=== PATIENT | male | born 1940 | race Caucasian/White ===

== ENCOUNTER 2017-09-07 21:29 | Emergency (ER) | payer MEDICARE ==
--- NOTE | 2017-09-07 22:02 | ED Physician Documentation ---
PD HPI Fall - Stated complaint Stated Complaint: GLF/LFA & FINGER INJURY - Chief complaint Chief Complaint: Laceration - History obtained from History obtained from: Patient - History of Present Illness Timing - onset: How many hours ago (2) Injury(ies) location: Left Uppper Extremity Associated symptoms: No: LOC, AMS, Neck pain, Weakness, Paresthesias Recently seen: Not recently seen - Additional information Additional information: while mowing lawn, fell from mower onto a retaining wall, sustained injury to left FA and left fifth finger. he is right-hand dominant. last tetanus shot unknown. Review of Systems Skin: reports: Abrasion (s), Laceration (s) Musculoskeletal: reports: Extremity pain (mild left fifth finger and left FA pain) Neurologic: denies: Focal weakness, Numbness, Headache, Head injury, LOC PD PAST MEDICAL HISTORY - Past Medical History Past Medical History: Yes Cardiovascular: Hypertension, High cholesterol Endocrine/Autoimmune: Type 2 diabetes, HyPOthyroidism : Nocturia, Frequency Psych: Anxiety Musculoskeletal: Osteoarthritis, Chronic back pain, Other - Past Surgical History Past Surgical History: No - Present Medications Home Medications: Ambulatory Orders Medication Instructions Recorded Confirmed Aspirin 325 mg PO DAILY 09/09/16 12/20/16 Fluticasone Propionate 16 gm NS BID 09/09/16 12/20/16 Furosemide [Lasix] 80 mg PO DAILY 09/09/16 12/20/16 Insulin NPH Hum/Reg Insulin Hm 28 - 50 unit SQ BIDWM 09/09/16 12/20/16 [Humulin 70/30 Kwikpen] Levothyroxine Sodium 100 mcg PO QDBREAKFAST 09/09/16 12/20/16 Lovastatin 20 mg PO QPM 09/09/16 12/20/16 Metformin HCl 1,000 mg PO BIDWM 09/09/16 12/20/16 [place]-3/Dha/Epa/Fish Oil [[place] 3 1 each PO DAILY 09/09/16 12/20/16 500 Softgel] Potassium Chloride 20 meq PO DAILY 09/09/16 12/20/16 Pregabalin [Lyrica] 675 mg PO DAILY 09/09/16 12/20/16 Tamsulosin [Flomax] 0.4 mg PO DAILY 09/09/16 12/20/16 Valsartan [Diovan] 320 mg PO DAILY 09/09/16 12/20/16 - Allergies Allergies/Adverse Reactions: Allergies Allergy/AdvReac Type Severity Reaction Status Date / Time No Known Drug Allergies Allergy Verified 09/07/17 21:37 - Social History Does the pt smoke?: No Smoking Status: Never smoker Does the pt drink ETOH?: No Does the pt have substance abuse?: No - Immunizations Immunizations are current?: No Immunizations: TDAP >10years/unknown PD ED PE NORMAL - Vitals Vital signs reviewed: Yes - General General: Alert and oriented X 3, No acute distress - Extremities Extremities: No tenderness to palpate, Normal ROM s pain - Neuro Neuro: Alert and oriented X 3, No motor deficit, No sensory deficit PD ED PE EXPANDED - Extremities Extremities: Other (ROM intact in left FA (able to supinate and pronate without difficulty or pain)) JOYCE UE/Hands Visual: 1 - bruising, abrasion 2 - laceration (1) 3 - laceration (crescentic skin tear) Results - Vitals Vitals: Vital Signs - 24 hr 09/07/17 09/07/17 21:34 23:34 Temperature 36.5 C 36.7 C Heart Rate 68 66 Respiratory 18 18 Rate Blood Pressure 150/109 H 187/97 H O2 Saturation 97 94 Oxygen O2 Source Room air Procedures - Laceration (location) Finger left Palmar Length in cm: 1 Wound type: Linear Neurovascular status: Sensory intact, Motor intact, Vascular intact Tendon involvement: Tendon intact Anesthesia: Lidocaine 1% Wound Preparation: Chlorhexadine, Irrigated copiously NS, Wound explored. No: FB identified Skin layer closure: Nylon, Running, Size #-0 - enter number (5-0) Other: Patient tolerated well, No complications, Neurovascular intact, Dressing applied, Tetanus booster given Complexity: Simple PD MEDICAL DECISION MAKING - ED course Complexity details: considered differential, d/w patient Departure - Departure Disposition: 01 Home, Self Care Clinical Impression: Injury of hand Qualifiers: Encounter type: initial encounter Laterality: left Qualified Code(s): S69.92XA - Unspecified injury of left wrist, hand and finger(s), initial encounter Laceration of finger of left hand Qualifiers: Encounter type: initial encounter Finger: little finger Damage to nail status: without damage Foreign body presence: without foreign body Qualified Code(s): S61.217A - Laceration without foreign body of left little finger without damage to nail, initial encounter Condition: Good Instructions: ED Laceration Hand Follow-Up: Adrián Ulloa DO [Primary Care Provider] - Comments: You will need the stitches removed in one week Discharge Date/Time: 09/07/17 23:34
[2017-09-07] MEDS ORDERED: TETANUS/DIPHTHERIA/PERTUSSIS 0.5 ML SYRINGE IM ONE (22:22)
[2017-09-07] MEDS ORDERED: LIDOCAINE 1% 2 ML VIAL SUBQ STA (22:22)
[2017-09-07] MEDS ORDERED: LIDOCAINE 1% 2 ML VIAL ONE (22:31)
[2017-09-07 23:39] VITALS: BP 187/97
== END 2017-09-07 23:34 | disposition home or self-care (01) ==
LOC: ED 22:21
DX: S69.92XA Unspecified injury of left wrist, hand and finger(s), initial encounter (principal); S61.217A Laceration without foreign body of left little finger without damage to nail, initial encounter; W22.09XA Striking against other stationary object, initial encounter; W17.89XA Other fall from one level to another, initial encounter; Y93.H2 Activity, gardening and landscaping; E11.9 Type 2 diabetes mellitus without complications; Z23 Encounter for immunization; I10 Essential (primary) hypertension; E03.9 Hypothyroidism, unspecified; E78.00 Pure hypercholesterolemia, unspecified; Z79.4 Long term (current) use of insulin
CPT/HCPCS: 12001; 90471; 99282; 99284

== ENCOUNTER 2018-02-10 10:24 | Outpatient (CLI) | payer MEDICARE | END 2018-02-10 10:25 | disposition EMS.NT | LOC: EMS 10:24 | PROVIDERS: ATTEND Surgery | DX: R73.09 Other abnormal glucose (principal) ==

== ENCOUNTER 2018-10-02 08:00 | Outpatient (CLI) | payer MEDICARE ==
[2018-10-02 14:36] LABS: BASOPHILS # (AUTO) 0.1 10^3/uL (0.0-0.1); BASOPHILS % (AUTO) 0.6 %; EOSINOPHILS # (AUTO) 0.4 10^3/uL (0.0-0.7); EOSINOPHILS % (AUTO) 4.6 %; HGB - HEMOGLOBIN 16.8 g/dL (14.0-18.0); LYMPHOCYTES # (AUTO) 1.7 10^3/uL (1.5-3.5); LYMPHOCYTES % (AUTO) 20.5 %; MEAN CORPUSCULAR HEMOGLOBIN 32.3 pg (27.0-31.0); MEAN CORPUSCULAR HGB CONC 33.6 g/dL (32.0-36.0); MEAN CORPUSCULAR VOLUME 96.1 fL (80.0-94.0); MEAN PLATELET VOLUME 10.6 fL (7.4-11.4); MONOCYTES # (AUTO) 0.7 10^3/uL (0.0-1.0); MONOCYTES % (AUTO) 8.6 %; NEUTROPHILS # (AUTO) 5.5 10^3/uL (1.5-6.6); NEUTROPHILS % (AUTO) 65.7 %; PLT - PLATELET COUNT 133 10^3/uL (130-450); RED BLOOD COUNT 5.21 10^6/uL (4.70-6.10); WHITE BLOOD COUNT 8.4 x10^3/uL (4.8-10.8)
[2018-10-02 14:52] LABS: ALBUMIN 3.6 g/dL (3.2-5.5); ALBUMIN/GLOBULIN RATIO 0.9 (1.0-2.2); ALKALINE PHOSPHATASE 67 IU/L (42-121); ALT ALANINE AMINOTRANSFERASE 20 IU/L (10-60); AST ASPARTATE AMINOTRANSFERASE 24 IU/L (10-42); BILIRUBIN,TOTAL 0.9 mg/dL (0.2-1.0); BUN - BLOOD UREA NITROGEN 25 mg/dL (6-20); CALCIUM 9.2 mg/dL (8.5-10.3); CARBON DIOXIDE - CO2 27 mmol/L (21-32); CHLORIDE 103 mmol/L (101-111); CHOL/HDL RATIO 4.7 (<5.0); CHOLESTEROL 150 mg/dL; CREATININE 1.3 mg/dL (0.6-1.2); GFR - MDRD 53 (>89); GLUCOSE 200 mg/dL (70-100); HDL CHOLESTEROL 32 mg/dL; LDL CHOLESTEROL,CALCULATED 83 mg/dL; LDL/HDL RATIO 2.6 (<3.6); SODIUM 141 mmol/L (135-145); TOTAL PROTEIN 7.6 g/dL (6.7-8.2); VLDL CHOLESTEROL 35 mg/dL
[2018-10-02 15:29] LABS: HB2 TOTAL 18.5 g/dL; HEMOGLOBIN A1C 1.22 g/dL; HEMOGLOBIN A1C % 8.2 % (4.6-6.2)
== END 2018-10-02 23:59 | disposition home or self-care (01) ==
LOC: LAB.WCP 08:00
PROVIDERS: ATTEND Family Medicine
DX: E11.9 Type 2 diabetes mellitus without complications (principal); E03.9 Hypothyroidism, unspecified
CPT/HCPCS: 36415; 80053; 80061; 83036; 83721; 84443; 85025

== ENCOUNTER 2018-12-02 23:35 | Outpatient (CLI) | payer MEDICARE | END 2018-12-02 23:36 | disposition critical access hospital (66) | LOC: EMS 23:35 | PROVIDERS: ATTEND Surgery | DX: R53.1 Weakness (principal); R29.6 Repeated falls | CPT/HCPCS: A0425; A0429 ==

== ENCOUNTER 2018-12-02 23:50 | Emergency (ER) | payer MEDICARE ==
--- NOTE | 2018-12-03 00:03 | ED Physician Documentation ---
History of Present Illness - Stated complaint Stated Complaint: INCREASING WEAKNESS, FALLS - Chief complaint Chief Complaint: Neuro - History obtained from History obtained from: Patient, Family - History of Present Illness Timing: Today - Additonal information Additional information: This is a 78-year-old man who presents with his family complaints that he is just "weak in the knees today". He cannot function. He is fallen 3 times today and after the final fall he was unable to get up so they had to call the ambulance to help get him up. He denies injury in the fall but while he was on the ground trying to get himself up he did scrape up the tops of his toes on both feet. He has been feeling short of breath over the past few days with cough. He did not know if he had asthma or COPD but does use inhalers. He says he has been bringing up phlegm. Patient's been lightheaded but he has not passed out of. He is been nauseous but no vomiting or diarrhea. Denies chest pain or palpitations. The patient is an insulin-dependent diabetic his blood sugar was in the 300s this morning was 188 later in the day. He does not use sliding scale. Patient reports a history of [place] but no stent placement. Denies any dysuria. No fevers. Review of Systems Constitutional: denies: Fever Eyes: denies: Loss of vision Ears: denies: Ear pain Nose: denies: Congestion Throat: denies: Sore throat Cardiac: denies: Chest pain / pressure, Palpitations Respiratory: reports: Dyspnea, Cough GI: reports: Nausea. denies: Abdominal Pain, Vomiting, Diarrhea : denies: Dysuria, Frequency, Incontinent Skin: reports: Abrasion (s). denies: Rash Neurologic: reports: Generalized weakness, Numbness (Diabetic neuropathy) Endocrine: reports: Other (Elevated blood glucose) PD PAST MEDICAL HISTORY - Past Medical History Cardiovascular: Hypertension, High cholesterol Endocrine/Autoimmune: Type 2 diabetes, HyPOthyroidism : Nocturia, Frequency Psych: Anxiety Musculoskeletal: Osteoarthritis, Chronic back pain, Other - Past Surgical History Past Surgical History: No - Present Medications Home Medications: Ambulatory Orders Medication Instructions Recorded Confirmed Furosemide [Lasix] 40 mg PO DAILY 09/09/16 12/03/18 Insulin NPH Hum/Reg Insulin Hm 28 - 50 unit SQ BIDWM 09/09/16 12/03/18 [Humulin 70/30 Kwikpen] [place]-3/Dha/Epa/Fish Oil [[place] 3 1 each PO DAILY 09/09/16 12/03/18 500 Softgel] Pregabalin [Lyrica] 675 mg PO DAILY 09/09/16 12/03/18 RX: Aspirin 325 mg PO DAILY 09/09/16 12/03/18 RX: Levothyroxine Sodium 100 mcg PO QDBREAKFAST 09/09/16 12/03/18 RX: Lovastatin 20 mg PO QPM 09/09/16 12/03/18 RX: Potassium Chloride 20 meq PO DAILY 09/09/16 12/03/18 Valsartan [Diovan] 320 mg PO DAILY 09/09/16 12/03/18 RX: Carvedilol 2 tab PO BID 12/03/18 12/03/18 RX: Gabapentin 2 cap PO QPM 12/03/18 12/03/18 - Allergies Allergies/Adverse Reactions: Allergies Allergy/AdvReac Type Severity Reaction Status Date / Time No Known Drug Allergies Allergy Verified 12/03/18 00:30 - Social History Does the pt smoke?: No Smoking Status: Never smoker Does the pt drink ETOH?: No Does the pt have substance abuse?: No - Immunizations Immunizations are current?: No Immunizations: TDAP >10years/unknown PD ED PE NORMAL - Vitals Vital signs reviewed: Yes - General General: Alert and oriented X 3, No acute distress, Well developed/nourished - HEENT HEENT: Atraumatic, PERRL, EOMI, Moist mucous membranes - Neck Neck: No adenopathy, Thyroid normal, No bruit - Cardiac Cardiac: RRR, No murmur, Strong equal pulses - Respiratory Respiratory: No respiratory distress, Clear bilaterally - Abdomen Abdomen: Normal bowel sounds, Soft, Non tender, Non distended - Derm Derm: Normal color, Warm and dry, No rash, Other (Abrasions over the tops of the great and second toes both feet worse on the left than the right.) - Extremities Extremities: No deformity, Other (There is 1+ pitting edema of the lower extremity on the right and some pedal edema on the left.) - Neuro Neuro: Alert and oriented X 3, child welfare caseworker 2-12 intact, No motor deficit, Normal speech, Other (Diminished sensation from about the just above the ankles to the feet bilaterally.) - Psych Psych: Normal mood, Normal affect Results - Vitals Vitals: Vital Signs - 24 hr 12/02/18 12/03/18 12/03/18 23:52 00:26 00:44 Temperature 37.2 C Heart Rate 69 94 66 Respiratory 18 16 14 Rate Blood Pressure 146/88 H 164/71 H 154/90 H O2 Saturation 95 66 L 93 12/03/18 12/03/18 02:23 03:07 Temperature 36.7 C Heart Rate 70 63 Respiratory 14 20 Rate Blood Pressure 132/40 H 117/84 H O2 Saturation 94 96 Oxygen O2 Source Room air - EKG (time done) 2352 Rate: Rate (enter#) Rhythm: NSR Intervals: LBBB Ischemia: Non specific changes Compare to prior EKG: Old EKG unavailable Computer interpretation: Agree with computer - Labs Labs: Laboratory Tests 12/03/18 12/03/18 12/03/18 00:15 00:29 00:29 WBC 13.7 H RBC 5.08 Hgb 16.6 Hct 50.3 MCV 99.0 H MCH 32.7 H MCHC 33.0 RDW 13.5 Plt Count 144 MPV 11.4 Neut # (Auto) 10.8 H Lymph # (Auto) 1.4 L [place] # (Auto) 1.1 H Eos # (Auto) 0.3 Baso # (Auto) 0.1 Absolute Nucleated RBC 0.00 Nucleated RBC % 0.0 Sodium 144 Potassium 4.0 Chloride 106 Carbon Dioxide 27 Anion Gap 11.0 BUN 34 H Creatinine 1.5 H Estimated GFR (MDRD) 45 L Glucose 77 Calcium 9.0 Total Bilirubin 1.3 H AST 44 H ALT 24 Alkaline Phosphatase 64 Troponin I High Sens Total Protein 7.2 Albumin 3.6 Globulin 3.6 Albumin/Globulin Ratio 1.0 Lipase 34 Urine Color YELLOW Urine Clarity CLEAR Urine pH 5.0 Ur Specific [place] 1.025 Urine Protein 30 H Urine Glucose (UA) 250 H Urine Ketones NEGATIVE Urine Occult Blood NEGATIVE Urine Nitrite NEGATIVE Urine Bilirubin NEGATIVE Urine Urobilinogen 0.2 (NORMAL) Ur Leukocyte Esterase NEGATIVE Urine RBC None Seen Urine WBC 0-3 Ur Squamous Epith Cells MOD Squamous H Urine Bacteria Rare Urine Casts 6-10 Hyaline Casts Ur Microscopic Review INDICATED Urine Culture Comments NOT INDICATED 12/03/18 00:29 WBC RBC Hgb Hct MCV MCH MCHC RDW Plt Count MPV Neut # (Auto) Lymph # (Auto) [place] # (Auto) Eos # (Auto) Baso # (Auto) Absolute Nucleated RBC Nucleated RBC % Sodium Potassium Chloride Carbon Dioxide Anion Gap BUN Creatinine Estimated GFR (MDRD) Glucose Calcium Total Bilirubin AST ALT Alkaline Phosphatase Troponin I High Sens 9.9 Total Protein Albumin Globulin Albumin/Globulin Ratio Lipase Urine Color Urine Clarity Urine pH Ur Specific [place] Urine Protein Urine Glucose (UA) Urine Ketones Urine Occult Blood Urine Nitrite Urine Bilirubin Urine Urobilinogen Ur Leukocyte Esterase Urine RBC Urine WBC Ur Squamous Epith Cells Urine Bacteria Urine Casts Ur Microscopic Review Urine Culture Comments PD MEDICAL DECISION MAKING - ED course Complexity details: reviewed results, d/w patient, d/w family ED course: EKG does not show acute ischemic changes. His high-sensitivity troponin is normal. Minimal elevation of his white blood cell count but normal electrolytes and negative urinalysis. Patient does have a walker at home but does not use it consistently and eats when he is not using a walker that he falls. He is referred back to his primary care provider for further management and return to the emergency department if problems arise. Departure - Departure Disposition: 01 Home, Self Care Clinical Impression: Weakness, Falls frequently Condition: Good Instructions: ED Weakness [facility]O Follow-Up: Adrián Ulloa DO [Primary Care Provider] - Comments: Use your walker at all times when you are up and ambulating. Make a follow-up appointment your primary care provider to evaluate the frequent falls to see if there is a reason that can be found for them. Discharge Date/Time: 12/03/18 03:35
[2018-12-03 00:28] LABS: BILIRUBIN,URINE NEGATIVE (NEGATIVE); GLUCOSE, URINE (UA) 250 mg/dL (NEGATIVE); KETONES,URINE (UA) NEGATIVE (NEGATIVE); LEUKOCYTE ESTERASE, URINE NEGATIVE (NEGATIVE); NITRITE,URINE NEGATIVE (NEGATIVE); OCCULT BLOOD,URINE NEGATIVE (NEGATIVE); PROTEIN,URINE 30 mg/dL (NEGATIVE); UROBILINOGEN,URINE 0.2 (NORMAL) E.U./dL (NORMAL)
[2018-12-03 00:31] LABS: CLARITY,URINE CLEAR (CLEAR)
[2018-12-03 00:42] LABS: BACTERIA,URINE Rare /HPF (None Seen); CASTS, URINE 6-10 Hyaline Casts /LPF; RBC,URINE None Seen /HPF (0-5); SQUAMOUS EPITHELIAL CELL,UR MOD Squamous (<= Few)
[2018-12-03 00:43] LABS: BASOPHILS # (AUTO) 0.1 10^3/uL (0.0-0.1); BASOPHILS % (AUTO) 0.4 %; EOSINOPHILS # (AUTO) 0.3 10^3/uL (0.0-0.7); HGB - HEMOGLOBIN 16.6 g/dL (14.0-18.0); LYMPHOCYTES # (AUTO) 1.4 10^3/uL (1.5-3.5); LYMPHOCYTES % (AUTO) 10.1 %; MEAN CORPUSCULAR HEMOGLOBIN 32.7 pg (27.0-31.0); MEAN PLATELET VOLUME 11.4 fL (7.4-11.4); MONOCYTES # (AUTO) 1.1 10^3/uL (0.0-1.0); NEUTROPHILS # (AUTO) 10.8 10^3/uL (1.5-6.6); NEUTROPHILS % (AUTO) 78.8 %; PLT - PLATELET COUNT 144 10^3/uL (130-450); RED BLOOD COUNT 5.08 10^6/uL (4.70-6.10); RED CELL DISTRIBUTION WIDTH 13.5 % (12.0-15.0); WHITE BLOOD COUNT 13.7 x10^3/uL (4.8-10.8)
[2018-12-03 00:52] LABS: ALBUMIN 3.6 g/dL (3.2-5.5); BILIRUBIN,TOTAL 1.3 mg/dL (0.2-1.0); CREATININE 1.5 mg/dL (0.6-1.2); TOTAL PROTEIN 7.2 g/dL (6.7-8.2)
[2018-12-03 03:08] VITALS: BP 117/84
== END 2018-12-03 03:35 | disposition home or self-care (01) ==
LOC: EDUNIT# → ED 23:50
DX: R53.1 Weakness (principal); S90.412A Abrasion, left great toe, initial encounter; S90.411A Abrasion, right great toe, initial encounter; S90.415A Abrasion, left lesser toe(s), initial encounter; S90.414A Abrasion, right lesser toe(s), initial encounter; W19.XXXA Unspecified fall, initial encounter; I10 Essential (primary) hypertension; E11.9 Type 2 diabetes mellitus without complications; Z91.81 History of falling; Z79.4 Long term (current) use of insulin
CPT/HCPCS: 36415; 80053; 81001; 81003; 83690; 84484; 85025; 87086; 93005; 99284

== ENCOUNTER 2018-12-05 08:00 | Outpatient (CLI) | payer MEDICARE ==
[2018-12-05 18:59] LABS: BASOPHILS # (AUTO) 0.1 10^3/uL (0.0-0.1); BASOPHILS % (AUTO) 0.5 %; EOSINOPHILS # (AUTO) 0.4 10^3/uL (0.0-0.7); EOSINOPHILS % (AUTO) 4.2 %; HGB - HEMOGLOBIN 15.9 g/dL (14.0-18.0); LYMPHOCYTES # (AUTO) 1.8 10^3/uL (1.5-3.5); LYMPHOCYTES % (AUTO) 19.8 %; MEAN CORPUSCULAR HEMOGLOBIN 32.3 pg (27.0-31.0); MEAN PLATELET VOLUME 12.3 fL (7.4-11.4); MONOCYTES # (AUTO) 0.9 10^3/uL (0.0-1.0); MONOCYTES % (AUTO) 10.3 %; NEUTROPHILS # (AUTO) 5.9 10^3/uL (1.5-6.6); NEUTROPHILS % (AUTO) 64.5 %; PLT - PLATELET COUNT 161 10^3/uL (130-450); RED BLOOD COUNT 4.92 10^6/uL (4.70-6.10); RED CELL DISTRIBUTION WIDTH 13.5 % (12.0-15.0); WHITE BLOOD COUNT 9.1 x10^3/uL (4.8-10.8)
[2018-12-05 19:22] LABS: CRP - C-REACTIVE PROTEIN 1.9 mg/dL (0-1.0)
== END 2018-12-05 23:59 | disposition home or self-care (01) ==
LOC: LAB.WCP 08:00
PROVIDERS: ATTEND Family Medicine
DX: R53.1 Weakness (principal); M54.5 Low back pain; D72.829 Elevated white blood cell count, unspecified
CPT/HCPCS: 36415; 82550; 85025; 85651; 86140

== ENCOUNTER 2019-01-03 02:33 | Outpatient (CLI) | payer MEDICARE | END 2019-01-03 02:34 | disposition short-term general hospital (02) | LOC: EMS 02:33 | PROVIDERS: ATTEND Surgery | DX: R41.82 Altered mental status, unspecified (principal); R73.09 Other abnormal glucose | CPT/HCPCS: A0425; A0427; A0888 ==

== ENCOUNTER 2019-01-07 14:44 | Outpatient (CLI) | payer MEDICARE ==
[2019-01-08 15:48] VITALS: BP 140/90
--- NOTE | 2019-01-08 15:48 | SLEEP CARE CONSULTATION ---
Information from patient questionnaire entered by Imelda Preciado. I have reviewed and concur with the information entered by Imelda Preciado. This document represents the service I personally performed and the decisions made by me, Harriet Lee MD, [facility]. History of Present Illness Reason for Visit: New patient Chief Complaint: reports: Insomnia, Unrefreshed sleep, Snoring, Excessive daytime sleepiness, Observed pauses in breathing, Fatigue, Frequent awakenings at night Duration of Symptoms: 2 MONTHS Snores at night: Yes Observed to quit breathing while asleep: No Sleeps alone due to snoring: Yes Number of times waking at night: 1 Toss, Turn, or Twitch while sleeping: No Recalls having dreams: No Usually gets out of bed at: 0700 Morning headache: No Sleepy or fatigued during the day: No Ever fallen asleep while driving: No Takes day naps: Yes Dreams during day naps: No Additional HPI information: I had the pleasure of seeing Mr. Cormier today regarding the possibility of him having a sleep disorder. As you know, he is a 78 year old gentleman who complains of insomnia, loud snore, frequent awakenings, unrefreshed sleep persistent fatigue, and excessive daytime sleepiness for the past few months. The patient tells me that he normally goes to bed around 8 - 9 pm, and it takes him approximately just a few minutes to fall asleep. He has not been told that he snores loudly and irregularly at night. He has never been observed to stop breathing in his sleep. His can still sleep in the same bed. He can recall waking up on the average of one time during the night. Most of the time he wakes up because of having to use the bathroom. He has never awakened because of his own snoring, choking, or having to gasp for air. There is not a lot of tossing and turning in his sleep. No somniloquy (sleep talking) or somnambulism (sleep walking). Generally he cannot recall having dreams. In the morning he usually gets up out of the bed around 7 a.m. feeling refreshed and rested. He usually does not have a morning headache. During the day he complains of feeling sleepy and fatigued. His score on [place] Sleepiness Scale is 23 out of 24. He has never fallen asleep while driving nor has had any accident due to sleepiness. He usually takes 2 naps during the day. Upon falling asleep during the day he denies having vivid dreams. He has never had sleep paralysis, experienced cataplexy or symptoms of restless leg syndrome. He denies having impaired concentration during the day. Subjective Initial [place] Sleepiness Scale score: 23 Social History The patient's occupation is RETIRED. Patient is and lives in [place]. Have you smoked in the past 12 months: Yes Alcohol use: No Caffeine use: No Allergies and Home Medications Drug allergies reviewed: Yes Home medication list reviewed: Yes Review of Systems Cardiovascular: reports: leg or foot swelling Respiratory: denies: shortness of breath, wheeze, sputum production, chronic cough, other Gastrointestinal: denies: heartburn, difficulty swallowing, nausea, vomitting, diarrhea, abdominal pain, other Urinary: denies: incontinence, frequency, urgency, impotence, other Neurological: denies: headaches, seizure, head trauma, disorientation, speech dysfunction, gait or balance problems, fainting or unconsciousness, other Psychiatric: denies: Attention Deficit Hyperactivity, anxiety, depression, mood disorder, claustrophobia, other Ear/Nose/Throat: denies: nasal congestion, sinus problems, nose bleeds, dry mouth/throat, hoarseness, injury to nose, tonsillectomy, wisdom teeth removed, other Endocrine: denies: thyroid disease, history of goiter, sluggishness, too hot or cold, excessive thirst, increased appetite, increased urination, unexplained weakness, other Musculoskeletal: reports: back pain Immunologic: denies: sneezing, rash, itching, allergies to food or environment, other Physical Exam Vital signs obtained and entered by: Dr. Lee Blood Pressure: 140/90 Cuff size: long Heart Rate: 73 O2 Saturation: 93 Height: 5 ft 9 in Weight (kg): 246 lb Body Mass Index: 36.3 BMI Classification: Class 2 Neck circumference: 16.5 Mood/affect: normal HEENT: No craniofacial malformation Nostrils: patent to airflow Turbinates: normal Septum: midline Mouth and throat: narrow oropharynx Soft palate: long Hard palate: normal Uvula: normal Uvula visualization: 25% Mallampati Class III Tongue: normal in size Tonsils: absent bilaterally Chin and jaw: normal size and position Neck: normal w/o lymphadenopathy or thyromegaly Heart: regular rate and rhythm Lungs: clear bilaterally Abdomen: soft Extremities: 1+ edema Neurologic: intact Impression and Plan IMPRESSION: 1. Obstructive Sleep Apnea-Hypopnea Syndrome, as suggested by history of loud and irregular snoring and daytime hypersomnolence. Narrow oropharynx and obesity are common predisposing factors for obstructive sleep apnea-hypopnea syndrome. Untreated obstructive sleep apnea can also cause hypertension. Pathophysiology of sleep-disordered breathing was discussed. I recommend proceeding to polysomnography to confirm the diagnosis and to assess severity. I informed the patient of what the sleep studies involve and after some discussion, he agreed to proceed. Plan: 1. Schedule polysomnography and return in 1 to 2 weeks after the study to discuss result and initiate therapy. 2. Avoid long distance driving or when feeling sleepy. 3. Avoid alcohol, sedative and muscle relaxant around bedtime. 4. Attempt to lose weight. I spent 100% of this 15 minute visit face to face with the patient with greater than 50% of this was spent time counseling the patient and coordination of care.
== END 2019-01-07 14:45 | disposition home or self-care (01) ==
LOC: SC 14:44
PROVIDERS: ATTEND Internal Medicine Pulmonary Disease
DX: G47.10 Hypersomnia, unspecified (principal); R06.83 Snoring
CPT/HCPCS: 99203; G0463; 99212

== ENCOUNTER 2019-02-13 08:00 | Outpatient (CLI) | payer MEDICARE ==
[2019-02-13 12:42] LABS: ALBUMIN 3.6 g/dL (3.2-5.5); BILIRUBIN,TOTAL 1.1 mg/dL (0.2-1.0); CALCIUM 9.1 mg/dL (8.5-10.3); CREATININE 1.3 mg/dL (0.6-1.2); TOTAL PROTEIN 7.3 g/dL (6.7-8.2)
[2019-02-13 13:32] LABS: HB2 TOTAL 17.9 g/dL; HEMOGLOBIN A1C 1.01 g/dL; HEMOGLOBIN A1C % 7.3 % (4.6-6.2)
== END 2019-02-13 23:59 | disposition home or self-care (01) ==
LOC: LAB.WCP 08:00
PROVIDERS: ATTEND Family Medicine
DX: E11.9 Type 2 diabetes mellitus without complications (principal); Z12.5 Encounter for screening for malignant neoplasm of prostate
CPT/HCPCS: 36415; 80053; 83036; G0103; 84153

== ENCOUNTER 2019-07-05 08:00 | Outpatient (CLI) | payer MEDICARE ==
[2019-07-05 12:23] LABS: BASOPHILS # (AUTO) 0.1 10^3/uL (0.0-0.1); BASOPHILS % (AUTO) 0.7 %; EOSINOPHILS # (AUTO) 0.5 10^3/uL (0.0-0.7); EOSINOPHILS % (AUTO) 5.9 %; HGB - HEMOGLOBIN 17.5 g/dL (14.0-18.0); LYMPHOCYTES # (AUTO) 1.6 10^3/uL (1.5-3.5); LYMPHOCYTES % (AUTO) 19.9 %; MEAN CORPUSCULAR HEMOGLOBIN 32.8 pg (27.0-31.0); MEAN CORPUSCULAR HGB CONC 33.3 g/dL (32.0-36.0); MEAN CORPUSCULAR VOLUME 98.5 fL (80.0-94.0); MONOCYTES # (AUTO) 0.9 10^3/uL (0.0-1.0); MONOCYTES % (AUTO) 10.6 %; NEUTROPHILS # (AUTO) 5.1 10^3/uL (1.5-6.6); PLT - PLATELET COUNT 161 10^3/uL (130-450); RED BLOOD COUNT 5.33 10^6/uL (4.70-6.10); RED CELL DISTRIBUTION WIDTH 13.4 % (12.0-15.0); WHITE BLOOD COUNT 8.2 x10^3/uL (4.8-10.8)
[2019-07-05 12:38] LABS: INR 1.2 (0.8-1.2); PT - PROTHROMBIN TIME 13.9 secs (9.9-12.6)
[2019-07-05 12:45] LABS: PARTIAL THROMBOPLASTIN TIME 37.8 secs (24.9-33.3)
[2019-07-05 12:54] LABS: ALBUMIN 3.8 g/dL (3.2-5.5); BILIRUBIN,TOTAL 1.1 mg/dL (0.2-1.0); CREATININE 1.2 mg/dL (0.6-1.2); TOTAL PROTEIN 7.5 g/dL (6.7-8.2)
[2019-07-05 13:18] LABS: HB2 TOTAL 17.9 g/dL; HEMOGLOBIN A1C 1.16 g/dL; HEMOGLOBIN A1C % 8.1 % (4.6-6.2)
== END 2019-07-05 23:59 | disposition home or self-care (01) ==
LOC: LAB.WCP 08:00
PROVIDERS: ATTEND Family Medicine
DX: G91.2 (Idiopathic) normal pressure hydrocephalus (principal); E11.9 Type 2 diabetes mellitus without complications
CPT/HCPCS: 36415; 80053; 83036; 85025; 85610; 85730; 87640

== ENCOUNTER 2019-08-07 13:23 | Outpatient (CLI) | payer MEDICARE | END 2019-08-07 13:24 | disposition short-term general hospital (02) | LOC: EMS 13:23 | PROVIDERS: ATTEND Surgery | DX: S09.90XA Unspecified injury of head, initial encounter (principal); R42 Dizziness and giddiness; W11.XXXA Fall on and from ladder, initial encounter; Y92.099 Unspecified place in other non-institutional residence as the place of occurrence of the external cause; R41.82 Altered mental status, unspecified | CPT/HCPCS: A0425; A0429 ==

== ENCOUNTER 2019-09-26 08:12 | Outpatient (CLI) | payer MEDICARE ==
[2019-09-26 12:04] LABS: BASOPHILS # (AUTO) 0.1 10^3/uL (0.0-0.1); BASOPHILS % (AUTO) 0.7 %; EOSINOPHILS # (AUTO) 0.4 10^3/uL (0.0-0.7); EOSINOPHILS % (AUTO) 4.4 %; HGB - HEMOGLOBIN 17.2 g/dL (14.0-18.0); LYMPHOCYTES # (AUTO) 1.9 10^3/uL (1.5-3.5); LYMPHOCYTES % (AUTO) 21.5 %; MEAN CORPUSCULAR HEMOGLOBIN 32.8 pg (27.0-31.0); MEAN CORPUSCULAR VOLUME 99.4 fL (80.0-94.0); MEAN PLATELET VOLUME 12.5 fL (7.4-11.4); MONOCYTES # (AUTO) 0.8 10^3/uL (0.0-1.0); MONOCYTES % (AUTO) 9.3 %; NEUTROPHILS # (AUTO) 5.5 10^3/uL (1.5-6.6); NEUTROPHILS % (AUTO) 63.2 %; PLT - PLATELET COUNT 137 10^3/uL (130-450); RED BLOOD COUNT 5.24 10^6/uL (4.70-6.10); RED CELL DISTRIBUTION WIDTH 13.4 % (12.0-15.0); WHITE BLOOD COUNT 8.7 x10^3/uL (4.8-10.8)
[2019-09-26 12:13] LABS: INR 1.2 (0.8-1.2); PT - PROTHROMBIN TIME 13.4 secs (9.9-12.6)
[2019-09-26 12:21] LABS: PARTIAL THROMBOPLASTIN TIME 37.6 secs (24.9-33.3)
[2019-09-26 12:34] LABS: ALBUMIN 3.5 g/dL (3.2-5.5); ALBUMIN/GLOBULIN RATIO 0.9 (1.0-2.2); BILIRUBIN,TOTAL 0.9 mg/dL (0.2-1.0); CALCIUM 8.7 mg/dL (8.5-10.3); CREATININE 1.3 mg/dL (0.6-1.2); TOTAL PROTEIN 7.2 g/dL (6.7-8.2)
[2019-09-26 12:50] LABS: HB2 TOTAL 18.1 g/dL; HEMOGLOBIN A1C 1.13 g/dL; HEMOGLOBIN A1C % 7.9 % (4.6-6.2)
== END 2019-09-26 23:59 | disposition home or self-care (01) ==
LOC: LAB.WCP 08:12
PROVIDERS: ATTEND Family Medicine
DX: G91.2 (Idiopathic) normal pressure hydrocephalus (principal)
CPT/HCPCS: 36415; 80053; 83036; 85025; 85610; 85730; 87640

== ENCOUNTER 2020-06-03 08:00 | Outpatient (CLI) | payer MEDICARE ==
[2020-06-03 13:35] LABS: BASOPHILS # (AUTO) 0.1 10^3/uL (0.0-0.1); BASOPHILS % (AUTO) 0.9 %; EOSINOPHILS # (AUTO) 0.8 10^3/uL (0.0-0.7); EOSINOPHILS % (AUTO) 8.9 %; HGB - HEMOGLOBIN 16.8 g/dL (14.0-18.0); LYMPHOCYTES # (AUTO) 2.2 10^3/uL (1.5-3.5); LYMPHOCYTES % (AUTO) 23.9 %; MEAN CORPUSCULAR HEMOGLOBIN 33.3 pg (27.0-31.0); MEAN CORPUSCULAR HGB CONC 32.9 g/dL (32.0-36.0); MEAN CORPUSCULAR VOLUME 101.4 fL (80.0-94.0); MEAN PLATELET VOLUME 12.6 fL (7.4-11.4); MONOCYTES # (AUTO) 0.8 10^3/uL (0.0-1.0); MONOCYTES % (AUTO) 9.1 %; NEUTROPHILS # (AUTO) 5.2 10^3/uL (1.5-6.6); NEUTROPHILS % (AUTO) 56.4 %; PLT - PLATELET COUNT 152 10^3/uL (130-450); RED BLOOD COUNT 5.04 10^6/uL (4.70-6.10); RED CELL DISTRIBUTION WIDTH 13.2 % (12.0-15.0); WHITE BLOOD COUNT 9.1 x10^3/uL (4.8-10.8)
[2020-06-03 14:10] LABS: ALBUMIN 3.6 g/dL (3.2-5.5); ALKALINE PHOSPHATASE 77 IU/L (42-121); ALT ALANINE AMINOTRANSFERASE 15 IU/L (10-60); AST ASPARTATE AMINOTRANSFERASE 14 IU/L (10-42); BILIRUBIN,TOTAL 0.9 mg/dL (0.2-1.0); BUN - BLOOD UREA NITROGEN 27 mg/dL (6-20); CALCIUM 9.1 mg/dL (8.5-10.3); CARBON DIOXIDE - CO2 30 mmol/L (21-32); CHLORIDE 99 mmol/L (101-111); CHOL/HDL RATIO 4.7 (<5.0); CHOLESTEROL 147 mg/dL; CREATININE 1.2 mg/dL (0.6-1.2); GLUCOSE 163 mg/dL (70-100); HDL CHOLESTEROL 31 mg/dL; LDL CHOLESTEROL,CALCULATED 83 mg/dL; LDL/HDL RATIO 2.7 (<3.6); TOTAL PROTEIN 7.3 g/dL (6.7-8.2); VLDL CHOLESTEROL 33 mg/dL
[2020-06-03 14:59] LABS: HEMOGLOBIN A1c% 8.3 % (4.27-6.07)
[2020-06-03 17:57] LABS: FREE T4 (FREE THYROXINE) 0.92 ng/dL (0.58-1.64)
[2020-06-03 18:25] LABS: CREATININE,URINE 155.2 mg/dL; MICROALBUM/CREATININE RATIO,UR 42.5 ug/mg (<30.0); MICROALBUMIN,URINE 6.6 mg/dL (0-300.0)
== END 2020-06-03 23:59 | disposition home or self-care (01) ==
LOC: LAB.WCP 08:00
PROVIDERS: ATTEND Family Medicine
DX: E11.9 Type 2 diabetes mellitus without complications (principal)
CPT/HCPCS: 36415; 80053; 80061; 82043; 82570; 83036; 83721; 84439; 84443; 85025

== ENCOUNTER 2020-12-21 12:15 | Outpatient (CLI) | payer MEDICARE ==
--- NOTE | 2020-12-21 17:58 | XRAY Report ---
PROCEDURE: Lumbar Spine 2 View INDICATIONS: ACUTE LOW BACK PX TECHNIQUE: 3 views of the lumbar spine were acquired. COMPARISON: None. FINDINGS: Bones: 5 [id number] vertebrae are present. Severe disc height loss at L2-3 and moderate disc he ight loss L4-5 and L5-S1. Degenerative vertebral body height loss and endplate spur formation at ever y level. Moderate osteophytosis throughout the lumbar spine.. Bone alignment is normal. No vertebral body compression fractures. No suspicious bony lesions. Soft tissues: Overlying bowel gas pattern is normal. No suspicious soft tissue calcifications. Justin triculoperitoneal shunt tubing courses over the right abdomen and terminates in the pelvis. There is moderate atherosclerotic calcification. IMPRESSION: 1. There is severe degenerative disc height loss at L2-3 and moderate disc height loss elsewhere. 2. No acute vertebral body fractures. If there is continued concern for occult fracture, consider MR imaging. Reviewed by: Ludmila Roque MD on 12/21/2020 5:56 PM PDT Approved by: Ludmila Roque MD on 12/21/2020 5:56 PM PDT Station ID: [id number]
== END 2020-12-21 12:16 | disposition home or self-care (01) ==
LOC: DI.N 12:15
PROVIDERS: ATTEND Family Medicine
DX: M51.36 Other intervertebral disc degeneration, lumbar region (principal); M51.37 Other intervertebral disc degeneration, lumbosacral region; E11.9 Type 2 diabetes mellitus without complications
CPT/HCPCS: 36415; 80053; 83036

== ENCOUNTER 2020-12-21 12:21 | Outpatient (CLI) | payer MEDICARE ==
[2020-12-21 18:17] LABS: ALBUMIN 3.7 g/dL (3.2-5.5); ALBUMIN/GLOBULIN RATIO 0.9 (1.0-2.2); BILIRUBIN,TOTAL 1.3 mg/dL (0.2-1.0); CALCIUM 9.3 mg/dL (8.5-10.3); CREATININE 1.3 mg/dL (0.6-1.2); POTASSIUM 4.2 mmol/L (3.5-5.0); TOTAL PROTEIN 7.9 g/dL (6.7-8.2)
[2020-12-21 20:05] LABS: ESTIMATED AVERAGE GLUCOSE 209 mg/dL (70-100); HEMOGLOBIN A1c% 8.9 % (4.27-6.07)
== END 2020-12-21 12:22 | disposition home or self-care (01) ==
LOC: LAB.N 12:21
PROVIDERS: ATTEND Family Medicine
DX: E11.9 Type 2 diabetes mellitus without complications (principal)
CPT/HCPCS: 36415; 80053; 83036

== ENCOUNTER 2020-12-23 08:00 | Outpatient (CLI) | payer MEDICARE | END 2020-12-23 23:59 | disposition home or self-care (01) | LOC: LAB.WCP 08:00 | PROVIDERS: ATTEND Family Medicine | DX: R05 Cough (principal); Z20.822 Contact with and (suspected) exposure to COVID-19 ==

== ENCOUNTER 2020-12-23 08:34 | Outpatient (CLI) | payer MEDICARE ==
--- NOTE | 2020-12-23 09:31 | XRAY Report ---
PROCEDURE: Chest 2 View X-Ray INDICATIONS: COUGH TECHNIQUE: 2 view(s) of the chest. COMPARISON: None. FINDINGS: Surgical changes and devices: None. Lungs and pleura: No pleural effusions or pneumothorax. Lungs are abnormal, with a chronic intersti tial prominence. Considering differences in technique this likely has not worsened. No focal pneumoni a found. Mediastinum: Mediastinal contours are normal. Heart size is at the upper limits of normal. Bones and chest wall: No suspicious bony abnormalities. Soft tissues appear unremarkable. IMPRESSION: Chronic interstitial prominence, heart size at the upper limits of normal but focal pneu monia or definite acute congestive heart failure is not found. Note is made of a catheter like device crossing over the right neck and medial right chest and tobin sing inferiorly towards the abdomen, potentially evidence of a ventriculostomy catheter. Reviewed by: Marcin Cha MD on 12/23/2020 9:29 AM PDT Approved by: Marcin Cha MD on 12/23/2020 9:29 AM PDT Station ID: [id number]
== END 2020-12-23 08:35 | disposition home or self-care (01) ==
LOC: DI.N 08:34
PROVIDERS: ATTEND Family Medicine
DX: R05 Cough (principal); J84.9 Interstitial pulmonary disease, unspecified; Z20.822 Contact with and (suspected) exposure to COVID-19
CPT/HCPCS: 71046; U0004

== ENCOUNTER 2020-12-31 21:06 | Observation (INO) | payer MEDICARE ==
[2020-12-31] MEDS ORDERED: IOPAMIDOL-300 100 ML VIAL ONE (21:38)
--- NOTE | 2020-12-31 21:38 | ED Physician Documentation ---
History of Present Illness - Stated complaint Stated Complaint: WEAKNESS - Chief complaint Chief Complaint: Neuro - Additonal information Additional information: 80-year-old male who carries a history of diabetes and hypertension presents to the emergency department for evaluation of right-sided weakness as well as multiple falls. now reporting right hand weakness and right hip pain. This gentleman reports that at baseline he usually walks with a walker but over the last month he has fallen approximately 5 times. He states that he simply loses his balance and falls backward. He states that now his right hand is mildly weak. He is unsure if this is occurred since the fall last night or if it has been getting progressively worse over the last week. He states he is having difficulty holding a pen or doing fine motor movements. Patient denies that he is having a syncopal episodes. He has not had any lapses in consciousness. He denies chest pain or shortness of air. He has baseline bilateral lower extremity edema which is unchanged. He has no cough or fevers. He is fully vaccinated for COVID-19. Review of Systems Constitutional: denies: Fever, Chills Eyes: reports: Reviewed and negative Ears: reports: Reviewed and negative Nose: reports: Reviewed and negative Throat: reports: Reviewed and negative Cardiac: reports: Pedal edema (at baseline). denies: Chest pain / pressure, Palpitations Respiratory: reports: Reviewed and negative GI: reports: Reviewed and negative : reports: Reviewed and negative Skin: denies: Rash, Lesions Musculoskeletal: reports: Joint pain (right hip) Neurologic: reports: Focal weakness (right hand). denies: Syncope, Seizure, Confused, Altered mental status, Headache, Head injury, LOC PD PAST MEDICAL HISTORY - Past Medical History Cardiovascular: Hypertension, High cholesterol Endocrine/Autoimmune: Type 2 diabetes, HyPOthyroidism : Nocturia, Frequency Psych: Anxiety Musculoskeletal: Osteoarthritis, Chronic back pain, Other - Past Surgical History Past Surgical History: No - Present Medications Home Medications: Ambulatory Orders Medication Instructions Recorded Confirmed Aspirin 325 mg PO DAILY 09/09/16 12/31/20 Furosemide [Lasix] 40 mg PO DAILY 09/09/16 12/31/20 Insulin NPH Hum/Reg Insulin Hm 28 - 50 unit SQ BIDWM 09/09/16 12/31/20 [Humulin 70/30 Kwikpen] Levothyroxine Sodium 100 mcg PO QDBREAKFAST 09/09/16 12/31/20 Lovastatin 20 mg PO QPM 09/09/16 12/31/20 [place]-3/Dha/Epa/Fish Oil [[place] 3 1 each PO DAILY 09/09/16 12/31/20 500 Softgel] Potassium Chloride 20 meq PO DAILY 09/09/16 12/31/20 Pregabalin [Lyrica] 675 mg PO DAILY 09/09/16 12/31/20 Carvedilol 1 tab PO BID 12/03/18 12/31/20 Gabapentin 3 cap PO QPM 12/03/18 12/31/20 Telmisartan 80 mg PO QID 12/31/20 12/31/20 allopurinoL [Zyloprim] 200 mg PO QID 12/31/20 12/31/20 - Allergies Allergies/Adverse Reactions: Allergies Allergy/AdvReac Type Severity Reaction Status Date / Time No Known Drug Allergies Allergy Verified 12/03/18 00:30 - Social History Does the pt smoke?: No Smoking Status: Never smoker Does the pt drink ETOH?: No Does the pt have substance abuse?: No - Immunizations Immunizations are current?: No Immunizations: TDAP >10years/unknown - POLST Patient has POLST: No PD ED PE EXPANDED - General General: Alert, No acute distress, Other (obese) - Cardiac Cardiac: Regular Rate, Radial strong equal, Pedal strong equal. No: Irregularly irregular, Murmur Present - Respiratory Respiratory: Clear to ausultation krupa. No: Distress, Labored - Abdomen Abdomen: Normal Bowel sounds. No: Tender to palpation - Back Back: Normal exam. No: Soft tissue tenderness - Derm Derm: Normal color, Warm and dry. No: Rash - Extremities Extremities: Tenderness, Right hip (Tenderness to palpation the proximal femur. Normal internal and external rotation without click. No malrotation. No leg shortening.), Pedal edema bilateral (Unchanged from baseline), Pedal Pulses Present - Neuro Neuro: Alert and Oriented X 3, CNII-XII intact, Normal speech, Dysarthria (very mild dysarthria of the right arm. No motor weakness noted). No: Nystagmus, Normal finger nose (Mild dysarthria noted with finger-nose on the right hand. He does have some mild entry operator strength weakness of the right hand comparatively to the left.) - GCS Eye Opening: Spontaneous Motor: Obeys Commands Verbal: Oriented Total: 15 Results - Vitals Vitals: Vital Signs - 24 hr 12/31/20 12/31/20 12/31/20 21:18 21:40 23:21 Temperature 36.6 C Heart Rate 79 71 68 Respiratory 16 19 20 Rate Blood Pressure 166/69 H 145/76 H 166/69 H O2 Saturation 97 92 98 01/01/21 01/01/21 01/01/21 02:03 06:17 09:33 Temperature 36.6 C 36.4 C L Heart Rate 68 82 82 Respiratory 18 22 16 Rate Blood Pressure 148/101 H 146/118 H 155/124 H O2 Saturation 99 94 94 Oxygen O2 Source Room air - EKG (time done) 2205 Rate: Rate (enter#) (71) Rhythm: NSR, Other (PAC's) Cherry: Anterior hemiblock Intervals: Prolonged MO, Prolonged QT Ischemia: Q waves Compare to prior EKG: Changed from prior EKG Computer interpretation: Agree with computer - Labs Labs: Laboratory Tests 12/31/20 12/31/20 12/31/20 21:41 21:41 21:41 WBC 8.7 RBC 4.22 L Hgb 14.0 Hct 42.4 MCV 100.5 H MCH 33.2 H MCHC 33.0 RDW 13.4 Plt Count 150 MPV 11.7 H Neut # (Auto) 5.5 Lymph # (Auto) 1.9 [place] # (Auto) 0.9 Eos # (Auto) 0.3 Baso # (Auto) 0.0 Absolute Nucleated RBC 0.00 Nucleated RBC % 0.0 PT 13.8 H INR 1.2 Sodium 138 Potassium 4.1 Chloride 101 Carbon Dioxide 29 Anion Gap 8.0 BUN 37 H Creatinine 1.6 H Estimated GFR (MDRD) 42 L Glucose 292 H Calcium 8.7 Total Bilirubin 0.8 AST 18 ALT 19 Alkaline Phosphatase 76 Total Protein 7.1 Albumin 3.3 Globulin 3.8 Albumin/Globulin Ratio 0.9 L Lipase 30 01/01/21 08:47 WBC RBC Hgb Hct MCV MCH MCHC RDW Plt Count MPV Neut # (Auto) Lymph # (Auto) [place] # (Auto) Eos # (Auto) Baso # (Auto) Absolute Nucleated RBC Nucleated RBC % PT INR Sodium 138 Potassium 4.2 Chloride 103 Carbon Dioxide 26 Anion Gap 9.0 BUN 28 H Creatinine 1.3 H Estimated GFR (MDRD) 53 L Glucose 257 H Calcium 8.6 Total Bilirubin AST ALT Alkaline Phosphatase Total Protein Albumin Globulin Albumin/Globulin Ratio Lipase - Rads (name of study) right hip xr Radiology: Final report received (Suspect nondisplaced subacute right acetabular fracture. Femur intact.) angio neck Radiology: Final report received (No significant stenosis aneurysm or lesions) angio head Radiology: Final report received (MICROBIAL SPECIALIST shunt in place. No significant aneurysms lesions or bleeding noted) CT right hip Radiology: Final report received (Possible posterior superior acetabular fracture. Questionable subacute) PD MEDICAL DECISION MAKING - ED course Complexity details: reviewed old records, reviewed results, re-evaluated patient, d/w patient ED course: 80-year-old male presents the emergency department for evaluation after fall yesterday evening in which he has Subsequently developed some mild dysarthria of the right arm but no motor weakness However the patient thinks this may have been developing over the last week. He has not lost consciousness with his falls. He walks with a walker and just reports that he gets off balance. However he denies if that he is having fainting episodes. There is no chest pain or shortness of air. On initial exam he does have very mild weakness noted of the right hand and a mild dysarthria as well. CT angio of the head and neck is pending though this gentleman is well outside the stroke/TPA window. Screening EKG does not show any acute deficits and there is no new murmur noted. 2044: X-ray of the right hip suggests a right acetabular fracture. I discussed this with Dr. Disla on-call for Ortho. He does recommend follow-up with a CT of the hip. If it is a nondisplaced acetabular fracture unfortunately this gentleman will need to be nonweightbearing for 4 to 6 weeks. 2300: Patient is signed out to my colleague Dr. Henning to follow-up on the CT angio head and neck results as well as the follow-up CT of the lower extremity to evaluate acetabular fracture. However this gentleman will likely need to remain in the emergency department for social work consult pending disposition 01/01/2021 1130M: CT of the hip has been reviewed and interpreted as suspected posterior and superior subacute right hip fracture. PT and OT consult is pending on this gentleman. I have instituted his daily medications that he would typically receive at home. Social work is continuing to evaluate for placement. The CT angios of his head and neck did not she was acute worrisome process. There is in place a MICROBIAL SPECIALIST shunt, for unclear etiology. 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 at this time, my suspicion that the falls are related to TIA is very low. he did present with some mild dysarthria of the right arm, but no motor weakness. Departure - Departure Clinical Impression: Falls frequently, History of diabetes mellitus, MICROBIAL SPECIALIST (ventriculoperitoneal) shunt status Closed right acetabular fracture Qualifiers: Encounter type: initial encounter Sublocation of acetabulum: unspecified portion of acetabulum Fracture alignment: nondisplaced Qualified Code(s): S32.401A - Unspecified fracture of right acetabulum, initial encounter for closed fracture
[2020-12-31 21:54] LABS: BASOPHILS % (AUTO) 0.5 %; EOSINOPHILS # (AUTO) 0.3 10^3/uL (0.0-0.7); EOSINOPHILS % (AUTO) 3.7 %; HCT - HEMATOCRIT 42.4 % (42.0-52.0); LYMPHOCYTES # (AUTO) 1.9 10^3/uL (1.5-3.5); LYMPHOCYTES % (AUTO) 21.2 %; MEAN CORPUSCULAR HEMOGLOBIN 33.2 pg (27.0-31.0); MEAN CORPUSCULAR VOLUME 100.5 fL (80.0-94.0); MEAN PLATELET VOLUME 11.7 fL (7.4-11.4); MONOCYTES # (AUTO) 0.9 10^3/uL (0.0-1.0); MONOCYTES % (AUTO) 10.4 %; NEUTROPHILS # (AUTO) 5.5 10^3/uL (1.5-6.6); NEUTROPHILS % (AUTO) 63.3 %; PLT - PLATELET COUNT 150 10^3/uL (130-450); RED BLOOD COUNT 4.22 10^6/uL (4.70-6.10); RED CELL DISTRIBUTION WIDTH 13.4 % (12.0-15.0); WHITE BLOOD COUNT 8.7 x10^3/uL (4.8-10.8)
[2020-12-31 22:01] LABS: INR 1.2 (0.8-1.2); PT - PROTHROMBIN TIME 13.8 secs (9.9-12.6)
[2020-12-31 22:08] LABS: ALBUMIN 3.3 g/dL (3.2-5.5); ALBUMIN/GLOBULIN RATIO 0.9 (1.0-2.2); BILIRUBIN,TOTAL 0.8 mg/dL (0.2-1.0); CALCIUM 8.7 mg/dL (8.5-10.3); CREATININE 1.6 mg/dL (0.6-1.2); POTASSIUM 4.1 mmol/L (3.5-5.0); TOTAL PROTEIN 7.1 g/dL (6.7-8.2)
[2020-12-31] MEDS ORDERED: IOPAMIDOL-300 100 ML VIAL IVP ONE (22:41)
[2020-12-31] MEDS ORDERED: SODIUM CHLORIDE 0.9% 1,000 ML IV STA (22:54)
--- NOTE | 2021-01-01 08:16 | XRAY Report ---
PROCEDURE: Hip w/Pelvis 2-3V RT INDICATIONS: pain after fall TECHNIQUE: AP pelvis with lateral view(s) of the bilateral hip(s). COMPARISON: None. FINDINGS: Bones: There is mild irregularity and bony offset involving the right superior acetabulum. Pelvic rin g appears intact. No suspicious bony lesions. Mild joint space narrowing and periarticular osteophy te formation bilaterally at the hip joints. Soft tissues: The visualized bowel gas pattern is normal. No suspicious soft tissue calcifications. IMPRESSION: Possible right acetabular fracture. Concordant with preliminary interpretation. Reviewed by: Nayeli Etienne MD on 01/01/2021 8:15 AM PDT Approved by: Nayeli Etienne MD on 01/01/2021 8:15 AM PDT Station ID: [id number]
--- NOTE | 2021-01-01 08:28 | CT Report ---
PROCEDURE: LOWER EXTREMITY WO - RT INDICATIONS: right acetabular fx; include hip and prox femur TECHNIQUE: Noncontrast 3 mm axial sections acquired of the right hip, with coronal and sagittal reformats. COMPARISON: None. FINDINGS: Image quality: Excellent. Bones: Extensive degenerative marginal spurring, subchondral sclerosis and cystic changes present at the right hip joint. Linear lucency involving the posterior acetabulum and posterior acetabular roof is noted, which could reflect fracture line although the CT appearance raises the possibility of chr onic or subacute age. This could be ununited marginal/rim osteophytes. Recommend clinical correlation . Elsewhere, no fracture identified. Cortical irregularity involving the superior acetabular roof, probably chronic/degenerative. The radi ographic appearance from the comparison study may correlate to non-corticated cyst image 104/5 on the current exam. Soft tissues: Extensive right hip soft tissue swelling/contusion. Possible small intramuscular hemat alexus and or trochanteric bursal fluid/blood. IMPRESSION: Possible posterior/superior acetabular fracture, although the CT appearance raises the possibility of chronic or subacute age. Please correlate clinically and as necessary, further evaluation with nonco ntrast MRI could be performed to assess for acute marrow edema. Right hip soft tissue edema/contusion. Additional chronic and incidental findings as detailed above. Findings are concordant with the prelim inary study interpretation provided at the time of the study. Reviewed by: Tommy Leo MD on 01/01/2021 8:26 AM PDT Approved by: Tommy Leo MD on 01/01/2021 8:26 AM PDT Station ID: [id number]
[2021-01-01] MEDS: INSULIN NPH HUMAN 100 UNIT/1 ML 10 ML MDV SUBQ SCH ×2 (08:46→22:10)
[2021-01-01] MEDS: carvediloL 3.125 MG TABLET PO SCH ×3 (08:46→22:23)
[2021-01-01] MEDS: POTASSIUM CHLORIDE 20 MEQ TABLET PO SCH (08:47)
[2021-01-01] MEDS ORDERED: allopurinoL 100 MG TABLET PO SCH ×2 (09:00→21:00)
[2021-01-01] MEDS ORDERED: FUROSEMIDE 20 MG TABLET PO SCH (09:00)
[2021-01-01] MEDS ORDERED: LEVOTHYROXINE 100 MCG TABLET PO SCH (09:00)
[2021-01-01 09:03] LABS: CALCIUM 8.6 mg/dL (8.5-10.3); CREATININE 1.3 mg/dL (0.6-1.2); POTASSIUM 4.2 mmol/L (3.5-5.0)
--- NOTE | 2021-01-01 13:04 | CT Report ---
PROCEDURE: ANGIO HEAD W/WO INDICATIONS: right sided weakness after fall CONTRAST: IV CONTRAST: Isovue 300 ml: 80 PO CONTRAST: *NO PO CONTRAST TECHNIQUE: Precontrast 4.5 mm thick angled axial sections acquired from the foramen magnum to the vertex. Afte r the administration of intravenous contrast, 1 mm thick sections acquired through the [place] of [place] is. Postcontrast 4.5 mm thick sections then re-acquired from the foramen magnum to the vertex. 3-di mensional dqlxvzs-enwqtlghb-bjbyhumjoo (MIP) and/or volume rendering reformats were acquired of the c entral intracranial vasculature. For radiation dose reduction, the following was used: automated ex posure control, adjustment of mA and/or kV according to patient size. COMPARISON: MRA neck 12/31/2020, MRI brain/MRA brain 16 FINDINGS: Image quality: Excellent. Anterior circulation: Intracranial internal carotid arteries are normal in size and flow. The flow within the paired anterior cerebral arteries is normal and symmetric. The flow within the middle cer ebral arteries is normal and symmetric. The anterior communicating artery is seen. No aneurysms are seen. Posterior circulation: Visualized portions of the vertebral arteries demonstrate normal caliber, and join to form a normal appearing basilar artery. Flow within the posterior cerebral arteries is norm al and symmetric. No aneurysms are seen. CSF spaces: Ventricles are normal in size and shape. Basal cisterns are patent. No extra-axial flu id collections. WINDOWS APPLICATION DEVELOPER shunt right side approach is present, across the midline in the foramen. Brain: No midline shift. No intracranial bleeds or masses. [place]-white matter interface appears int act. Skull and face: Calvarium and facial bones appear intact, without suspicious lesions. Sinuses: Visualized sinuses and mastoids are clear. IMPRESSION: 1. No acute intracranial process. 2. Moderate atrophy and chronic microvascular ischemic changes. 3. No areas of hemodynamically significant stenosis, vascular occlusion or aneurysmal dilation within the anterior or posterior circulation. The above findings are concordant with preliminary report. Reviewed by: Brenda Pike MD on 01/01/2021 1:03 PM PDT Approved by: Brenda Pike MD on 01/01/2021 1:03 PM PDT Station ID: [id number]
--- NOTE | 2021-01-01 13:24 | ED Physician Documentation ---
ED Addendum - Addendum Addendum: 01/01/21 13:22 Pt has remained in the ED overnight. Seen by SW. CT confirms right acetabular fracture, which is a NWB fx for 4-6 weeks. Pt was also seen by PT. Formal note pending. However she indicated that pt would benefit from SNF/rehab placement given right sided weakness and NWB status. This was relayed to SW who will start calling for placement. pt remains clinically stable. Alert, oriented. his has been updated to status and plan.
--- NOTE | 2021-01-01 13:50 | CT Report ---
PROCEDURE: ANGIO NECK W INDICATIONS: L sided facial droop, L neck pain CONTRAST: IV CONTRAST: Isovue 300 ml: 80 PO CONTRAST: *NO PO CONTRAST TECHNIQUE: After the administration of intravenous contrast, 1.5 mm axial sections acquired from the aortic arch to the [place] of [place]. Coronal 3-D maximum intensity projection (MIP) and/or volume rendering ref ormats were then performed. For radiation dose reduction, the following was used: automated exposur e control, adjustment of mA and/or kV according to patient size. COMPARISON: CTA head 12/31/2020 FINDINGS: Image quality: Excellent. The origins of the left and right common, right internal and bilateral external carotid arteries demo nstrate no areas of hemodynamically significant stenosis, vascular occlusion or aneurysmal dilation. There is approximate 40% narrowing of the origin of the left internal artery. Origin of the left vert ebral artery and right vertebral artery demonstrate no areas of hemodynamically significant stenosis, vascular occlusion or aneurysmal dilation. Aortic arch demonstrates conventional anatomy. Limited, v isualized portions of the subclavian vasculature are unremarkable. Right-sided shunt is present dista l tip crossing the midline at the foramen. IMPRESSION: 1. Approximately 40% narrowing of the origin of the left internal carotid artery. The estimate of stenosis included in the report of the imaging study was calculated using the NASCET method The above findings are concordant with preliminary report. Reviewed by: Brenda Pike MD on 01/01/2021 1:48 PM PDT Approved by: Brenda Pike MD on 01/01/2021 1:48 PM PDT Station ID: [id number]
[2021-01-01 16:41] LABS: CORONAVIRUS 229E-RESP PCR NOT DETECTED; CORONAVIRUS HKU1-RESP PCR NOT DETECTED; CORONAVIRUS NL63-RESP PCR NOT DETECTED; CORONAVIRUS OC43-RESP PCR NOT DETECTED
[2021-01-01 16:42] LABS: B. PARAPERTUSSIS- RESP PCR PAN NOT DETECTED; B. PERTUSSIS- RESP PCR PANEL NOT DETECTED; C. PNEUMONIAE- RESP PCR PANEL NOT DETECTED; HUMAN METAPNEUMOVIRUS NOT DETECTED; INFLUENZA A- RESP PCR PANEL NOT DETECTED; INFLUENZA B - RESP PCR PANEL NOT DETECTED; M. PNEUMONIAE- RESP PCR PANEL NOT DETECTED; PARAINFLUENZA VIRUS 1 NOT DETECTED; PARAINFLUENZA VIRUS 2 NOT DETECTED; PARAINFLUENZA VIRUS 3 NOT DETECTED; PARAINFLUENZA VIRUS 4 NOT DETECTED; RHINOVIRUS/ENTEROVIRUS NOT DETECTED; RSV- RESP PCR PANEL NOT DETECTED; SARS-CoV-2 -RESP PCR PANEL DETECTED
--- NOTE | 2021-01-01 17:21 | XRAY Report ---
PROCEDURE: Chest 1 View X-Ray INDICATIONS: C+ TECHNIQUE: One view of the chest was acquired. COMPARISON: 12/23/2020, 05/13/2018, 11/01/2017 FINDINGS: Surgical changes and devices: Right sided FAMILY PSYCHOLOGIST shunt catheter tubing is seen. Lungs and pleura: No pleural effusions or pneumothorax. Low lung volumes can be seen, causing a farmworker field crop wded appearance to the lung markings. Patchy bilateral interstitial type infiltrates are seen. Mediastinum: Mediastinal contours appear normal. Heart size is normal. Bones and chest wall: No suspicious bony lesions. Age-appropriate degenerative changes are seen. Overlying soft tissues appear unremarkable. IMPRESSION: Bilateral interstitial type infiltrates are seen, which appear slightly improved compared to 12/23/2020 . Please consider COVID pneumonia. Postoperative and degenerative changes are seen. Reviewed by: Marco Tucker MD on 01/01/2021 4:20 PM AKKAILEE Approved by: Marco Tucker MD on 01/01/2021 4:20 PM AKDT Station ID: [id number]
--- NOTE | 2021-01-01 17:32 | ED Physician Documentation ---
ED Addendum - Addendum Addendum: 01/01/21 17:31 Patient has returned positive for COVID-19 after PCR was sent to aid in finding placement. Chest x-ray does show bilateral interstitial infiltrates which are improved compared to 23 December. He is asymptomatic for COVID-19 from a respiratory standpoint. He is not hypoxic or tachypneic. This gentleman is fully vaccinated for COVID-19. However we will prescribe Mab therapy here in the emergency department. I have requested a social admit for this patient as it is likely he will board for prolonged period of time while we look for correction facility rehab care and the emergency department is not an appropriate place for COVID-19 patients to board [facility] 01/01/21 20:15
[2021-01-01] MEDS ORDERED: CASIRIVIMAB/IMDEVIMAB 10 ML in SODIUM CHLORIDE 0.9% 50 ML IV ONE (18:00)
[2021-01-01] MEDS ORDERED: HYDROcod/ACETAM 5/325 MG TABLET PO PRN (19:42)
[2021-01-01] MEDS ORDERED: MORPHINE 2 MG/ML CARPUJECT IVP PRN (19:42)
[2021-01-01] MEDS ORDERED: ONDANSETRON 4 MG/2 ML VIAL IVP PRN (19:42)
[2021-01-01] MEDS ORDERED: SODIUM CHLORIDE FLUSH 0.9% 10 ML SYRINGE IVP PRN (19:42)
--- NOTE | 2021-01-01 19:56 | HISTORY & PHYSICAL EXAMINATION ---
History and Physical - History and Physical Chief complaint: Mechanical fall and right hip pain History of present illness: The patient is an 80-year-old white male with past medical history of dyslipidemia, hypothyroidism, diabetes, hypertension and history of TIAs. He has a NETWORK CONTRACT MANAGER shunt in place, likely has history of hydrocephalus. He suffers frequent falls due to impaired balance. As baseline, he ambulates with a walker. He lives in his own home with his . He was in his usual state of health on the afternoon of December 31, he was using a walker and bent forward to feed his cat. He lost his balance, fell on his back on the right side and subsequently developed right-sided lower extremity and hip pain, therefore presented to the ER for evaluation. He denied any recent change in his health such as fever, chest pain, shortness of breath, abdominal pain or focal neurological abnormalities. He stated it was a clearly mechanical fall, there was no loss of consciousness. The patient presented to the ER on the afternoon of December 31, he had an extended ER stay over 20 hours. He was initially dehydrated and received IV fluids, was found with hyperglycemia which improved during the ER stay. He complained of right lower extremity and hip pain therefore underwent x-ray and CT scan of the right hip which showed a subacute acetabular fracture. He received consultation from orthopedic surgeon Dr. Disla,And was felt not being a surgical candidate however nonweightbearing status was recommended for 4 to [address]. [address] scan of the brain which showed no acute abnormality however a NETWORK CONTRACT MANAGER shunt in place.CT angiography of head and neck showed left ICA narrowing at about 40%.Chest x-ray showed bilateral infiltrates improving from previous x-ray taken on December 23. Covid test was positive. Patient however did not require supplemental oxygen, did not have respiratory complaints, saturated in the mid 90s on room air. Notably the patient was vaccinated for Covid. Patient was hemodynamically stable during the ER stay, although his blood pre ssure was elevated. Patient did not meet inpatient criteria as most of his conditions were chronic/subacute, however he was not dischargeable from the ER due to multiple medical problems, advanced age, and ambulatory dysfunction getting worse with nonoperative acetabular fracture. Patient was evaluated by social work and physical therapy, and the conclusion was that the patient would require retirement facility placement. Past medical history: Dyslipidemia Hypertension Insulin-dependent diabetes History of TIAs Frequent falls Hydrocephalus/status post NETWORK CONTRACT MANAGER shunt Home medications Medication Instructions Recorded Confirmed Aspirin 325 mg PO DAILY 09/09/16 12/31/20 Furosemide [Lasix] 40 mg PO DAILY 09/09/16 12/31/20 Insulin NPH Hum/Reg Insulin Hm 28 - 50 unit SQ BIDWM 09/09/16 12/31/20 [Humulin 70/30 Kwikpen] Levothyroxine Sodium 100 mcg PO QDBREAKFAST 09/09/16 12/31/20 Lovastatin 20 mg PO QPM 09/09/16 12/31/20 [place]-3/Dha/Epa/Fish Oil [[place] 3 1 each PO DAILY 09/09/16 12/31/20 500 Softgel] Potassium Chloride 20 meq PO DAILY 09/09/16 12/31/20 Pregabalin [Lyrica] 675 mg PO DAILY 09/09/16 12/31/20 Carvedilol 1 tab PO BID 12/03/18 12/31/20 Gabapentin 3 cap PO QPM 12/03/18 12/31/20 Telmisartan 80 mg PO QID 12/31/20 12/31/20 allopurinoL [Zyloprim] 200 mg PO QID 12/31/20 12/31/20 Family history: Patient cannot recall chronic medical conditions in first-degree relatives. Social history and functional status: Patient lives in his own home with his , he ambulates with a walker, he does not smoke, he has memory impairment and physical impairment due to chronic medical problems. He suffers frequent falls at least twice per month. Advanced directive/CODE STATUS: Patient states that he would not want to receive cardiopulmonary resuscitation in case of emergency. He understands the topic being discussed and states that he would prefer to pass naturally. Thereby his CODE STATUS is DO NOT RESUSCITATE DO NOT INTUBATE. Review of symptoms: 12 point review done, pertinent positives and negatives listed above at history present illness, there was no additional positive. Laboratory Tests 12/31/20 12/31/20 12/31/20 21:41 21:41 21:41 WBC 8.7 RBC 4.22 L Hgb 14.0 Hct 42.4 MCV 100.5 H MCH 33.2 H MCHC 33.0 RDW 13.4 Plt Count 150 MPV 11.7 H Neut # (Auto) 5.5 Lymph # (Auto) 1.9 Mayes # (Auto) 0.9 Eos # (Auto) 0.3 Baso # (Auto) 0.0 Absolute Nucleated RBC 0.00 Nucleated RBC % 0.0 PT 13.8 H INR 1.2 Sodium 138 Potassium 4.1 Chloride 101 Carbon Dioxide 29 Anion Gap 8.0 BUN 37 H Creatinine 1.6 H Estimated GFR (MDRD) 42 L Glucose 292 H POC Whole Bld Glucose Estimat Average Glucose Hemoglobin A1c % Calcium 8.7 Total Bilirubin 0.8 AST 18 ALT 19 Alkaline Phosphatase 76 Ammonia Total Protein 7.1 Albumin 3.3 Globulin 3.8 Albumin/Globulin Ratio 0.9 L Lipase 30 Nasal Adenovirus (PCR) Nasal B. parapertussis DNA (PCR) Nasal Coronavir 229E PCR Nasal Coronavir HKU1 PCR Nasal Coronavir NL63 PCR Nasal Coronavir OC43 PCR Nasal Enterovir/Rhinovir PCR Nasal Influenza B PCR Nasal Influenza A PCR Nasal Parainfluen 1 PCR Nasal Parainfluen 2 PCR Nasal Parainfluen 3 PCR Nasal Parainfluen 4 PCR Nasal RSV (PCR) Nasal B.pertussis DNA PCR Nasal C.pneumoniae (PCR) Justino Human Metapneumo PCR Nasal M.pneumoniae (PCR) Nasal SARS-CoV-2 (PCR) 01/01/21 01/01/21 01/01/21 08:47 12:12 15:39 WBC RBC Hgb Hct MCV MCH MCHC RDW Plt Count MPV Neut # (Auto) Lymph # (Auto) Mayes # (Auto) Eos # (Auto) Baso # (Auto) Absolute Nucleated RBC Nucleated RBC % PT INR Sodium 138 Potassium 4.2 Chloride 103 Carbon Dioxide 26 Anion Gap 9.0 BUN 28 H Creatinine 1.3 H Estimated GFR (MDRD) 53 L Glucose 257 H POC Whole Bld Glucose 250 H Estimat Average Glucose Hemoglobin A1c % Calcium 8.6 Total Bilirubin AST ALT Alkaline Phosphatase Ammonia Total Protein Albumin Globulin Albumin/Globulin Ratio Lipase Nasal Adenovirus (PCR) NOT DETECTED Nasal B. parapertussis DNA (PCR) NOT DETECTED Nasal Coronavir 229E PCR NOT DETECTED Nasal Coronavir HKU1 PCR NOT DETECTED Nasal Coronavir NL63 PCR NOT DETECTED Nasal Coronavir OC43 PCR NOT DETECTED Nasal Enterovir/Rhinovir PCR NOT DETECTED Nasal Influenza B PCR NOT DETECTED Nasal Influenza A PCR NOT DETECTED Nasal Parainfluen 1 PCR NOT DETECTED Nasal Parainfluen 2 PCR NOT DETECTED Nasal Parainfluen 3 PCR NOT DETECTED Nasal Parainfluen 4 PCR NOT DETECTED Nasal RSV (PCR) NOT DETECTED Nasal B.pertussis DNA PCR NOT DETECTED Nasal C.pneumoniae (PCR) NOT DETECTED Justino Human Metapneumo PCR NOT DETECTED Nasal M.pneumoniae (PCR) NOT DETECTED Nasal SARS-CoV-2 (PCR) DETECTED A 01/01/21 01/01/21 19:47 19:47 WBC RBC Hgb Hct MCV MCH MCHC RDW Plt Count MPV Neut # (Auto) Lymph # (Auto) [place]es # (Auto) Eos # (Auto) Baso # (Auto) Absolute Nucleated RBC Nucleated RBC % PT INR Sodium Potassium Chloride Carbon Dioxide Anion Gap BUN Creatinine Estimated GFR (MDRD) Glucose POC Whole Bld Glucose Estimat Average Glucose 206 H Hemoglobin A1c % 8.8 H Calcium Total Bilirubin AST ALT Alkaline Phosphatase Ammonia 17.0 Total Protein Albumin Globulin Albumin/Globulin Ratio Lipase Nasal Adenovirus (PCR) Nasal B. parapertussis DNA (PCR) Nasal Coronavir 229E PCR Nasal Coronavir HKU1 PCR Nasal Coronavir NL63 PCR Nasal Coronavir OC43 PCR Nasal Enterovir/Rhinovir PCR Nasal Influenza B PCR Nasal Influenza A PCR Nasal Parainfluen 1 PCR Nasal Parainfluen 2 PCR Nasal Parainfluen 3 PCR Nasal Parainfluen 4 PCR Nasal RSV (PCR) Nasal B.pertussis DNA PCR Nasal C.pneumoniae (PCR) Justino Human Metapneumo PCR Nasal M.pneumoniae (PCR) Nasal SARS-CoV-2 (PCR) Imaging reviewed per electronic medical record including CT scan of the brain, CT angiography, chest x-ray. EKG showed sinus rhythm, no acute ischemic sign. Physical exam: General: The patient is a well-developed elderly male who answers questions appropriately. Not in distress. Respiratory: No increased work of breathing, clear to auscultation bilaterally without wheezes or crackles. CVS: S1, S2, regular with soft systolic murmur. Abdomen: distended, obese, nontender, normal bowel tones. Neurologic: Alert, oriented, appears forgetful but answers straightforward questions appropriately, without focal lateralizing sign. Psych: Cooperative. Lymph: Signs of chronic venous stasis of the lower extremities with minimal pitting pedal edema. Skin: small abrasions and wounds on the toes, dry skin, no jaundice no pallor. Musculoskeltal: With right hip tenderness. Assessment and plan: Active issues/diagnoses Ambulatory dysfunction and self-care deficit/multifactorial, secondary to subacute acetabular fracture and Covid positive respiratory illnesssuperimposed on chronic medical problems such as hydrocephalus, TIAs/uncontrolled diabetes and hypertension. Right hip contusion/acetabular fracture/subacute COVID-19 related acute respiratory illness with lung infiltrates Acute kidney injury secondary to diuretics including Lasix and telmisartan Hyperglycemia/uncontrolled insulin-dependent diabetes Uncontrolled hypertension could be situational secondary to pain and discomfort Small wounds on toes/feet Frequent falls Plan and orders: Considering the patient's prolonged ER stay and resource management decisions patient will be admitted as extended outpatient stay status/outpatient observation. The patient meets criteria for observation due to acute worsening of ambulatory dysfunction and self-care deficit secondary to dehydration/acute kidney injury, uncontrolled blood glucose, uncontrolled hypertension, Covid related respiratory illness and subacute right acetabular fracture. Social work consult and PT evaluation and treatment Activity orders and further instructions per orthopedic surgeon Reconcile and restart home medications as appropriate Hold diuretics due to dehydration, restart on the second hospital day/based on volume status assessment Continue Coreg, add additional antihypertensive as needed Monoclonal antibody for Covid, monitor respiratory status and vital signs Insulin sliding scale, diabetic diet, restart long-acting insulin and adjust as needed per blood glucose measurement Skin care, wound care DO NOT RESUSCITATE CODE STATUS Disposition: To nursing facility/rehab per social work and PT evaluation/plan Attestation: I certify that the patient meets observation criteria based on the above findings, assessment and plan. Patient is expected to discharge within 48 hour s.
[2021-01-01 20:46] LABS: ESTIMATED AVERAGE GLUCOSE 206 mg/dL (70-100); HEMOGLOBIN A1c% 8.8 % (4.27-6.07)
[2021-01-01] MEDS ORDERED: GABAPENTIN 300 MG CAPSULE PO SCH (21:00)
[2021-01-01] MEDS ORDERED: GABAPENTIN 100 MG CAPSULE PO SCH (21:00)
[2021-01-01] MEDS ORDERED: LABETALOL 100 MG TABLET PO PRN (21:46)
[2021-01-01] MEDS: ATORVASTATIN 10 MG TABLET PO SCH (22:23)
[2021-01-01] MEDS: INSULIN ASPART 300 UNIT/3 ML PEN SUBQ SCH (22:23)
[2021-01-01] MEDS: HEPARIN 5,000 UNIT/ML VIAL SUBQ SCH (22:24)
[2021-01-02] MEDS: ACETAMINOPHEN 325 MG TABLET PO PRN ×2 (01:31→07:07)
[2021-01-02] MEDS: SODIUM CHLORIDE FLUSH 0.9% 10 ML SYRINGE IVP SCH ×3 (01:31→17:14)
[2021-01-02 02:01] LABS: BILIRUBIN,URINE NEGATIVE (NEGATIVE); GLUCOSE, URINE (UA) >=1000 mg/dL (NEGATIVE); KETONES,URINE (UA) NEGATIVE (NEGATIVE); LEUKOCYTE ESTERASE, URINE NEGATIVE (NEGATIVE); NITRITE,URINE NEGATIVE (NEGATIVE); OCCULT BLOOD,URINE TRACE-LYSE (NEGATIVE); PROTEIN,URINE NEGATIVE (NEGATIVE); UROBILINOGEN,URINE 0.2 (NORMAL) E.U./dL (NORMAL)
[2021-01-02 02:02] LABS: CLARITY,URINE CLEAR (CLEAR)
[2021-01-02 02:07] LABS: BACTERIA,URINE None Seen /HPF (None Seen); RBC,URINE 0-5 /HPF (0-5); SQUAMOUS EPITHELIAL CELL,UR NONE SEEN (<= Few); WBC,URINE 0-3 /HPF (0-3)
[2021-01-02] MEDS: LEVOTHYROXINE 100 MCG TABLET PO SCH (07:06)
[2021-01-02] MEDS ORDERED: LEVOTHYROXINE 100 MCG TABLET PO SCH (08:00)
--- NOTE | 2021-01-02 08:19 | PHARMACY PROGRESS NOTE ---
- Best Possible Medication History Admit Date and Time: 01/01/211941 Processed by: Pharmacy Medication History completed: Yes Patient Interview: Pt unable to participate Secondary Source(s): Physician records, Pharmacy records, Insurance records As the person ultimately responsible for medication therapy, providers are able to order a medication from an existing home medication list in [facility] via the "Reconcile Routine" prior to Confirmation of that medication by desktop support specialist. Such practice is discouraged except when the physician, in their clinical judgment, deems that a medical need exists for a medication without regard to previous use.
[2021-01-02] MEDS: HEPARIN 5,000 UNIT/ML VIAL SUBQ SCH ×2 (08:26→21:14)
[2021-01-02] MEDS: ASPIRIN 325 MG TABLET PO SCH (08:30)
[2021-01-02] MEDS: POTASSIUM CHLORIDE 20 MEQ TABLET PO SCH (08:30)
[2021-01-02] MEDS: carvediloL 3.125 MG TABLET PO SCH ×2 (08:30→21:14)
[2021-01-02] MEDS: INSULIN ASPART 300 UNIT/3 ML PEN SUBQ SCH ×4 (08:31→20:48)
[2021-01-02] MEDS ORDERED: PREGABALIN 100 MG CAPSULE PO SCH (09:00)
[2021-01-02] MEDS ORDERED: PREGABALIN 25 MG CAPSULE PO SCH (09:00)
[2021-01-02] MEDS: INSULIN 70/30 HUMAN 300 UNIT/3 ML VIAL SUBQ SCH ×2 (09:27→17:13)
[2021-01-02] MEDS: allopurinoL 100 MG TABLET PO SCH (14:07)
[2021-01-02] MEDS ORDERED: MORPHINE 2 MG/ML CARPUJECT IVP PRN (16:40)
--- NOTE | 2021-01-02 17:57 | PROVIDER PROGRESS NOTE ---
Assessment/Plan - Problem List (1) Obtundation Assessment/Plan: He is sleepy, snoring, appears comfortable, only moves slightly to sternal rub. Earlier today, he was awake, dangled at edge of bed, per his RN. Will decrease and spread out the narcotic order, which has likely caused this somnolence. (2) Falls frequently Assessment/Plan: As per Hx. He also has a FRUIT OR NUT PICKER shunt (and poss NPH), and may still have some ataxia therefore, which may have added to reason for falls at home. He has BANDAR by labs, may be orthostatic too. He cannot start PT today, due to over sedation. Planning: PT, orthostatic checks, adjust meds to prevent somnolence, placement in a SNF for PT rehab, pain control of fractured hip. (3) Closed right acetabular fracture Qualifiers: Encounter type: subsequent encounter Sublocation of acetabulum: unspecified portion of acetabulum Fracture alignment: nondisplaced Assessment/Plan: Right hip contusion/acetabular fracture/subacute and Ortho wants non-weight bearing and currently no surgery is indicated Ortho will follow with weekly imaging to see if the area needs surgery Continue pain meds, narcotics spread out to avoid over sedation (4) COVID-19 Assessment/Plan: No resp or GI sx Continue infectious isolation (5) HTN (hypertension) Assessment/Plan: As per Hx Continue home BP meds when list reconciled (6) BANDAR (acute kidney injury) Assessment/Plan: Will give gentle hydration Avoid nephrotoxins Follow BMP (7) DM (diabetes mellitus) Assessment/Plan: Ordering cc diet, ss Insulin while here (8) FRUIT OR NUT PICKER (ventriculoperitoneal) shunt status Assessment/Plan: As per Hx - Current Meds Current Meds: Current Medications Generic Name Dose Route Start Last Admin Trade Name Freq PRN Reason Stop Dose Admin Acetaminophen 650 mg 01/01/21 19:42 01/02/21 07:07 Acetaminophen 325 Mg Tablet PO 650 mg Q4HR PRN Administration Pain 1 to 4 Allopurinol 200 mg 01/02/21 14:00 01/02/21 14:07 Allopurinol 100 Mg Tablet PO Not Given DAILY FAITH Aspirin 325 mg 01/02/21 09:00 01/02/21 08:30 Aspirin 325 Mg Tablet PO 325 mg DAILY FAITH Administration Atorvastatin Calcium 10 mg 01/01/21 21:00 01/01/21 22:23 Atorvastatin 10 Mg Tablet PO 10 mg QPM FAITH Administration Carvedilol 6.25 mg 01/01/21 21:00 01/02/21 08:30 Carvedilol 3.125 Mg Tablet PO 6.25 mg BID FAITH Administration Heparin Sodium (Porcine) 5,000 unit 01/01/21 21:00 01/02/21 08:26 Heparin 5,000 Unit/Ml Vial SUBQ 5,000 unit BID FAITH Administration Insulin Aspart 1 - 9 unit 01/02/21 12:00 01/02/21 17:11 Insulin Aspart 300 Unit/3 Ml Pen SUBQ 1 unit 0800,1200,1700,2100 FAITH Administration Protocol Insulin Human Isoph/Insulin Regular 35 unit 01/02/21 08:00 01/02/21 17:13 Insulin 70/30 Human 300 Unit/3 Ml Vial SUBQ 35 unit BIDWM FAITH Administration Levothyroxine Sodium 100 mcg 01/02/21 07:00 01/02/21 07:06 Levothyroxine 100 Mcg Tablet PO 100 mcg QDAC FAITH Administration Sodium Chloride 10 ml 01/02/21 01:00 01/02/21 17:14 Sodium Chloride Flush 0.9% 10 Ml Syringe IVP 10 ml 0100,0900,1700 FAITH Administration - Lab Result Fish Bone Diagrams: 01/03/21 11:20 01/07/21 05:56 - Additional Planning My Orders: My Active Orders 01/02/21 Evaluate and Treat PT [PT] Routine 01/02/21 12:00 Insulin Aspart [NovoLOG] 1 - 9 unit SUBQ 0800,1200,1700,2100 01/02/21 16:40 Gabapentin [Neurontin] 900 mg PO QPM Morphine Inj (Carpuject) [Morphine (Carpuject)] 2 mg IVP Q8HR PRN 01/02/21 16:41 Pregabalin [Lyrica] 75 mg PO DAILY Subjective - Subjective Patient Reports: Pain (R hip) Objective Vital Signs: Vital Signs - 24 hr 01/01/21 01/01/21 01/02/21 20:04 21:08 00:20 Temperature 36.7 C 36.8 C 36.5 C Heart Rate 76 Heart Rate [ 80 Brachial] Heart Rate [ 77 Monitoring electrodes] Respiratory 16 16 18 Rate Blood Pressure 187/92 H Blood Pressure 136/86 H [Left Brachial artery] Blood Pressure 160/110 H [Right Brachial artery] O2 Saturation 94 94 92 01/02/21 01/02/21 01/02/21 07:49 11:13 16:00 Temperature 36.5 C 36.7 C 36.4 C L Heart Rate Heart Rate [ 60 53 L Brachial] Heart Rate [ Monitoring electrodes] Respiratory 16 20 16 Rate Blood Pressure Blood Pressure [Left Brachial artery] Blood Pressure 175/90 H 140/73 H 149/83 H [Right Brachial artery] O2 Saturation 92 94 94 Oxygen O2 Source Room air I&O (Last 24 Hrs): Intake and Output Totals x24h 12/31/20 01/01/21 01/02/21 23:59 23:59 23:59 Intake Total 1850 760 Output Total 1225 650 Balance 625 110 General: Other (Obtunded, respirations unlabored) HEENT: Mucous membr. moist/pink Neck: Other (Sleeping and cannot assess) Neuro: Alert, Non Focal Cardiovascular: Regular rate Respiratory: No respiratory distress Abdomen: Soft Extremities: No edema, Other (R hip tender) - Results Results: Laboratory Results WBC 8.7 x10^3/uL (4.8-10.8) 12/31/20 21:41 RBC 4.22 10^6/uL (4.70-6.10) L 12/31/20 21:41 Hgb 14.0 g/dL (14.0-18.0) 12/31/20 21:41 Hct 42.4 % (42.0-52.0) 12/31/20 21:41 MCV 100.5 fL (80.0-94.0) H 12/31/20 21:41 MCH 33.2 pg (27.0-31.0) H 12/31/20 21:41 MCHC 33.0 g/dL (32.0-36.0) 12/31/20 21:41 RDW 13.4 % (12.0-15.0) 12/31/20 21:41 Plt Count 150 10^3/uL (130-450) 12/31/20 21:41 MPV 11.7 fL (7.4-11.4) H 12/31/20 21:41 Neut # (Auto) 5.5 10^3/uL (1.5-6.6) 12/31/20 21:41 Lymph # (Auto) 1.9 10^3/uL (1.5-3.5) 12/31/20 21:41 [place] # (Auto) 0.9 10^3/uL (0.0-1.0) 12/31/20 21:41 Eos # (Auto) 0.3 10^3/uL (0.0-0.7) 12/31/20 21:41 Baso # (Auto) 0.0 10^3/uL (0.0-0.1) 12/31/20 21:41 Absolute Nucleated RBC 0.00 x10^3/uL 12/31/20 21:41 Nucleated RBC % 0.0 /100WBC 12/31/20 21:41 PT 13.8 secs (9.9-12.6) H 12/31/20 21:41 INR 1.2 (0.8-1.2) 12/31/20 21:41 Sodium 138 mmol/L (135-145) 01/01/21 08:47 Potassium 4.2 mmol/L (3.5-5.0) 01/01/21 08:47 Chloride 103 mmol/L (101-111) 01/01/21 08:47 Carbon Dioxide 26 mmol/L (21-32) 01/01/21 08:47 Anion Gap 9.0 (6-13) 01/01/21 08:47 BUN 28 mg/dL (6-20) H 01/01/21 08:47 Creatinine 1.3 mg/dL (0.6-1.2) H 01/01/21 08:47 Estimated GFR (MDRD) 53 (>89) L 01/01/21 08:47 Glucose 257 mg/dL (70-100) H 01/01/21 08:47 POC Whole Bld Glucose 161 mg/dL (70 - 100) H 01/02/21 16:39 Estimat Average Glucose 206 mg/dL (70-100) H 01/01/21 19:47 Hemoglobin A1c % 8.8 % (4.27-6.07) H 01/01/21 19:47 Calcium 8.6 mg/dL (8.5-10.3) 01/01/21 08:47 Total Bilirubin 0.8 mg/dL (0.2-1.0) 12/31/20 21:41 AST 18 IU/L (10-42) 12/31/20 21:41 ALT 19 IU/L (10-60) 12/31/20 21:41 Alkaline Phosphatase 76 IU/L (42-121) 12/31/20 21:41 Ammonia 17.0 umol/L (7-35) 01/01/21 19:47 Total Protein 7.1 g/dL (6.7-8.2) 12/31/20 21:41 Albumin 3.3 g/dL (3.2-5.5) 12/31/20 21:41 Globulin 3.8 g/dL (2.1-4.2) 12/31/20 21:41 Albumin/Globulin Ratio 0.9 (1.0-2.2) L 12/31/20 21:41 Lipase 30 U/L (22-51) 12/31/20 21:41 TSH 3.22 uIU/mL (0.34-5.60) 01/01/21 19:47 Urine Color YELLOW 01/02/21 01:25 Urine Clarity CLEAR (CLEAR) 01/02/21 01:25 Urine pH 6.0 PH (5.0-7.5) 01/02/21 01:25 Ur Specific [place] 1.015 (1.002-1.030) 01/02/21 01:25 Urine Protein NEGATIVE mg/dL (NEGATIVE) 01/02/21 01:25 Urine Glucose (UA) >=1000 mg/dL (NEGATIVE) H 01/02/21 01:25 Urine Ketones NEGATIVE mg/dL (NEGATIVE) 01/02/21 01:25 Urine Occult Blood TRACE-LYSE (NEGATIVE) 01/02/21 01:25 Urine Nitrite NEGATIVE (NEGATIVE) 01/02/21 01:25 Urine Bilirubin NEGATIVE (NEGATIVE) 01/02/21 01:25 Urine Urobilinogen 0.2 (NORMAL) E.U./dL (NORMAL) 01/02/21 01:25 Ur Leukocyte Esterase NEGATIVE (NEGATIVE) 01/02/21 01:25 Urine RBC 0-5 /HPF (0-5) 01/02/21 01:25 Urine WBC 0-3 /HPF (0-3) 01/02/21 01:25 Ur Squamous Epith Cells NONE SEEN (<= Few) 01/02/21 01:25 Urine Bacteria None Seen /HPF (None Seen) 01/02/21 01:25 Urine Culture Comments NOT INDICATED 01/02/21 01:25 Nasal Adenovirus (PCR) NOT DETECTED 01/01/21 15:39 Nasal B. parapertussis DNA (PCR) NOT DETECTED 01/01/21 15:39 Nasal Coronavir 229E PCR NOT DETECTED 01/01/21 15:39 Nasal Coronavir HKU1 PCR NOT DETECTED 01/01/21 15:39 Nasal Coronavir NL63 PCR NOT DETECTED 01/01/21 15:39 Nasal Coronavir OC43 PCR NOT DETECTED 01/01/21 15:39 Nasal Enterovir/Rhinovir PCR NOT DETECTED 01/01/21 15:39 Nasal Influenza B PCR NOT DETECTED 01/01/21 15:39 Nasal Influenza A PCR NOT DETECTED 01/01/21 15:39 Nasal Parainfluen 1 PCR NOT DETECTED 01/01/21 15:39 Nasal Parainfluen 2 PCR NOT DETECTED 01/01/21 15:39 Nasal Parainfluen 3 PCR NOT DETECTED 01/01/21 15:39 Nasal Parainfluen 4 PCR NOT DETECTED 01/01/21 15:39 Nasal RSV (PCR) NOT DETECTED 01/01/21 15:39 Nasal B.pertussis DNA PCR NOT DETECTED 01/01/21 15:39 Nasal C.pneumoniae (PCR) NOT DETECTED 01/01/21 15:39 Justino Human Metapneumo PCR NOT DETECTED 01/01/21 15:39 Nasal M.pneumoniae (PCR) NOT DETECTED 01/01/21 15:39 Nasal SARS-CoV-2 (PCR) DETECTED A 01/01/21 15:39
[2021-01-02] MEDS: ATORVASTATIN 10 MG TABLET PO SCH (21:14)
[2021-01-02] MEDS: GABAPENTIN 300 MG CAPSULE PO SCH (21:14)
[2021-01-03] MEDS: ACETAMINOPHEN 325 MG TABLET PO PRN ×2 (00:28→06:47)
[2021-01-03] MEDS: SODIUM CHLORIDE FLUSH 0.9% 10 ML SYRINGE IVP SCH ×3 (00:32→16:58)
[2021-01-03] MEDS: LEVOTHYROXINE 100 MCG TABLET PO SCH (06:47)
[2021-01-03] MEDS: carvediloL 3.125 MG TABLET PO SCH ×2 (08:53→21:10)
[2021-01-03] MEDS: HEPARIN 5,000 UNIT/ML VIAL SUBQ SCH ×2 (09:12→21:10)
[2021-01-03] MEDS: ASPIRIN 325 MG TABLET PO SCH (09:17)
[2021-01-03] MEDS: allopurinoL 100 MG TABLET PO SCH (09:17)
[2021-01-03] MEDS: PREGABALIN 25 MG CAPSULE PO SCH (09:17)
[2021-01-03] MEDS: INSULIN ASPART 300 UNIT/3 ML PEN SUBQ SCH ×4 (09:18→21:11)
[2021-01-03] MEDS: INSULIN 70/30 HUMAN 300 UNIT/3 ML VIAL SUBQ SCH ×2 (09:18→16:57)
[2021-01-03 11:32] LABS: BASOPHILS # (AUTO) 0.1 10^3/uL (0.0-0.1); BASOPHILS % (AUTO) 0.6 %; EOSINOPHILS # (AUTO) 0.5 10^3/uL (0.0-0.7); EOSINOPHILS % (AUTO) 5.9 %; HCT - HEMATOCRIT 44.6 % (42.0-52.0); HGB - HEMOGLOBIN 14.5 g/dL (14.0-18.0); LYMPHOCYTES # (AUTO) 1.6 10^3/uL (1.5-3.5); LYMPHOCYTES % (AUTO) 19.1 %; MEAN CORPUSCULAR HGB CONC 32.5 g/dL (32.0-36.0); MEAN CORPUSCULAR VOLUME 101.6 fL (80.0-94.0); MEAN PLATELET VOLUME 11.6 fL (7.4-11.4); MONOCYTES # (AUTO) 0.7 10^3/uL (0.0-1.0); MONOCYTES % (AUTO) 8.8 %; NEUTROPHILS # (AUTO) 5.4 10^3/uL (1.5-6.6); NEUTROPHILS % (AUTO) 64.5 %; PLT - PLATELET COUNT 155 10^3/uL (130-450); RED BLOOD COUNT 4.39 10^6/uL (4.70-6.10); RED CELL DISTRIBUTION WIDTH 13.4 % (12.0-15.0); WHITE BLOOD COUNT 8.3 x10^3/uL (4.8-10.8)
[2021-01-03 11:39] LABS: CALCIUM 8.5 mg/dL (8.5-10.3); CREATININE 1.3 mg/dL (0.6-1.2); POTASSIUM 4.3 mmol/L (3.5-5.0)
[2021-01-03] MEDS: polyethylene glycoL 3350 17 GM PACKET PO SCH (11:56)
--- NOTE | 2021-01-03 14:48 | CONSULTATION NOTE ---
Referring Provider Name of Referring Provider:: Aguila Consult Date: 01/03/21 Chief Complaint - Chief Complaint Chief Complaint: Superior right acetabular fracture History of Present Illness - Admitted From Admitted From:: ED - History Obtained From History obtained from: Patient - History of Present Illness HPI Comment/Other: This is an 80-year-old male with a history including Second choice for pain COVID + diabetes, hypertension, TIAs [employer] shunts and multipple mechanical falls Receiving an orthopedic consultation for a right posterior superior acetabular fracture after a fall. Patient ambulates with a front wheeled walker at baseline, he is currently nonweightbearing. Patient's pain is well controlled with Tylenol. History - Past Medical History Cardiovascular: reports: Hypertension, High cholesterol Endocrine/Autoimmune: reports: Type 2 diabetes, HyPOthyroidism : reports: Nocturia, Frequency Psych: reports: Anxiety Musculoskeletal: reports: Osteoarthritis, Chronic back pain, Other MRSA Hx?: No - POLST Patient has POLST: No Meds/Allgy - Home Medications Home Medications: Ambulatory Orders Medication Instructions Recorded Confirmed Aspirin 325 mg PO DAILY 09/09/16 12/31/20 Furosemide [Lasix] 80 mg PO DAILY 09/09/16 01/02/21 Insulin NPH Hum/Reg Insulin Hm 50 unit SQ BIDWM 09/09/16 01/02/21 [Humulin 70/30 Kwikpen] Levothyroxine Sodium 100 mcg PO QDBREAKFAST 09/09/16 12/31/20 Lovastatin 20 mg PO QPM 09/09/16 12/31/20 [place]-3/Dha/Epa/Fish Oil [[place] 3 1 each PO DAILY 09/09/16 12/31/20 500 Softgel] Potassium Chloride 40 meq PO DAILYWM 09/09/16 01/02/21 Pregabalin [Lyrica] 675 mg PO DAILY 09/09/16 12/31/20 Carvedilol 6.25 mg PO BID 12/03/18 01/02/21 Gabapentin 900 mg PO QPM 12/03/18 01/02/21 Telmisartan 80 mg PO DAILY 12/31/20 01/02/21 allopurinoL [Zyloprim] 200 mg PO DAILY 12/31/20 01/02/21 Montelukast [Singulair] 10 mg PO QPM 01/02/21 01/02/21 - Allergies Allergies/Adverse Reactions: Allergies Allergy/AdvReac Type Severity Reaction Status Date / Time No Known Drug Allergies Allergy Verified 12/03/18 00:30 Review of Systems - Musculoskeletal Musculoskeletal: reports: Limited range of motion, Joint pain, Joint swelling Exam - Vital Signs Vital Signs: Vital Signs x48h Temp Pulse Resp BP Pulse Ox 01/03/21 11:16 36.4 C L 65 20 124/72 94 01/03/21 07:58 36.4 C L 55 L 20 120/75 94 - Physical Exam General Appearance: positive: No acute distress Respiratory: positive: No respiratory distress Skin: positive: Color nml, No rash, Warm, Dry Extremities: positive: No pedal edema. negative: Joint swelling (Right hip nontender to palpitation patient has limited range of motion but can move foot ankle and knee and raise the hip off the bed.) Neurologic/Psychiatric: positive: Oriented x3 Conclusion and Plan - Lab Results Laboratory Results 01/03/21 11:20: Sodium 135, Potassium 4.3, Chloride 100 L, Carbon Dioxide 27, Anion Gap 8.0, BUN 30 H, Creatinine 1.3 H, Estimated GFR (MDRD) 53 L, Glucose 307 H, Calcium 8.5 01/03/21 11:20: WBC 8.3, RBC 4.39 L, Hgb 14.5, Hct 44.6, MCV 101.6 H, MCH 33.0 H, MCHC 32.5, RDW 13.4, Plt Count 155, MPV 11.6 H, Neut # (Auto) 5.4, Lymph # (Auto) 1.6, [place] # (Auto) 0.7, Eos # (Auto) 0.5, Baso # (Auto) 0.1, Absolute Nucleated RBC 0.00, Nucleated RBC % 0.0 01/03/21 11:13: POC Whole Bld Glucose 312 H 01/03/21 07:54: POC Whole Bld Glucose 142 H 01/02/21 20:25: POC Whole Bld Glucose 101 H 01/02/21 16:39: POC Whole Bld Glucose 161 H 01/02/21 11:08: POC Whole Bld Glucose 342 H 01/02/21 07:45: POC Whole Bld Glucose 267 H 01/02/21 01:25: Urine Color YELLOW, Urine Clarity CLEAR, Urine pH 6.0, Ur Specific [place] 1.015, Urine Protein NEGATIVE, Urine Glucose (UA) >=1000 H, Urine Ketones NEGATIVE, Urine Occult Blood TRACE-LYSE, Urine Nitrite NEGATIVE, Urine Bilirubin NEGATIVE, Urine Urobilinogen 0.2 (NORMAL), Ur Leukocyte Esterase NEGATIVE, Urine RBC 0-5, Urine WBC 0-3, Ur Squamous Epith Cells NONE SEEN, Urine Bacteria None Seen, Urine Culture Comments NOT INDICATED 01/01/21 21:21: POC Whole Bld Glucose 292 H 01/01/21 19:47: TSH 3.22 01/01/21 19:47: Estimat Average Glucose 206 H, Hemoglobin A1c % 8.8 H 01/01/21 19:47: Ammonia 17.0 01/01/21 15:39: Nasal Adenovirus (PCR) NOT DETECTED, Nasal B. parapertussis DNA (PCR) NOT DETECTED, Nasal Coronavir 229E PCR NOT DETECTED, Nasal Coronavir HKU1 PCR NOT DETECTED, Nasal Coronavir NL63 PCR NOT DETECTED, Nasal Coronavir OC43 PCR NOT DETECTED, Nasal Enterovir/Rhinovir PCR NOT DETECTED, Nasal Influenza B PCR NOT DETECTED, Nasal Influenza A PCR NOT DETECTED, Nasal Parainfluen 1 PCR NOT DETECTED, Nasal Parainfluen 2 PCR NOT DETECTED, Nasal Parainfluen 3 PCR NOT DETECTED, Nasal Parainfluen 4 PCR NOT DETECTED, Nasal RSV (PCR) NOT DETECTED, Nasal B.pertussis DNA PCR NOT DETECTED, Nasal C.pneumoniae (PCR) NOT DETECTED, Justino Human Metapneumo PCR NOT DETECTED, Nasal M.pneumoniae (PCR) NOT DETECTED, Nasal SARS-CoV-2 (PCR) DETECTED A - Diagnostic Imaging Results Diagnostic Imaging Results: positive: Read independently Diagnostic Imaging Results Comments: CT of the right hip taken on 01/01/2021 shows a posterior superior acetabular fracture although CT appearance raises the possibility of a chronic or subacute fracture.Associated right hip soft tissue edema seen.No other dislocations or acute findings. - Diagnosis Diagnosis: Right posterior/superior acetabular fracture age-indeterminate. - Consultation Note Consultation Note: Patient is an 80-year-old male with a history of diabetes, hypertension, TIAs, [employer] shunt, multiple mechanical falls and is currently Covid positive being seen for an orthopedic consultation for posterior/superior right acetabular fracture. CT results make fracture age-indeterminate could be subacute. Patient has mild pain did have a recent fall, we will upgrade his weightbearing status to toe-touch weightbearing with a front wheeled walker and 1 assist when available. We will do weekly, serial x-rays of the pelvis and right hip to ensure fracture remains stable. Patient can follow-up in our outpatient clinic when he gets discharged from the hospital in 1 week time. Patient can continue taking Tylenol for pain. - Plan Plan: Toe-touch weightbearing in front wheeled walker. Serial weekly x-rays of pelvis to monitor fracture stability. Tylenol for pain. Rest right hip and leg.
--- NOTE | 2021-01-03 18:47 | PROVIDER PROGRESS NOTE ---
Assessment/Plan - Problem List (1) Falls frequently Assessment/Plan: He has had 5 falls in last 1 mo Will order orthostatic VS checks. Continue gentle hydration. Begin working with PT Placement for PT rehab during his hip fracture healing, is being work on by [facility]. Difficult to find a facility that will take a COVID (+) patient, per [facility]. His memory is also poor. Consider OT eval. (2) Closed right acetabular fracture Qualifiers: Encounter type: subsequent encounter Sublocation of acetabulum: unspecified portion of acetabulum Fracture alignment: nondisplaced Assessment/Plan: He does not need surg , per Dr Disla. Ortho will order weekly imaging to see if he does need surgery. Continue with pain control. The narcotics prn order was spread out, because he was over sedated on Day #2 here. (3) COVID-19 Assessment/Plan: No sx No indication for Remdesivir or Decadron iv. Continue with infectious Isolation (4) HTN (hypertension) Assessment/Plan: Continue with home meds as appropriate. His BP will also be lower from getting narcotics. (5) BANDAR (acute kidney injury) Assessment/Plan: Improving with gentle hydration (6) DM (diabetes mellitus) Assessment/Plan: Continue with cc diet and ss Insulin (7) TUBE ROOM C[employer]IER (ventriculoperitoneal) shunt status Assessment/Plan: As per Hx (8) Obtundation Assessment/Plan: Resolved with decreasing and spreading out the narcotic doses - Current Meds Current Meds: Current Medications Generic Name Dose Route Start Last Admin Trade Name Freq PRN Reason Stop Dose Admin Acetaminophen 650 mg 01/01/21 19:42 01/03/21 06:47 Acetaminophen 325 Mg Tablet PO 650 mg Q4HR PRN Administration Pain 1 to 4 Allopurinol 200 mg 01/02/21 14:00 01/03/21 09:17 Allopurinol 100 Mg Tablet PO 200 mg DAILY FAITH Administration Aspirin 325 mg 01/02/21 09:00 01/03/21 09:17 Aspirin 325 Mg Tablet PO 325 mg DAILY FAITH Administration Atorvastatin Calcium 10 mg 01/01/21 21:00 01/02/21 21:14 Atorvastatin 10 Mg Tablet PO 10 mg QPM FAITH Administration Carvedilol 6.25 mg 01/03/21 09:00 01/03/21 08:53 Carvedilol 3.125 Mg Tablet PO Not Given BID FAITH Gabapentin 900 mg 01/02/21 16:40 01/02/21 21:14 Gabapentin 300 Mg Capsule PO 900 mg QPM FAITH Administration Heparin Sodium (Porcine) 5,000 unit 01/01/21 21:00 01/03/21 09:12 Heparin 5,000 Unit/Ml Vial SUBQ Not Given BID FAITH Insulin Aspart 1 - 9 unit 01/02/21 12:00 01/03/21 16:57 Insulin Aspart 300 Unit/3 Ml Pen SUBQ 3 unit 0800,1200,1700,2100 FAITH Administration Protocol Insulin Human Isoph/Insulin Regular 35 unit 01/02/21 08:00 01/03/21 16:57 Insulin 70/30 Human 300 Unit/3 Ml Vial SUBQ 35 unit BIDWM FAITH Administration Levothyroxine Sodium 100 mcg 01/02/21 07:00 01/03/21 06:47 Levothyroxine 100 Mcg Tablet PO 100 mcg QDAC FAITH Administration Polyethylene Glycol 17 gm 01/03/21 11:00 01/03/21 11:56 Polyethylene Glycol 3350 17 Gm Packet PO 17 gm DAILY FAITH Administration Pregabalin 75 mg 01/02/21 16:41 01/03/21 09:17 Pregabalin 25 Mg Capsule PO 75 mg DAILY FAITH Administration Sodium Chloride 10 ml 01/02/21 01:00 01/03/21 16:58 Sodium Chloride Flush 0.9% 10 Ml Syringe IVP 10 ml 0100,0900,1700 FAITH Administration - Lab Result Fish Bone Diagrams: 01/03/21 11:20 01/07/21 05:56 - Additional Planning My Orders: My Active Orders 01/03/21 09:00 carvediloL [Coreg] 6.25 mg PO BID 01/03/21 11:00 polyethylene glycoL 3350 [Miralax] 17 gm PO DAILY Subjective - Subjective Patient Reports: Resting Comfortably (when at rest. No dyspnea and minimal cough, per his RN) Objective Vital Signs: Vital Signs - 24 hr 01/02/21 01/03/21 01/03/21 20:00 00:35 06:04 Temperature 36.4 C L 36.3 C L 36.2 C L Heart Rate [ 58 L 56 L 54 L Brachial] Respiratory 16 20 18 Rate Blood Pressure 145/96 H [Left Brachial artery] Blood Pressure 129/63 165/84 H [Right Brachial artery] O2 Saturation 94 93 94 01/03/21 01/03/21 01/03/21 06:46 07:58 11:16 Temperature 36.4 C L 36.4 C L Heart Rate [ 60 55 L 65 Brachial] Respiratory 20 20 Rate Blood Pressure [Left Brachial artery] Blood Pressure 128/80 120/75 124/72 [Right Brachial artery] O2 Saturation 94 94 01/03/21 16:00 Temperature 36.8 C Heart Rate [ 73 Brachial] Respiratory 20 Rate Blood Pressure [Left Brachial artery] Blood Pressure 128/72 [Right Brachial artery] O2 Saturation 94 Oxygen O2 Source Room air I&O (Last 24 Hrs): Intake and Output Totals x24h 01/01/21 01/02/21 01/03/21 23:59 23:59 23:59 Intake Total 1850 1210 1360 Output Total 1225 850 300 Balance 269 957 8597 General: Alert HEENT: Mucous membr. moist/pink Neck: Supple Neuro: Alert, Non Focal Cardiovascular: Regular rate Respiratory: No respiratory distress Abdomen: Soft Extremities: Other (Tender R hip) - Results Results: Laboratory Results WBC 8.3 x10^3/uL (4.8-10.8) 01/03/21 11:20 RBC 4.39 10^6/uL (4.70-6.10) L 01/03/21 11:20 Hgb 14.5 g/dL (14.0-18.0) 01/03/21 11:20 Hct 44.6 % (42.0-52.0) 01/03/21 11:20 MCV 101.6 fL (80.0-94.0) H 01/03/21 11:20 MCH 33.0 pg (27.0-31.0) H 01/03/21 11:20 MCHC 32.5 g/dL (32.0-36.0) 01/03/21 11:20 RDW 13.4 % (12.0-15.0) 01/03/21 11:20 Plt Count 155 10^3/uL (130-450) 01/03/21 11:20 MPV 11.6 fL (7.4-11.4) H 01/03/21 11:20 Neut # (Auto) 5.4 10^3/uL (1.5-6.6) 01/03/21 11:20 Lymph # (Auto) 1.6 10^3/uL (1.5-3.5) 01/03/21 11:20 [place] # (Auto) 0.7 10^3/uL (0.0-1.0) 01/03/21 11:20 Eos # (Auto) 0.5 10^3/uL (0.0-0.7) 01/03/21 11:20 Baso # (Auto) 0.1 10^3/uL (0.0-0.1) 01/03/21 11:20 Absolute Nucleated RBC 0.00 x10^3/uL 01/03/21 11:20 Nucleated RBC % 0.0 /100WBC 01/03/21 11:20 PT 13.8 secs (9.9-12.6) H 12/31/20 21:41 INR 1.2 (0.8-1.2) 12/31/20 21:41 Sodium 135 mmol/L (135-145) 01/03/21 11:20 Potassium 4.3 mmol/L (3.5-5.0) 01/03/21 11:20 Chloride 100 mmol/L (101-111) L 01/03/21 11:20 Carbon Dioxide 27 mmol/L (21-32) 01/03/21 11:20 Anion Gap 8.0 (6-13) 01/03/21 11:20 BUN 30 mg/dL (6-20) H 01/03/21 11:20 Creatinine 1.3 mg/dL (0.6-1.2) H 01/03/21 11:20 Estimated GFR (MDRD) 53 (>89) L 01/03/21 11:20 Glucose 307 mg/dL (70-100) H 01/03/21 11:20 POC Whole Bld Glucose 186 mg/dL (70 - 100) H 01/03/21 16:38 Estimat Average Glucose 206 mg/dL (70-100) H 01/01/21 19:47 Hemoglobin A1c % 8.8 % (4.27-6.07) H 01/01/21 19:47 Calcium 8.5 mg/dL (8.5-10.3) 01/03/21 11:20 Total Bilirubin 0.8 mg/dL (0.2-1.0) 12/31/20 21:41 AST 18 IU/L (10-42) 12/31/20 21:41 ALT 19 IU/L (10-60) 12/31/20 21:41 Alkaline Phosphatase 76 IU/L (42-121) 12/31/20 21:41 Ammonia 17.0 umol/L (7-35) 01/01/21 19:47 Total Protein 7.1 g/dL (6.7-8.2) 12/31/20 21:41 Albumin 3.3 g/dL (3.2-5.5) 12/31/20 21:41 Globulin 3.8 g/dL (2.1-4.2) 12/31/20 21:41 Albumin/Globulin Ratio 0.9 (1.0-2.2) L 12/31/20 21:41 Lipase 30 U/L (22-51) 12/31/20 21:41 TSH 3.22 uIU/mL (0.34-5.60) 01/01/21 19:47 Urine Color YELLOW 01/02/21 01:25 Urine Clarity CLEAR (CLEAR) 01/02/21 01:25 Urine pH 6.0 PH (5.0-7.5) 01/02/21 01:25 Ur Specific [place] 1.015 (1.002-1.030) 01/02/21 01:25 Urine Protein NEGATIVE mg/dL (NEGATIVE) 01/02/21 01:25 Urine Glucose (UA) >=1000 mg/dL (NEGATIVE) H 01/02/21 01:25 Urine Ketones NEGATIVE mg/dL (NEGATIVE) 01/02/21 01:25 Urine Occult Blood TRACE-LYSE (NEGATIVE) 01/02/21 01:25 Urine Nitrite NEGATIVE (NEGATIVE) 01/02/21 01:25 Urine Bilirubin NEGATIVE (NEGATIVE) 01/02/21 01:25 Urine Urobilinogen 0.2 (NORMAL) E.U./dL (NORMAL) 01/02/21 01:25 Ur Leukocyte Esterase NEGATIVE (NEGATIVE) 01/02/21 01:25 Urine RBC 0-5 /HPF (0-5) 01/02/21 01:25 Urine WBC 0-3 /HPF (0-3) 01/02/21 01:25 Ur Squamous Epith Cells NONE SEEN (<= Few) 01/02/21 01:25 Urine Bacteria None Seen /HPF (None Seen) 01/02/21 01:25 Urine Culture Comments NOT INDICATED 01/02/21 01:25 Nasal Adenovirus (PCR) NOT DETECTED 01/01/21 15:39 Nasal B. parapertussis DNA (PCR) NOT DETECTED 01/01/21 15:39 Nasal Coronavir 229E PCR NOT DETECTED 01/01/21 15:39 Nasal Coronavir HKU1 PCR NOT DETECTED 01/01/21 15:39 Nasal Coronavir NL63 PCR NOT DETECTED 01/01/21 15:39 Nasal Coronavir OC43 PCR NOT DETECTED 01/01/21 15:39 Nasal Enterovir/Rhinovir PCR NOT DETECTED 01/01/21 15:39 Nasal Influenza B PCR NOT DETECTED 01/01/21 15:39 Nasal Influenza A PCR NOT DETECTED 01/01/21 15:39 Nasal Parainfluen 1 PCR NOT DETECTED 01/01/21 15:39 Nasal Parainfluen 2 PCR NOT DETECTED 01/01/21 15:39 Nasal Parainfluen 3 PCR NOT DETECTED 01/01/21 15:39 Nasal Parainfluen 4 PCR NOT DETECTED 01/01/21 15:39 Nasal RSV (PCR) NOT DETECTED 01/01/21 15:39 Nasal B.pertussis DNA PCR NOT DETECTED 01/01/21 15:39 Nasal C.pneumoniae (PCR) NOT DETECTED 01/01/21 15:39 [place] Human Metapneumo PCR NOT DETECTED 01/01/21 15:39 Nasal M.pneumoniae (PCR) NOT DETECTED 01/01/21 15:39 Nasal SARS-CoV-2 (PCR) DETECTED A 01/01/21 15:39
[2021-01-03] MEDS: ATORVASTATIN 10 MG TABLET PO SCH (21:10)
[2021-01-03] MEDS: GABAPENTIN 300 MG CAPSULE PO SCH (21:10)
[2021-01-04] MEDS: ACETAMINOPHEN 325 MG TABLET PO PRN ×4 (01:39→21:01)
[2021-01-04] MEDS: SODIUM CHLORIDE FLUSH 0.9% 10 ML SYRINGE IVP SCH ×4 (01:42→23:30)
[2021-01-04] MEDS: LEVOTHYROXINE 100 MCG TABLET PO SCH (06:36)
[2021-01-04] MEDS: INSULIN ASPART 300 UNIT/3 ML PEN SUBQ SCH ×4 (08:27→21:03)
[2021-01-04] MEDS: INSULIN 70/30 HUMAN 300 UNIT/3 ML VIAL SUBQ SCH ×2 (08:29→17:28)
[2021-01-04] MEDS: allopurinoL 100 MG TABLET PO SCH (08:34)
[2021-01-04] MEDS: carvediloL 3.125 MG TABLET PO SCH ×2 (08:34→21:01)
[2021-01-04] MEDS: polyethylene glycoL 3350 17 GM PACKET PO SCH (08:35)
[2021-01-04] MEDS: PREGABALIN 25 MG CAPSULE PO SCH (08:35)
[2021-01-04] MEDS: ASPIRIN 325 MG TABLET PO SCH (08:35)
[2021-01-04] MEDS: HEPARIN 5,000 UNIT/ML VIAL SUBQ SCH ×2 (08:51→21:01)
--- NOTE | 2021-01-04 20:47 | PROVIDER PROGRESS NOTE ---
Assessment/Plan - Problem List (1) Falls frequently Assessment/Plan: This was the reason that brought him to the ED and new right hip pain. We are checking orthostatic vital signs to see if there is a reason for these falls. PT is starting evaluation to see if there is a gait abnormality. The PT evaluation is difficult because he is only toe-touch on the side where he has the hip fracture. He needs placement for PT rehab and then long-term nursing care probably (2) Closed right acetabular fracture Qualifiers: Encounter type: subsequent encounter Sublocation of acetabulum: unspecified portion of acetabulum Fracture alignment: nondisplaced Assessment/Plan: He has fairly good pain control and is able to start working with PT. Orthopedics is following along on consult and recommendations are for once a week x-rays of that hip which they will order to see if he does indeed need surgical repair if it moves more out of place. Toe-touch only weight-bearing is recommended (3) COVID-19 Assessment/Plan: He has no GI or respiratory symptoms. Droplet isolation continues. There is difficulty to find him a SNF that except for Covid positive patient (4) HTN (hypertension) Assessment/Plan: BP is stable on his current meds and management (5) BANDAR (acute kidney injury) Assessment/Plan: Abnormally elevated BUN/creatinine but stable during this hospitalization. Avoid nephrotoxins. Follow BMP daily (6) DM (diabetes mellitus) Assessment/Plan: Continue with CC diet, insulin coverage. (7) SILK SPREADER (ventriculoperitoneal) shunt status Assessment/Plan: This is per history that he eventually remembered after the admission brain imaging revealed the SILK SPREADER shunt (8) Obtundation Assessment/Plan: After admission, he received narcotics for pain control and was somnolent almost the following 24 hours. His narcotics have been spread out and dose is lowered - Current Meds Current Meds: Current Medications Generic Name Dose Route Start Last Admin Trade Name Freq PRN Reason Stop Dose Admin Acetaminophen 650 mg 01/01/21 19:42 01/04/21 17:28 Acetaminophen 325 Mg Tablet PO 650 mg Q4HR PRN Administration Pain 1 to 4 Allopurinol 200 mg 01/02/21 14:00 01/04/21 08:34 Allopurinol 100 Mg Tablet PO 200 mg DAILY FAITH Administration Aspirin 325 mg 01/02/21 09:00 01/04/21 08:35 Aspirin 325 Mg Tablet PO 325 mg DAILY FAITH Administration Atorvastatin Calcium 10 mg 01/01/21 21:00 01/03/21 21:10 Atorvastatin 10 Mg Tablet PO 10 mg QPM FAITH Administration Carvedilol 6.25 mg 01/03/21 09:00 01/04/21 08:34 Carvedilol 3.125 Mg Tablet PO 6.25 mg BID FAITH Administration Gabapentin 900 mg 01/02/21 16:40 01/03/21 21:10 Gabapentin 300 Mg Capsule PO 900 mg QPM FAITH Administration Heparin Sodium (Porcine) 5,000 unit 01/01/21 21:00 01/04/21 08:51 Heparin 5,000 Unit/Ml Vial SUBQ 5,000 unit BID FAITH Administration Insulin Aspart 1 - 9 unit 01/02/21 12:00 01/04/21 17:29 Insulin Aspart 300 Unit/3 Ml Pen SUBQ 5 unit 0800,1200,1700,2100 [facility] Administration Protocol Insulin Human Isoph/Insulin Regular 35 unit 01/02/21 08:00 01/04/21 17:28 Insulin 70/30 Human 300 Unit/3 Ml Vial SUBQ 35 unit BIDWM FAITH Administration Levothyroxine Sodium 100 mcg 01/02/21 07:00 01/04/21 06:36 Levothyroxine 100 Mcg Tablet PO 100 mcg QDAC FAITH Administration Polyethylene Glycol 17 gm 01/03/21 11:00 01/04/21 08:35 Polyethylene Glycol 3350 17 Gm Packet PO Not Given DAILY FAITH Pregabalin 75 mg 01/02/21 16:41 01/04/21 08:35 Pregabalin 25 Mg Capsule PO 75 mg DAILY FAITH Administration Sodium Chloride 10 ml 01/02/21 01:00 01/04/21 17:29 Sodium Chloride Flush 0.9% 10 Ml Syringe IVP 10 ml 0100,0900,1700 [facility] Administration - Lab Result Fish Bone Diagrams: 01/03/21 11:20 01/03/21 11:20 - Additional Planning My Orders: My Active Orders 01/04/21 21:00 Insulin Aspart [NovoLOG] 2 - 10 unit SUBQ 0800,1200,1700,2100 Subjective - Subjective Patient Reports: No Complaints Nursing Reports: Other (He is confused, needs alot of reminders.) Objective Vital Signs: Vital Signs - 24 hr 01/04/21 01/04/21 01/04/21 01:35 05:45 08:09 Temperature 36.5 C 36.4 C L 36.3 C L Heart Rate [ 68 60 61 Brachial] Respiratory 20 20 18 Rate Blood Pressure 142/71 H 135/64 H 143/74 H [Right Brachial artery] O2 Saturation 92 93 95 01/04/21 01/04/21 11:32 16:00 Temperature 36.3 C L 36.6 C Heart Rate [ 62 67 Brachial] Respiratory 18 18 Rate Blood Pressure 147/74 H 127/64 [Right Brachial artery] O2 Saturation 92 95 Oxygen O2 Source Room air I&O (Last 24 Hrs): Intake and Output Totals x24h 01/02/21 01/03/21 01/04/21 23:59 23:59 23:59 Intake Total 1210 1510 1440 Output Total 850 300 525 Balance 360 1210 915 General: Alert HEENT: Mucous membr. moist/pink Neck: Supple Neuro: Alert, Disoriented, Non Focal Cardiovascular: Regular rate Respiratory: No respiratory distress Abdomen: Soft Extremities: No edema - Results Results: Laboratory Results WBC 8.3 x10^3/uL (4.8-10.8) 01/03/21 11:20 RBC 4.39 10^6/uL (4.70-6.10) L 01/03/21 11:20 Hgb 14.5 g/dL (14.0-18.0) 01/03/21 11:20 Hct 44.6 % (42.0-52.0) 01/03/21 11:20 MCV 101.6 fL (80.0-94.0) H 01/03/21 11:20 MCH 33.0 pg (27.0-31.0) H 01/03/21 11:20 MCHC 32.5 g/dL (32.0-36.0) 01/03/21 11:20 RDW 13.4 % (12.0-15.0) 01/03/21 11:20 Plt Count 155 10^3/uL (130-450) 01/03/21 11:20 MPV 11.6 fL (7.4-11.4) H 01/03/21 11:20 Neut # (Auto) 5.4 10^3/uL (1.5-6.6) 01/03/21 11:20 Lymph # (Auto) 1.6 10^3/uL (1.5-3.5) 01/03/21 11:20 [place] # (Auto) 0.7 10^3/uL (0.0-1.0) 01/03/21 11:20 Eos # (Auto) 0.5 10^3/uL (0.0-0.7) 01/03/21 11:20 Baso # (Auto) 0.1 10^3/uL (0.0-0.1) 01/03/21 11:20 Absolute Nucleated RBC 0.00 x10^3/uL 01/03/21 11:20 Nucleated RBC % 0.0 /100WBC 01/03/21 11:20 PT 13.8 secs (9.9-12.6) H 12/31/20 21:41 INR 1.2 (0.8-1.2) 12/31/20 21:41 Sodium 135 mmol/L (135-145) 01/03/21 11:20 Potassium 4.3 mmol/L (3.5-5.0) 01/03/21 11:20 Chloride 100 mmol/L (101-111) L 01/03/21 11:20 Carbon Dioxide 27 mmol/L (21-32) 01/03/21 11:20 Anion Gap 8.0 (6-13) 01/03/21 11:20 BUN 30 mg/dL (6-20) H 01/03/21 11:20 Creatinine 1.3 mg/dL (0.6-1.2) H 01/03/21 11:20 Estimated GFR (MDRD) 53 (>89) L 01/03/21 11:20 Glucose 307 mg/dL (70-100) H 01/03/21 11:20 POC Whole Bld Glucose 238 mg/dL (70 - 100) H 01/04/21 16:47 Estimat Average Glucose 206 mg/dL (70-100) H 01/01/21 19:47 Hemoglobin A1c % 8.8 % (4.27-6.07) H 01/01/21 19:47 Calcium 8.5 mg/dL (8.5-10.3) 01/03/21 11:20 Total Bilirubin 0.8 mg/dL (0.2-1.0) 12/31/20 21:41 AST 18 IU/L (10-42) 12/31/20 21:41 ALT 19 IU/L (10-60) 12/31/20 21:41 Alkaline Phosphatase 76 IU/L (42-121) 12/31/20 21:41 Ammonia 17.0 umol/L (7-35) 01/01/21 19:47 Total Protein 7.1 g/dL (6.7-8.2) 12/31/20 21:41 Albumin 3.3 g/dL (3.2-5.5) 12/31/20 21:41 Globulin 3.8 g/dL (2.1-4.2) 12/31/20 21:41 Albumin/Globulin Ratio 0.9 (1.0-2.2) L 12/31/20 21:41 Lipase 30 U/L (22-51) 12/31/20 21:41 TSH 3.22 uIU/mL (0.34-5.60) 01/01/21 19:47 Urine Color YELLOW 01/02/21 01:25 Urine Clarity CLEAR (CLEAR) 01/02/21 01:25 Urine pH 6.0 PH (5.0-7.5) 01/02/21 01:25 Ur Specific [place] 1.015 (1.002-1.030) 01/02/21 01:25 Urine Protein NEGATIVE mg/dL (NEGATIVE) 01/02/21 01:25 Urine Glucose (UA) >=1000 mg/dL (NEGATIVE) H 01/02/21 01:25 Urine Ketones NEGATIVE mg/dL (NEGATIVE) 01/02/21 01:25 Urine Occult Blood TRACE-LYSE (NEGATIVE) 01/02/21 01:25 Urine Nitrite NEGATIVE (NEGATIVE) 01/02/21 01:25 Urine Bilirubin NEGATIVE (NEGATIVE) 01/02/21 01:25 Urine Urobilinogen 0.2 (NORMAL) E.U./dL (NORMAL) 01/02/21 01:25 Ur Leukocyte Esterase NEGATIVE (NEGATIVE) 01/02/21 01:25 Urine RBC 0-5 /HPF (0-5) 01/02/21 01:25 Urine WBC 0-3 /HPF (0-3) 01/02/21 01:25 Ur Squamous Epith Cells NONE SEEN (<= Few) 01/02/21 01:25 Urine Bacteria None Seen /HPF (None Seen) 01/02/21 01:25 Urine Culture Comments NOT INDICATED 01/02/21 01:25 Nasal Adenovirus (PCR) NOT DETECTED 01/01/21 15:39 Nasal B. parapertussis DNA (PCR) NOT DETECTED 01/01/21 15:39 Nasal Coronavir 229E PCR NOT DETECTED 01/01/21 15:39 Nasal Coronavir HKU1 PCR NOT DETECTED 01/01/21 15:39 Nasal Coronavir NL63 PCR NOT DETECTED 01/01/21 15:39 Nasal Coronavir OC43 PCR NOT DETECTED 01/01/21 15:39 Nasal Enterovir/Rhinovir PCR NOT DETECTED 01/01/21 15:39 Nasal Influenza B PCR NOT DETECTED 01/01/21 15:39 Nasal Influenza A PCR NOT DETECTED 01/01/21 15:39 Nasal Parainfluen 1 PCR NOT DETECTED 01/01/21 15:39 Nasal Parainfluen 2 PCR NOT DETECTED 01/01/21 15:39 Nasal Parainfluen 3 PCR NOT DETECTED 01/01/21 15:39 Nasal Parainfluen 4 PCR NOT DETECTED 01/01/21 15:39 Nasal RSV (PCR) NOT DETECTED 01/01/21 15:39 Nasal B.pertussis DNA PCR NOT DETECTED 01/01/21 15:39 Nasal C.pneumoniae (PCR) NOT DETECTED 01/01/21 15:39 Justino Human Metapneumo PCR NOT DETECTED 01/01/21 15:39 Nasal M.pneumoniae (PCR) NOT DETECTED 01/01/21 15:39 Nasal SARS-CoV-2 (PCR) DETECTED A 01/01/21 15:39
[2021-01-04] MEDS: GABAPENTIN 300 MG CAPSULE PO SCH (21:00)
[2021-01-04] MEDS: ATORVASTATIN 10 MG TABLET PO SCH (21:00)
[2021-01-05] MEDS: PREGABALIN 25 MG CAPSULE PO SCH (07:42)
[2021-01-05] MEDS: carvediloL 3.125 MG TABLET PO SCH ×2 (07:43→20:56)
[2021-01-05] MEDS: HEPARIN 5,000 UNIT/ML VIAL SUBQ SCH ×2 (07:44→20:56)
[2021-01-05] MEDS: LEVOTHYROXINE 100 MCG TABLET PO SCH (07:44)
[2021-01-05] MEDS: allopurinoL 100 MG TABLET PO SCH (07:44)
[2021-01-05] MEDS: ASPIRIN 325 MG TABLET PO SCH (07:45)
[2021-01-05] MEDS: INSULIN ASPART 300 UNIT/3 ML PEN SUBQ SCH ×4 (07:45→20:56)
[2021-01-05] MEDS: polyethylene glycoL 3350 17 GM PACKET PO SCH (07:46)
[2021-01-05] MEDS: SODIUM CHLORIDE FLUSH 0.9% 10 ML SYRINGE IVP SCH ×3 (07:46→23:25)
[2021-01-05] MEDS: INSULIN 70/30 HUMAN 300 UNIT/3 ML VIAL SUBQ SCH ×2 (07:47→17:14)
--- NOTE | 2021-01-05 15:20 | PROVIDER PROGRESS NOTE ---
Assessment/Plan - Problem List (1) Closed right acetabular fracture Qualifiers: Encounter type: subsequent encounter Sublocation of acetabulum: unspecified portion of acetabulum Fracture alignment: nondisplaced Assessment/Plan: pt has fairly good pain control, continue PT/OT, continue consult with SW for replacement. Orthopedics's recommendations are for once a week x-rays of that hip to monitor the progress. toe-touch only weight-bearing is recommended as well. (2) Falls frequently pt has positive orthostatic hypotension vital signs, add IVF and quinn hose. fall prevention measure. continue PT/OT He needs placement for PT rehab and then long-term nursing care probably (3) COVID-19 Assessment/Plan: He has no GI or respiratory symptoms. Droplet isolation continues. There is difficulty to find him a SNF that except for Covid positive patient. (4) HTN (hypertension) Assessment/Plan: BP is stable on his current meds and management (5) BANDAR (acute kidney injury) Assessment/Plan: stable during this hospitalization. Avoid nephrotoxins. followup with lab test (6) DM (diabetes mellitus) Assessment/Plan: Continue with CC diet, insulin coverage and increase slide scale dosage due to elevated glucose. 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 - Current Meds Current Meds: Current Medications Generic Name Dose Route Start Last Admin Trade Name Freq PRN Reason Stop Dose Admin Acetaminophen 650 mg 01/01/21 19:42 01/04/21 21:01 Acetaminophen 325 Mg Tablet PO 650 mg Q4HR PRN Administration Pain 1 to 4 Allopurinol 200 mg 01/02/21 14:00 01/05/21 07:44 Allopurinol 100 Mg Tablet PO 200 mg DAILY FAITH Administration Aspirin 325 mg 01/02/21 09:00 01/05/21 07:45 Aspirin 325 Mg Tablet PO 325 mg DAILY FAITH Administration Atorvastatin Calcium 10 mg 01/01/21 21:00 01/04/21 21:00 Atorvastatin 10 Mg Tablet PO 10 mg QPM FAITH Administration Carvedilol 6.25 mg 01/03/21 09:00 01/05/21 07:43 Carvedilol 3.125 Mg Tablet PO 6.25 mg BID FAITH Administration Gabapentin 900 mg 01/02/21 16:40 01/04/21 21:00 Gabapentin 300 Mg Capsule PO 900 mg QPM FAITH Administration Heparin Sodium (Porcine) 5,000 unit 01/01/21 21:00 01/05/21 07:44 Heparin 5,000 Unit/Ml Vial SUBQ 5,000 unit BID FAITH Administration Insulin Aspart 3 - 11 unit 01/05/21 12:00 01/05/21 13:05 Insulin Aspart 300 Unit/3 Ml Pen SUBQ 7 unit 0800,1200,1700,2100 FAITH Administration Protocol Insulin Human Isoph/Insulin Regular 35 unit 01/02/21 08:00 01/05/21 07:47 Insulin 70/30 Human 300 Unit/3 Ml Vial SUBQ 35 unit BIDWM FAITH Administration Levothyroxine Sodium 100 mcg 01/02/21 07:00 01/05/21 07:44 Levothyroxine 100 Mcg Tablet PO 100 mcg QDAC FAITH Administration Polyethylene Glycol 17 gm 01/03/21 11:00 01/05/21 07:46 Polyethylene Glycol 3350 17 Gm Packet PO 17 gm DAILY FAITH Administration Pregabalin 75 mg 01/02/21 16:41 01/05/21 07:42 Pregabalin 25 Mg Capsule PO 75 mg DAILY FAITH Administration Sodium Chloride 10 ml 01/02/21 01:00 01/05/21 07:46 Sodium Chloride Flush 0.9% 10 Ml Syringe IVP 10 ml 0100,0900,1700 FAITH Administration - Lab Result Fish Bone Diagrams: 01/03/21 11:20 01/03/21 11:20 - Additional Planning My Orders: My Active Orders 01/05/21 12:00 Insulin Aspart [NovoLOG] 3 - 11 unit SUBQ 0800,1200,1700,2100 Subjective - Subjective Patient Reports: Feeling Better Objective Vital Signs: Vital Signs - 24 hr 01/04/21 01/04/21 01/05/21 16:00 20:48 00:13 Temperature 36.6 C 36.5 C 36.7 C Heart Rate [ 67 63 68 Brachial] Respiratory 18 18 18 Rate Blood Pressure 127/64 163/84 H 154/78 H [Right Brachial artery] O2 Saturation 95 94 94 01/05/21 01/05/21 01/05/21 05:00 07:38 11:11 Temperature 36.5 C 36.5 C 36.4 C L Heart Rate [ 65 64 64 Brachial] Respiratory 18 18 18 Rate Blood Pressure 154/67 H 148/82 H 119/84 H [Right Brachial artery] O2 Saturation 93 95 93 Oxygen O2 Source Room air I&O (Last 24 Hrs): Intake and Output Totals x24h 01/03/21 01/04/21 01/05/21 23:59 23:59 23:59 Intake Total 1510 1440 720 Output Total 300 525 700 Balance 1210 915 20 General: Alert, Oriented x3, Cooperative, No acute distress HEENT: Atraumatic Neck: Supple Lymphatic: no adenopathy Neuro: Alert, Non Focal, Oriented Times 3 Cardiovascular: Regular rate, Normal S1, Normal S2 Respiratory: Chest non-tender, No respiratory distress Abdomen: Normal bowel sounds, Soft Extremities: Normal pulses - Results Results: Laboratory Results WBC 8.3 x10^3/uL (4.8-10.8) 01/03/21 11:20 RBC 4.39 10^6/uL (4.70-6.10) L 01/03/21 11:20 Hgb 14.5 g/dL (14.0-18.0) 01/03/21 11:20 Hct 44.6 % (42.0-52.0) 01/03/21 11:20 MCV 101.6 fL (80.0-94.0) H 01/03/21 11:20 MCH 33.0 pg (27.0-31.0) H 01/03/21 11:20 MCHC 32.5 g/dL (32.0-36.0) 01/03/21 11:20 RDW 13.4 % (12.0-15.0) 01/03/21 11:20 Plt Count 155 10^3/uL (130-450) 01/03/21 11:20 MPV 11.6 fL (7.4-11.4) H 01/03/21 11:20 Neut # (Auto) 5.4 10^3/uL (1.5-6.6) 01/03/21 11:20 Lymph # (Auto) 1.6 10^3/uL (1.5-3.5) 01/03/21 11:20 [place] # (Auto) 0.7 10^3/uL (0.0-1.0) 01/03/21 11:20 Eos # (Auto) 0.5 10^3/uL (0.0-0.7) 01/03/21 11:20 Baso # (Auto) 0.1 10^3/uL (0.0-0.1) 01/03/21 11:20 Absolute Nucleated RBC 0.00 x10^3/uL 01/03/21 11:20 Nucleated RBC % 0.0 /100WBC 01/03/21 11:20 PT 13.8 secs (9.9-12.6) H 12/31/20 21:41 INR 1.2 (0.8-1.2) 12/31/20 21:41 Sodium 135 mmol/L (135-145) 01/03/21 11:20 Potassium 4.3 mmol/L (3.5-5.0) 01/03/21 11:20 Chloride 100 mmol/L (101-111) L 01/03/21 11:20 Carbon Dioxide 27 mmol/L (21-32) 01/03/21 11:20 Anion Gap 8.0 (6-13) 01/03/21 11:20 BUN 30 mg/dL (6-20) H 01/03/21 11:20 Creatinine 1.3 mg/dL (0.6-1.2) H 01/03/21 11:20 Estimated GFR (MDRD) 53 (>89) L 01/03/21 11:20 Glucose 307 mg/dL (70-100) H 01/03/21 11:20 POC Whole Bld Glucose 250 mg/dL (70 - 100) H 01/05/21 11:07 Estimat Average Glucose 206 mg/dL (70-100) H 01/01/21 19:47 Hemoglobin A1c % 8.8 % (4.27-6.07) H 01/01/21 19:47 Calcium 8.5 mg/dL (8.5-10.3) 01/03/21 11:20 Total Bilirubin 0.8 mg/dL (0.2-1.0) 12/31/20 21:41 AST 18 IU/L (10-42) 12/31/20 21:41 ALT 19 IU/L (10-60) 12/31/20 21:41 Alkaline Phosphatase 76 IU/L (42-121) 12/31/20 21:41 Ammonia 17.0 umol/L (7-35) 01/01/21 19:47 Total Protein 7.1 g/dL (6.7-8.2) 12/31/20 21:41 Albumin 3.3 g/dL (3.2-5.5) 12/31/20 21:41 Globulin 3.8 g/dL (2.1-4.2) 12/31/20 21:41 Albumin/Globulin Ratio 0.9 (1.0-2.2) L 12/31/20 21:41 Lipase 30 U/L (22-51) 12/31/20 21:41 TSH 3.22 uIU/mL (0.34-5.60) 01/01/21 19:47 Urine Color YELLOW 01/02/21 01:25 Urine Clarity CLEAR (CLEAR) 01/02/21 01:25 Urine pH 6.0 PH (5.0-7.5) 01/02/21 01:25 Ur Specific [place] 1.015 (1.002-1.030) 01/02/21 01:25 Urine Protein NEGATIVE mg/dL (NEGATIVE) 01/02/21 01:25 Urine Glucose (UA) >=1000 mg/dL (NEGATIVE) H 01/02/21 01:25 Urine Ketones NEGATIVE mg/dL (NEGATIVE) 01/02/21 01:25 Urine Occult Blood TRACE-LYSE (NEGATIVE) 01/02/21 01:25 Urine Nitrite NEGATIVE (NEGATIVE) 01/02/21 01:25 Urine Bilirubin NEGATIVE (NEGATIVE) 01/02/21 01:25 Urine Urobilinogen 0.2 (NORMAL) E.U./dL (NORMAL) 01/02/21 01:25 Ur Leukocyte Esterase NEGATIVE (NEGATIVE) 01/02/21 01:25 Urine RBC 0-5 /HPF (0-5) 01/02/21 01:25 Urine WBC 0-3 /HPF (0-3) 01/02/21 01:25 Ur Squamous Epith Cells NONE SEEN (<= Few) 01/02/21 01:25 Urine Bacteria None Seen /HPF (None Seen) 01/02/21 01:25 Urine Culture Comments NOT INDICATED 01/02/21 01:25 Nasal Adenovirus (PCR) NOT DETECTED 01/01/21 15:39 Nasal B. parapertussis DNA (PCR) NOT DETECTED 01/01/21 15:39 Nasal Coronavir 229E PCR NOT DETECTED 01/01/21 15:39 Nasal Coronavir HKU1 PCR NOT DETECTED 01/01/21 15:39 Nasal Coronavir NL63 PCR NOT DETECTED 01/01/21 15:39 Nasal Coronavir OC43 PCR NOT DETECTED 01/01/21 15:39 Nasal Enterovir/Rhinovir PCR NOT DETECTED 01/01/21 15:39 Nasal Influenza B PCR NOT DETECTED 01/01/21 15:39 Nasal Influenza A PCR NOT DETECTED 01/01/21 15:39 Nasal Parainfluen 1 PCR NOT DETECTED 01/01/21 15:39 Nasal Parainfluen 2 PCR NOT DETECTED 01/01/21 15:39 Nasal Parainfluen 3 PCR NOT DETECTED 01/01/21 15:39 Nasal Parainfluen 4 PCR NOT DETECTED 01/01/21 15:39 Nasal RSV (PCR) NOT DETECTED 01/01/21 15:39 Nasal B.pertussis DNA PCR NOT DETECTED 01/01/21 15:39 Nasal C.pneumoniae (PCR) NOT DETECTED 01/01/21 15:39 Justino Human Metapneumo PCR NOT DETECTED 01/01/21 15:39 Nasal M.pneumoniae (PCR) NOT DETECTED 01/01/21 15:39 Nasal SARS-CoV-2 (PCR) DETECTED A 01/01/21 15:39 ABX Reporting Has patient been on IV antibiotics over the past 48 hours?: No Current Medications - Current Medications Current Medications: Active Medications Acetaminophen (Acetaminophen 325 Mg Tablet) 650 mg PO Q4HR PRN PRN Reason: Pain 1 to 4 Last Admin: 01/04/21 21:01 Dose: 650 mg Documented by: Hydrocodone Bitart/Acetaminophen (Hydrocod/Acetam 5/325 Mg Tablet) 1 tab PO Q4HR PRN PRN Reason: Pain 5 to 7 Allopurinol (Allopurinol 100 Mg Tablet) 200 mg PO DAILY [facility] Last Admin: 01/05/21 07:44 Dose: 200 mg Documented by: Aspirin (Aspirin 325 Mg Tablet) 325 mg PO DAILY [facility] Last Admin: 01/05/21 07:45 Dose: 325 mg Documented by: Atorvastatin Calcium (Atorvastatin 10 Mg Tablet) 10 mg PO QPM [facility] Last Admin: 01/04/21 21:00 Dose: 10 mg Documented by: Carvedilol (Carvedilol 3.125 Mg Tablet) 6.25 mg PO BID [facility] Last Admin: 01/05/21 07:43 Dose: 6.25 mg Documented by: Gabapentin (Gabapentin 300 Mg Capsule) 900 mg PO QPM [facility] Last Admin: 01/04/21 21:00 Dose: 900 mg Documented by: Heparin Sodium (Porcine) (Heparin 5,000 Unit/Ml Vial) 5,000 unit SUBQ BID [facility] Last Admin: 01/05/21 07:44 Dose: 5,000 unit Documented by: Sodium Chloride (Normal Saline 0.9%) 1,000 mls @ 83.333 mls/hr IV .Q12H [facility] Stop: 01/06/21 15:59 Insulin Aspart (Insulin Aspart 300 Unit/3 Ml Pen) 3 - 11 unit SUBQ 0800,1200,1700,2100 [facility]; Protocol Last Admin: 01/05/21 13:05 Dose: 7 unit Documented by: Insulin Human Isoph/Insulin Regular (Insulin 70/30 Human 300 Unit/3 Ml Vial) 35 unit SUBQ BIDWM [facility] Last Admin: 01/05/21 07:47 Dose: 35 unit Documented by: Levothyroxine Sodium (Levothyroxine 100 Mcg Tablet) 100 mcg PO QDAC [facility] Last Admin: 01/05/21 07:44 Dose: 100 mcg Documented by: Morphine Sulfate (Morphine 2 Mg/Ml Carpuject) 2 mg IVP Q8HR PRN PRN Reason: Pain 8 to 10 Ondansetron HCl (Ondansetron 4 Mg/2 Ml Vial) 4 mg IVP Q6HR PRN PRN Reason: Nausea / Vomiting Polyethylene Glycol (Polyethylene Glycol 3350 17 Gm Packet) 17 gm PO DAILY [facility] Last Admin: 01/05/21 07:46 Dose: 17 gm Documented by: Pregabalin (Pregabalin 25 Mg Capsule) 75 mg PO DAILY [facility] Last Admin: 01/05/21 07:42 Dose: 75 mg Documented by: Sodium Chloride (Sodium Chloride Flush 0.9% 10 Ml Syringe) 10 ml IVP PRN PRN PRN Reason: NEEDED PER PROVIDER ORDERS Sodium Chloride (Sodium Chloride Flush 0.9% 10 Ml Syringe) 10 ml IVP 0100,0900,1700 [facility] Last Admin: 01/05/21 07:46 Dose: 10 ml Documented by: Aspirin 325 mg PO DAILY 09/09/16 Furosemide [Lasix] 80 mg PO DAILY 09/09/16 Insulin NPH Hum/Reg Insulin Hm [Humulin 70/30 Kwikpen] 50 unit SQ BIDWM 09/09/16 Levothyroxine Sodium 100 mcg PO QDBREAKFAST 09/09/16 Lovastatin 20 mg PO QPM 09/09/16 [place]-3/Dha/Epa/Fish Oil [[place] 3 500 Softgel] 1 each PO DAILY 09/09/16 Potassium Chloride 40 meq PO DAILYWM 09/09/16 Pregabalin [Lyrica] 675 mg PO DAILY 09/09/16 Carvedilol 6.25 mg PO BID 12/03/18 Gabapentin 900 mg PO QPM 12/03/18 Telmisartan 80 mg PO DAILY 12/31/20 allopurinoL [Zyloprim] 200 mg PO DAILY 12/31/20 Montelukast [Singulair] 10 mg PO QPM 01/02/21
[2021-01-05] MEDS: SODIUM CHLORIDE 0.9% 1,000 ML IV SCH (17:14)
[2021-01-05] MEDS: ATORVASTATIN 10 MG TABLET PO SCH (20:56)
[2021-01-05] MEDS: ACETAMINOPHEN 325 MG TABLET PO PRN (20:56)
[2021-01-05] MEDS: GABAPENTIN 300 MG CAPSULE PO SCH (20:56)
[2021-01-05 22:05] LABS: B. PARAPERTUSSIS- RESP PCR PAN NOT DETECTED; B. PERTUSSIS- RESP PCR PANEL NOT DETECTED; C. PNEUMONIAE- RESP PCR PANEL NOT DETECTED; CORONAVIRUS 229E-RESP PCR NOT DETECTED; CORONAVIRUS HKU1-RESP PCR NOT DETECTED; CORONAVIRUS NL63-RESP PCR NOT DETECTED; CORONAVIRUS OC43-RESP PCR NOT DETECTED; HUMAN METAPNEUMOVIRUS NOT DETECTED; INFLUENZA A- RESP PCR PANEL NOT DETECTED; INFLUENZA B - RESP PCR PANEL NOT DETECTED; M. PNEUMONIAE- RESP PCR PANEL NOT DETECTED; PARAINFLUENZA VIRUS 1 NOT DETECTED; PARAINFLUENZA VIRUS 2 NOT DETECTED; PARAINFLUENZA VIRUS 3 NOT DETECTED; PARAINFLUENZA VIRUS 4 NOT DETECTED; RHINOVIRUS/ENTEROVIRUS NOT DETECTED; RSV- RESP PCR PANEL NOT DETECTED
[2021-01-05 22:08] LABS: SARS-CoV-2 -RESP PCR PANEL DETECTED
[2021-01-06] MEDS: SODIUM CHLORIDE 0.9% 1,000 ML IV SCH (04:57)
[2021-01-06] MEDS: LEVOTHYROXINE 100 MCG TABLET PO SCH (05:54)
[2021-01-06 06:37] LABS: CALCIUM 8.9 mg/dL (8.5-10.3); CREATININE 1.1 mg/dL (0.6-1.2); POTASSIUM 4.3 mmol/L (3.5-5.0)
[2021-01-06] MEDS: HEPARIN 5,000 UNIT/ML VIAL SUBQ SCH ×2 (09:58→22:07)
[2021-01-06] MEDS: INSULIN ASPART 300 UNIT/3 ML PEN SUBQ SCH ×4 (09:59→22:08)
[2021-01-06] MEDS: INSULIN 70/30 HUMAN 300 UNIT/3 ML VIAL SUBQ SCH ×2 (10:00→16:46)
[2021-01-06] MEDS: polyethylene glycoL 3350 17 GM PACKET PO SCH (10:05)
[2021-01-06] MEDS: PREGABALIN 25 MG CAPSULE PO SCH (10:07)
[2021-01-06] MEDS: allopurinoL 100 MG TABLET PO SCH (10:08)
[2021-01-06] MEDS: carvediloL 3.125 MG TABLET PO SCH ×2 (10:08→22:24)
[2021-01-06] MEDS: ASPIRIN 325 MG TABLET PO SCH (10:11)
[2021-01-06] MEDS: SODIUM CHLORIDE FLUSH 0.9% 10 ML SYRINGE IVP SCH ×2 (10:12→16:25)
--- NOTE | 2021-01-06 11:29 | PROVIDER PROGRESS NOTE ---
Assessment/Plan - Problem List (1) Closed right acetabular fracture Qualifiers: Encounter type: subsequent encounter Sublocation of acetabulum: unspecified portion of acetabulum Fracture alignment: nondisplaced Assessment/Plan: 01/06 Patient reported he had a good Pain control. Continue PT and OT, follow up with ortho recommendation. Continue consult with social work for replacement pt has fairly good pain control, continue PT/OT, continue consult with SW for replacement. Orthopedics's recommendations are for once a week x-rays of that hip to monitor the progress. toe-touch only weight-bearing is recommended as well. (2) Falls frequently 01/06 Patient's orthostatic hypotension resolved. Continue fall precaution. pt has positive orthostatic hypotension vital signs, add IVF and vinay hose. fall prevention measure. continue PT/OT He needs placement for PT rehab and then long-term nursing care probably (3) COVID-19 Assessment/Plan: 01/06 pt's believe it be false positive test of Covid 19 but Repeated COVID- 19 testing is still positive, patient is asymptomatic He has no GI or respiratory symptoms. Droplet isolation continues. There is difficulty to find him a SNF that except for Covid positive patient. (4) HTN (hypertension) Assessment/Plan: BP is stable on his current meds and management (5) BANDAR (acute kidney injury) Assessment/Plan: resolved. Creatinine is 1.1 (6) DM (diabetes mellitus) Assessment/Plan: Continue with CC diet, continue insulin coverage and increase slide scale dosage due to elevated glucose. (7) MANAGER ORGANIZATIONAL (ventriculoperitoneal) shunt status Assessment/Plan: pt has hx of MANAGER ORGANIZATIONAL, stable now. - Current Meds Current Meds: Current Medications Generic Name Dose Route Start Last Admin Trade Name Freq PRN Reason Stop Dose Admin Acetaminophen 650 mg 01/01/21 19:42 01/05/21 20:56 Acetaminophen 325 Mg Tablet PO 650 mg Q4HR PRN Administration Pain 1 to 4 Allopurinol 200 mg 01/02/21 14:00 01/06/21 10:08 Allopurinol 100 Mg Tablet PO 200 mg DAILY FAITH Administration Aspirin 325 mg 01/02/21 09:00 01/06/21 10:11 Aspirin 325 Mg Tablet PO 325 mg DAILY FAITH Administration Atorvastatin Calcium 10 mg 01/01/21 21:00 01/05/21 20:56 Atorvastatin 10 Mg Tablet PO 10 mg QPM FAITH Administration Carvedilol 6.25 mg 01/03/21 09:00 01/06/21 10:08 Carvedilol 3.125 Mg Tablet PO 6.25 mg BID FAITH Administration Gabapentin 900 mg 01/02/21 16:40 01/05/21 20:56 Gabapentin 300 Mg Capsule PO 900 mg QPM FAITH Administration Heparin Sodium (Porcine) 5,000 unit 01/01/21 21:00 01/06/21 09:58 Heparin 5,000 Unit/Ml Vial SUBQ 5,000 unit BID FAITH Administration Sodium Chloride 1,000 mls @ 83.333 mls/hr 01/05/21 16:00 01/06/21 04:57 Normal Saline 0.9% IV 01/06/21 15:59 83.333 mls/hr .Q12H FAITH Administration Insulin Aspart 3 - 11 unit 01/05/21 12:00 01/06/21 09:59 Insulin Aspart 300 Unit/3 Ml Pen SUBQ 3 unit 0800,1200,1700,2100 FAITH Administration Protocol Insulin Human Isoph/Insulin Regular 35 unit 01/02/21 08:00 01/06/21 10:00 Insulin 70/30 Human 300 Unit/3 Ml Vial SUBQ 35 unit BIDWM FAITH Administration Levothyroxine Sodium 100 mcg 01/02/21 07:00 01/06/21 05:54 Levothyroxine 100 Mcg Tablet PO 100 mcg QDAC FAITH Administration Polyethylene Glycol 17 gm 01/03/21 11:00 01/06/21 10:05 Polyethylene Glycol 3350 17 Gm Packet PO 17 gm DAILY FAITH Administration Pregabalin 75 mg 01/02/21 16:41 01/06/21 10:07 Pregabalin 25 Mg Capsule PO 75 mg DAILY FAITH Administration Sodium Chloride 10 ml 01/02/21 01:00 01/06/21 10:12 Sodium Chloride Flush 0.9% 10 Ml Syringe IVP Not Given 0100,0900,1700 REPLACED BY [facility] - Lab Result Fish Bone Diagrams: 01/03/21 11:20 01/06/21 06:19 - Additional Planning My Orders: My Active Orders 01/05/21 12:00 Insulin Aspart [NovoLOG] 3 - 11 unit SUBQ 0800,1200,1700,2100 01/05/21 15:22 Vinay Hose and Compression Devic [RC] QSHIFT 01/05/21 16:00 Sodium Chloride 0.9% [Normal Saline 0.9%] 1,000 ml IV 83.333 mls/hr 01/07/21 05:00 BMP - BASIC METABOLIC PANEL [CHEM] DAILYLAB 01/08/21 05:00 BMP - BASIC METABOLIC PANEL [CHEM] DAILYLAB 01/09/21 05:00 BMP - BASIC METABOLIC PANEL [CHEM] DAILYLAB 01/10/21 05:00 BMP - BASIC METABOLIC PANEL [CHEM] DAILYLAB Subjective - Subjective Patient Reports: Feeling Better Objective Vital Signs: Vital Signs - 24 hr 01/05/21 01/05/21 01/06/21 16:38 20:40 00:43 Temperature 36.9 C 37.0 C 36.4 C L Heart Rate [ 64 75 64 Brachial] Heart Rate [ Monitoring electrodes] Respiratory 16 26 H 18 Rate Blood Pressure [Left Radial artery] Blood Pressure 155/93 H 178/71 H 145/75 H [Right Brachial artery] O2 Saturation 94 94 93 01/06/21 01/06/21 01/06/21 05:00 08:47 11:04 Temperature 36.4 C L 36.4 C L 36.5 C Heart Rate [ 65 63 Brachial] Heart Rate [ 65 Monitoring electrodes] Respiratory 18 20 22 Rate Blood Pressure 189/80 H 148/93 H [Left Radial artery] Blood Pressure 164/99 H [Right Brachial artery] O2 Saturation 94 95 93 Oxygen O2 Source Room air I&O (Last 24 Hrs): Intake and Output Totals x24h 01/04/21 01/05/21 01/06/21 23:59 23:59 23:59 Intake Total 1440 1260 1226.385 Output Total 525 1050 1075 Balance 915 210 151.385 General: Alert, Oriented x3, Cooperative, No acute distress HEENT: Atraumatic, PERRLA Neck: Supple Lymphatic: no adenopathy Neuro: Alert, Non Focal, Oriented Times 3 Cardiovascular: Regular rate, Normal S1, Normal S2 Respiratory: Chest non-tender, No respiratory distress Abdomen: Normal bowel sounds, Soft Extremities: Normal pulses - Results Results: Laboratory Results WBC 8.3 x10^3/uL (4.8-10.8) 01/03/21 11:20 RBC 4.39 10^6/uL (4.70-6.10) L 01/03/21 11:20 Hgb 14.5 g/dL (14.0-18.0) 01/03/21 11:20 Hct 44.6 % (42.0-52.0) 01/03/21 11:20 MCV 101.6 fL (80.0-94.0) H 01/03/21 11:20 MCH 33.0 pg (27.0-31.0) H 01/03/21 11:20 MCHC 32.5 g/dL (32.0-36.0) 01/03/21 11:20 RDW 13.4 % (12.0-15.0) 01/03/21 11:20 Plt Count 155 10^3/uL (130-450) 01/03/21 11:20 MPV 11.6 fL (7.4-11.4) H 01/03/21 11:20 Neut # (Auto) 5.4 10^3/uL (1.5-6.6) 01/03/21 11:20 Lymph # (Auto) 1.6 10^3/uL (1.5-3.5) 01/03/21 11:20 [place] # (Auto) 0.7 10^3/uL (0.0-1.0) 01/03/21 11:20 Eos # (Auto) 0.5 10^3/uL (0.0-0.7) 01/03/21 11:20 Baso # (Auto) 0.1 10^3/uL (0.0-0.1) 01/03/21 11:20 Absolute Nucleated RBC 0.00 x10^3/uL 01/03/21 11:20 Nucleated RBC % 0.0 /100WBC 01/03/21 11:20 PT 13.8 secs (9.9-12.6) H 12/31/20 21:41 INR 1.2 (0.8-1.2) 12/31/20 21:41 Sodium 139 mmol/L (135-145) 01/06/21 06:19 Potassium 4.3 mmol/L (3.5-5.0) 01/06/21 06:19 Chloride 105 mmol/L (101-111) 01/06/21 06:19 Carbon Dioxide 26 mmol/L (21-32) 01/06/21 06:19 Anion Gap 8.0 (6-13) 01/06/21 06:19 BUN 29 mg/dL (6-20) H 01/06/21 06:19 Creatinine 1.1 mg/dL (0.6-1.2) 01/06/21 06:19 Estimated GFR (MDRD) 64 (>89) L 01/06/21 06:19 Glucose 134 mg/dL (70-100) H 01/06/21 06:19 POC Whole Bld Glucose 270 mg/dL (70 - 100) H 01/06/21 11:03 Estimat Average Glucose 206 mg/dL (70-100) H 01/01/21 19:47 Hemoglobin A1c % 8.8 % (4.27-6.07) H 01/01/21 19:47 Calcium 8.9 mg/dL (8.5-10.3) 01/06/21 06:19 Total Bilirubin 0.8 mg/dL (0.2-1.0) 12/31/20 21:41 AST 18 IU/L (10-42) 12/31/20 21:41 ALT 19 IU/L (10-60) 12/31/20 21:41 Alkaline Phosphatase 76 IU/L (42-121) 12/31/20 21:41 Ammonia 17.0 umol/L (7-35) 01/01/21 19:47 Total Protein 7.1 g/dL (6.7-8.2) 12/31/20 21:41 Albumin 3.3 g/dL (3.2-5.5) 12/31/20 21:41 Globulin 3.8 g/dL (2.1-4.2) 12/31/20 21:41 Albumin/Globulin Ratio 0.9 (1.0-2.2) L 12/31/20 21:41 Lipase 30 U/L (22-51) 12/31/20 21:41 TSH 3.22 uIU/mL (0.34-5.60) 01/01/21 19:47 Urine Color YELLOW 01/02/21 01:25 Urine Clarity CLEAR (CLEAR) 01/02/21 01:25 Urine pH 6.0 PH (5.0-7.5) 01/02/21 01:25 Ur Specific [place] 1.015 (1.002-1.030) 01/02/21 01:25 Urine Protein NEGATIVE mg/dL (NEGATIVE) 01/02/21 01:25 Urine Glucose (UA) >=1000 mg/dL (NEGATIVE) H 01/02/21 01:25 Urine Ketones NEGATIVE mg/dL (NEGATIVE) 01/02/21 01:25 Urine Occult Blood TRACE-LYSE (NEGATIVE) 01/02/21 01:25 Urine Nitrite NEGATIVE (NEGATIVE) 01/02/21 01:25 Urine Bilirubin NEGATIVE (NEGATIVE) 01/02/21 01:25 Urine Urobilinogen 0.2 (NORMAL) E.U./dL (NORMAL) 01/02/21 01:25 Ur Leukocyte Esterase NEGATIVE (NEGATIVE) 01/02/21 01:25 Urine RBC 0-5 /HPF (0-5) 01/02/21 01:25 Urine WBC 0-3 /HPF (0-3) 01/02/21 01:25 Ur Squamous Epith Cells NONE SEEN (<= Few) 01/02/21 01:25 Urine Bacteria None Seen /HPF (None Seen) 01/02/21 01:25 Urine Culture Comments NOT INDICATED 01/02/21 01:25 Nasal Adenovirus (PCR) NOT DETECTED 01/05/21 20:45 Nasal B. parapertussis DNA (PCR) NOT DETECTED 01/05/21 20:45 Nasal Coronavir 229E PCR NOT DETECTED 01/05/21 20:45 Nasal Coronavir HKU1 PCR NOT DETECTED 01/05/21 20:45 Nasal Coronavir NL63 PCR NOT DETECTED 01/05/21 20:45 Nasal Coronavir OC43 PCR NOT DETECTED 01/05/21 20:45 Nasal Enterovir/Rhinovir PCR NOT DETECTED 01/05/21 20:45 Nasal Influenza B PCR NOT DETECTED 01/05/21 20:45 Nasal Influenza A PCR NOT DETECTED 01/05/21 20:45 Nasal Parainfluen 1 PCR NOT DETECTED 01/05/21 20:45 Nasal Parainfluen 2 PCR NOT DETECTED 01/05/21 20:45 Nasal Parainfluen 3 PCR NOT DETECTED 01/05/21 20:45 Nasal Parainfluen 4 PCR NOT DETECTED 01/05/21 20:45 Nasal RSV (PCR) NOT DETECTED 01/05/21 20:45 Nasal B.pertussis DNA PCR NOT DETECTED 01/05/21 20:45 Nasal C.pneumoniae (PCR) NOT DETECTED 01/05/21 20:45 Justino Human Metapneumo PCR NOT DETECTED 01/05/21 20:45 Nasal M.pneumoniae (PCR) NOT DETECTED 01/05/21 20:45 Nasal SARS-CoV-2 (PCR) DETECTED A 01/05/21 20:45 ABX Reporting Has patient been on IV antibiotics over the past 48 hours?: No Current Medications - Current Medications Current Medications: Active Medications Acetaminophen (Acetaminophen 325 Mg Tablet) 650 mg PO Q4HR PRN PRN Reason: Pain 1 to 4 Last Admin: 01/05/21 20:56 Dose: 650 mg Documented by: Hydrocodone Bitart/Acetaminophen (Hydrocod/Acetam 5/325 Mg Tablet) 1 tab PO Q4HR PRN PRN Reason: Pain 5 to 7 Allopurinol (Allopurinol 100 Mg Tablet) 200 mg PO DAILY REPLACED BY [facility] Last Admin: 01/06/21 10:08 Dose: 200 mg Documented by: Aspirin (Aspirin 325 Mg Tablet) 325 mg PO DAILY REPLACED BY [facility] Last Admin: 01/06/21 10:11 Dose: 325 mg Documented by: Atorvastatin Calcium (Atorvastatin 10 Mg Tablet) 10 mg PO QPM REPLACED BY [facility] Last Admin: 01/05/21 20:56 Dose: 10 mg Documented by: Carvedilol (Carvedilol 3.125 Mg Tablet) 6.25 mg PO BID REPLACED BY [facility] Last Admin: 01/06/21 10:08 Dose: 6.25 mg Documented by: Gabapentin (Gabapentin 300 Mg Capsule) 900 mg PO QPM REPLACED BY [facility] Last Admin: 01/05/21 20:56 Dose: 900 mg Documented by: Heparin Sodium (Porcine) (Heparin 5,000 Unit/Ml Vial) 5,000 unit SUBQ BID REPLACED BY [facility] Last Admin: 01/06/21 09:58 Dose: 5,000 unit Documented by: Sodium Chloride (Normal Saline 0.9%) 1,000 mls @ 83.333 mls/hr IV .Q12H FATIH Stop: 01/06/21 15:59 Last Admin: 01/06/21 04:57 Dose: 83.333 mls/hr Documented by: Insulin Aspart (Insulin Aspart 300 Unit/3 Ml Pen) 3 - 11 unit SUBQ 0800,1200,1700,2100 FAITH; Protocol Last Admin: 01/06/21 09:59 Dose: 3 unit Documented by: Insulin Human Isoph/Insulin Regular (Insulin 70/30 Human 300 Unit/3 Ml Vial) 35 unit SUBQ BIDWM REPLACED BY [facility] Last Admin: 01/06/21 10:00 Dose: 35 unit Documented by: Levothyroxine Sodium (Levothyroxine 100 Mcg Tablet) 100 mcg PO QDAC REPLACED BY [facility] Last Admin: 01/06/21 05:54 Dose: 100 mcg Documented by: Morphine Sulfate (Morphine 2 Mg/Ml Carpuject) 2 mg IVP Q8HR PRN PRN Reason: Pain 8 to 10 Ondansetron HCl (Ondansetron 4 Mg/2 Ml Vial) 4 mg IVP Q6HR PRN PRN Reason: Nausea / Vomiting Polyethylene Glycol (Polyethylene Glycol 3350 17 Gm Packet) 17 gm PO DAILY REPLACED BY [facility] Last Admin: 01/06/21 10:05 Dose: 17 gm Documented by: Pregabalin (Pregabalin 25 Mg Capsule) 75 mg PO DAILY REPLACED BY [facility] Last Admin: 01/06/21 10:07 Dose: 75 mg Documented by: Sodium Chloride (Sodium Chloride Flush 0.9% 10 Ml Syringe) 10 ml IVP PRN PRN PRN Reason: NEEDED PER PROVIDER ORDERS Sodium Chloride (Sodium Chloride Flush 0.9% 10 Ml Syringe) 10 ml IVP 0100,0900,1700 REPLACED BY [facility] Last Admin: 01/06/21 10:12 Dose: Not Given Documented by: Aspirin 325 mg PO DAILY 09/09/16 Furosemide [Lasix] 80 mg PO DAILY 09/09/16 Insulin NPH Hum/Reg Insulin Hm [Humulin 70/30 Kwikpen] 50 unit SQ BIDWM 09/09/16 Levothyroxine Sodium 100 mcg PO QDBREAKFAST 09/09/16 Lovastatin 20 mg PO QPM 09/09/16 [place]-3/Dha/Epa/Fish Oil [[place] 3 500 Softgel] 1 each PO DAILY 09/09/16 Potassium Chloride 40 meq PO DAILYWM 09/09/16 Pregabalin [Lyrica] 675 mg PO DAILY 09/09/16 Carvedilol 6.25 mg PO BID 12/03/18 Gabapentin 900 mg PO QPM 12/03/18 Telmisartan 80 mg PO DAILY 12/31/20 allopurinoL [Zyloprim] 200 mg PO DAILY 12/31/20 Montelukast [Singulair] 10 mg PO QPM 01/02/21
[2021-01-06] MEDS: GABAPENTIN 300 MG CAPSULE PO SCH (22:11)
[2021-01-06] MEDS: ATORVASTATIN 10 MG TABLET PO SCH (22:12)
[2021-01-07] MEDS: ACETAMINOPHEN 325 MG TABLET PO PRN ×2 (01:56→06:55)
[2021-01-07] MEDS: SODIUM CHLORIDE FLUSH 0.9% 10 ML SYRINGE IVP SCH ×3 (01:59→17:08)
[2021-01-07 06:41] LABS: CALCIUM 8.6 mg/dL (8.5-10.3); CREATININE 1.1 mg/dL (0.6-1.2); POTASSIUM 4.2 mmol/L (3.5-5.0)
[2021-01-07] MEDS: LEVOTHYROXINE 100 MCG TABLET PO SCH (06:55)
[2021-01-07] MEDS: INSULIN ASPART 300 UNIT/3 ML PEN SUBQ SCH ×4 (08:22→21:19)
[2021-01-07] MEDS ORDERED: LOSARTAN 50 MG TABLET PO SCH (09:00)
[2021-01-07] MEDS: INSULIN 70/30 HUMAN 300 UNIT/3 ML VIAL SUBQ SCH ×2 (09:17→17:07)
[2021-01-07] MEDS: allopurinoL 100 MG TABLET PO SCH (09:20)
[2021-01-07] MEDS: ASPIRIN 325 MG TABLET PO SCH (09:20)
[2021-01-07] MEDS: PREGABALIN 25 MG CAPSULE PO SCH (09:21)
[2021-01-07] MEDS: polyethylene glycoL 3350 17 GM PACKET PO SCH (09:21)
[2021-01-07] MEDS: carvediloL 3.125 MG TABLET PO SCH ×2 (09:21→21:19)
[2021-01-07] MEDS: HEPARIN 5,000 UNIT/ML VIAL SUBQ SCH ×2 (10:37→21:14)
--- NOTE | 2021-01-07 11:28 | PROVIDER PROGRESS NOTE ---
Assessment/Plan - Problem List (1) Closed right acetabular fracture Qualifiers: Encounter type: subsequent encounter Sublocation of acetabulum: unspecified portion of acetabulum Fracture alignment: nondisplaced Assessment/Plan: 01/07 pt feel comfort, her right lower extremity pain is in the good control. Continue PT and OT, consult social work program coordinator for replacement. 01/06 Patient reported he had a good Pain control. Continue PT and OT, follow up with ortho recommendation. Continue consult with social work for replacement pt has fairly good pain control, continue PT/OT, continue consult with SW for replacement. Orthopedics's recommendations are for once a week x-rays of that hip to monitor the progress. toe-touch only weight-bearing is recommended as well. (2) Falls frequently 01/06 Patient's orthostatic hypotension resolved. Continue fall precaution. pt has positive orthostatic hypotension vital signs, add IVF and quinn hose. fall prevention measure. continue PT/OT He needs placement for PT rehab and then long-term nursing care probably (3) COVID-19 Assessment/Plan: 01/07 pt has no respiratory distress and Hemodynamically stable. 01/06 pt's believe it be false positive test of Covid 19 but Repeated COVID- 19 testing is still positive, patient is asymptomatic He has no GI or respiratory symptoms. Droplet isolation continues. There is difficulty to find him a SNF that except for Covid positive patient. (4) HTN (hypertension) Assessment/Plan: 01/07, slight elevated BP, resume home Losartan BP is stable on his current meds and management (5) BANDAR (acute kidney injury) Assessment/Plan: resolved. Creatinine is 1.1 (6) DM (diabetes mellitus) Assessment/Plan: Continue with CC diet, continue insulin coverage and increase slide scale dosage due to elevated glucose. (7) ACCOUNTING ADMINISTRATOR (ventriculoperitoneal) shunt status Assessment/Plan: pt has hx of ACCOUNTING ADMINISTRATOR, stable now. - Current Meds Current Meds: Current Medications Generic Name Dose Route Start Last Admin Trade Name Freq PRN Reason Stop Dose Admin Acetaminophen 650 mg 01/01/21 19:42 01/07/21 06:55 Acetaminophen 325 Mg Tablet PO 650 mg Q4HR PRN Administration Pain 1 to 4 Allopurinol 200 mg 01/02/21 14:00 01/07/21 09:20 Allopurinol 100 Mg Tablet PO 200 mg DAILY FAITH Administration Aspirin 325 mg 01/02/21 09:00 01/07/21 09:20 Aspirin 325 Mg Tablet PO 325 mg DAILY FAITH Administration Atorvastatin Calcium 10 mg 01/01/21 21:00 01/06/21 22:12 Atorvastatin 10 Mg Tablet PO 10 mg QPM FAITH Administration Carvedilol 6.25 mg 01/03/21 09:00 01/07/21 09:21 Carvedilol 3.125 Mg Tablet PO 6.25 mg BID FAITH Administration Gabapentin 900 mg 01/02/21 16:40 01/06/21 22:11 Gabapentin 300 Mg Capsule PO 900 mg QPM FAITH Administration Heparin Sodium (Porcine) 5,000 unit 01/01/21 21:00 01/07/21 10:37 Heparin 5,000 Unit/Ml Vial SUBQ 5,000 unit BID FAITH Administration Insulin Aspart 3 - 11 unit 01/05/21 12:00 01/07/21 08:22 Insulin Aspart 300 Unit/3 Ml Pen SUBQ Not Given 0800,1200,1700,2100 [facility] Protocol Insulin Human Isoph/Insulin Regular 35 unit 01/02/21 08:00 01/07/21 09:17 Insulin 70/30 Human 300 Unit/3 Ml Vial SUBQ 35 unit BIDWM FAITH Administration Levothyroxine Sodium 100 mcg 01/02/21 07:00 01/07/21 06:55 Levothyroxine 100 Mcg Tablet PO 100 mcg QDAC FAITH Administration Losartan Potassium 50 mg 01/07/21 09:00 01/07/21 10:37 Losartan 50 Mg Tablet PO 50 mg DAILY FAITH Administration Polyethylene Glycol 17 gm 01/03/21 11:00 01/07/21 09:21 Polyethylene Glycol 3350 17 Gm Packet PO 17 gm DAILY FAITH Administration Pregabalin 75 mg 01/02/21 16:41 01/07/21 09:21 Pregabalin 25 Mg Capsule PO 75 mg DAILY FAITH Administration Sodium Chloride 10 ml 01/02/21 01:00 01/07/21 09:26 Sodium Chloride Flush 0.9% 10 Ml Syringe IVP 10 ml 0100,0900,1700 FAITH Administration - Lab Result Fish Bone Diagrams: 01/03/21 11:20 01/07/21 05:56 - Additional Planning My Orders: My Active Orders 01/07/21 09:00 Losartan [Cozaar] 50 mg PO DAILY Subjective - Subjective Patient Reports: Feeling Better Objective Vital Signs: Vital Signs - 24 hr 09/15/21 09/15/21 09/15/21 16:04 20:52 22:19 Temperature 36.5 C 37.0 C Heart Rate [ 66 84 Brachial] Respiratory 22 16 Rate Blood Pressure [Left Brachial artery] Blood Pressure 139/73 H [Left Radial artery] Blood Pressure 161/83 H 161/79 H [Right Brachial artery] O2 Saturation 93 94 01/07/21 01/07/21 01/07/21 01:14 05:53 06:53 Temperature 36.5 C 36.2 C L Heart Rate [ 70 61 61 Brachial] Respiratory 20 18 Rate Blood Pressure 164/81 H [Left Brachial artery] Blood Pressure [Left Radial artery] Blood Pressure 152/85 H 165/76 H [Right Brachial artery] O2 Saturation 93 92 01/07/21 08:21 Temperature 36.1 C L Heart Rate [ 60 Brachial] Respiratory 18 Rate Blood Pressure [Left Brachial artery] Blood Pressure 140/73 H [Left Radial artery] Blood Pressure [Right Brachial artery] O2 Saturation 94 Oxygen O2 Source Room air I&O (Last 24 Hrs): Intake and Output Totals x24h 01/05/21 01/06/21 01/07/21 23:59 23:59 23:59 Intake Total 1260 2866.385 680 Output Total 1050 1425 Balance 210 1441.385 680 General: Alert, Oriented x3, Cooperative, No acute distress HEENT: Atraumatic Neck: Supple Lymphatic: no adenopathy Neuro: Alert, Non Focal, Oriented Times 3 Cardiovascular: Regular rate, Normal S1, Normal S2 Respiratory: Chest non-tender, No respiratory distress Abdomen: Normal bowel sounds, Soft Extremities: No edema - Results Results: Laboratory Results WBC 8.3 x10^3/uL (4.8-10.8) 01/03/21 11:20 RBC 4.39 10^6/uL (4.70-6.10) L 01/03/21 11:20 Hgb 14.5 g/dL (14.0-18.0) 01/03/21 11:20 Hct 44.6 % (42.0-52.0) 01/03/21 11:20 MCV 101.6 fL (80.0-94.0) H 01/03/21 11:20 MCH 33.0 pg (27.0-31.0) H 01/03/21 11:20 MCHC 32.5 g/dL (32.0-36.0) 01/03/21 11:20 RDW 13.4 % (12.0-15.0) 01/03/21 11:20 Plt Count 155 10^3/uL (130-450) 01/03/21 11:20 MPV 11.6 fL (7.4-11.4) H 01/03/21 11:20 Neut # (Auto) 5.4 10^3/uL (1.5-6.6) 01/03/21 11:20 Lymph # (Auto) 1.6 10^3/uL (1.5-3.5) 01/03/21 11:20 [place] # (Auto) 0.7 10^3/uL (0.0-1.0) 01/03/21 11:20 Eos # (Auto) 0.5 10^3/uL (0.0-0.7) 01/03/21 11:20 Baso # (Auto) 0.1 10^3/uL (0.0-0.1) 01/03/21 11:20 Absolute Nucleated RBC 0.00 x10^3/uL 01/03/21 11:20 Nucleated RBC % 0.0 /100WBC 01/03/21 11:20 PT 13.8 secs (9.9-12.6) H 12/31/20 21:41 INR 1.2 (0.8-1.2) 12/31/20 21:41 Sodium 137 mmol/L (135-145) 01/07/21 05:56 Potassium 4.2 mmol/L (3.5-5.0) 01/07/21 05:56 Chloride 104 mmol/L (101-111) 01/07/21 05:56 Carbon Dioxide 25 mmol/L (21-32) 01/07/21 05:56 Anion Gap 8.0 (6-13) 01/07/21 05:56 BUN 26 mg/dL (6-20) H 01/07/21 05:56 Creatinine 1.1 mg/dL (0.6-1.2) 01/07/21 05:56 Estimated GFR (MDRD) 64 (>89) L 01/07/21 05:56 Glucose 137 mg/dL (70-100) H 01/07/21 05:56 POC Whole Bld Glucose 139 mg/dL (70 - 100) H 01/07/21 08:05 Estimat Average Glucose 206 mg/dL (70-100) H 01/01/21 19:47 Hemoglobin A1c % 8.8 % (4.27-6.07) H 01/01/21 19:47 Calcium 8.6 mg/dL (8.5-10.3) 01/07/21 05:56 Total Bilirubin 0.8 mg/dL (0.2-1.0) 12/31/20 21:41 AST 18 IU/L (10-42) 12/31/20 21:41 ALT 19 IU/L (10-60) 12/31/20 21:41 Alkaline Phosphatase 76 IU/L (42-121) 12/31/20 21:41 Ammonia 17.0 umol/L (7-35) 01/01/21 19:47 Total Protein 7.1 g/dL (6.7-8.2) 12/31/20 21:41 Albumin 3.3 g/dL (3.2-5.5) 12/31/20 21:41 Globulin 3.8 g/dL (2.1-4.2) 12/31/20 21:41 Albumin/Globulin Ratio 0.9 (1.0-2.2) L 12/31/20 21:41 Lipase 30 U/L (22-51) 12/31/20 21:41 TSH 3.22 uIU/mL (0.34-5.60) 01/01/21 19:47 Urine Color YELLOW 01/02/21 01:25 Urine Clarity CLEAR (CLEAR) 01/02/21 01:25 Urine pH 6.0 PH (5.0-7.5) 01/02/21 01:25 Ur Specific [place] 1.015 (1.002-1.030) 01/02/21 01:25 Urine Protein NEGATIVE mg/dL (NEGATIVE) 01/02/21 01:25 Urine Glucose (UA) >=1000 mg/dL (NEGATIVE) H 01/02/21 01:25 Urine Ketones NEGATIVE mg/dL (NEGATIVE) 01/02/21 01:25 Urine Occult Blood TRACE-LYSE (NEGATIVE) 01/02/21 01:25 Urine Nitrite NEGATIVE (NEGATIVE) 01/02/21 01:25 Urine Bilirubin NEGATIVE (NEGATIVE) 01/02/21 01:25 Urine Urobilinogen 0.2 (NORMAL) E.U./dL (NORMAL) 01/02/21 01:25 Ur Leukocyte Esterase NEGATIVE (NEGATIVE) 01/02/21 01:25 Urine RBC 0-5 /HPF (0-5) 01/02/21 01:25 Urine WBC 0-3 /HPF (0-3) 01/02/21 01:25 Ur Squamous Epith Cells NONE SEEN (<= Few) 01/02/21 01:25 Urine Bacteria None Seen /HPF (None Seen) 01/02/21 01:25 Urine Culture Comments NOT INDICATED 01/02/21 01:25 Nasal Adenovirus (PCR) NOT DETECTED 01/05/21 20:45 Nasal B. parapertussis DNA (PCR) NOT DETECTED 01/05/21 20:45 Nasal Coronavir 229E PCR NOT DETECTED 01/05/21 20:45 Nasal Coronavir HKU1 PCR NOT DETECTED 01/05/21 20:45 Nasal Coronavir NL63 PCR NOT DETECTED 01/05/21 20:45 Nasal Coronavir OC43 PCR NOT DETECTED 01/05/21 20:45 Nasal Enterovir/Rhinovir PCR NOT DETECTED 01/05/21 20:45 Nasal Influenza B PCR NOT DETECTED 01/05/21 20:45 Nasal Influenza A PCR NOT DETECTED 01/05/21 20:45 Nasal Parainfluen 1 PCR NOT DETECTED 01/05/21 20:45 Nasal Parainfluen 2 PCR NOT DETECTED 01/05/21 20:45 Nasal Parainfluen 3 PCR NOT DETECTED 01/05/21 20:45 Nasal Parainfluen 4 PCR NOT DETECTED 01/05/21 20:45 Nasal RSV (PCR) NOT DETECTED 01/05/21 20:45 Nasal B.pertussis DNA PCR NOT DETECTED 01/05/21 20:45 Nasal C.pneumoniae (PCR) NOT DETECTED 01/05/21 20:45 Justino Human Metapneumo PCR NOT DETECTED 01/05/21 20:45 Nasal M.pneumoniae (PCR) NOT DETECTED 01/05/21 20:45 Nasal SARS-CoV-2 (PCR) DETECTED A 01/05/21 20:45 ABX Reporting Has patient been on IV antibiotics over the past 48 hours?: No Current Medications - Current Medications Current Medications: Active Medications Acetaminophen (Acetaminophen 325 Mg Tablet) 650 mg PO Q4HR PRN PRN Reason: Pain 1 to 4 Last Admin: 01/07/21 06:55 Dose: 650 mg Documented by: Hydrocodone Bitart/Acetaminophen (Hydrocod/Acetam 5/325 Mg Tablet) 1 tab PO Q4HR PRN PRN Reason: Pain 5 to 7 Allopurinol (Allopurinol 100 Mg Tablet) 200 mg PO DAILY [facility] Last Admin: 01/07/21 09:20 Dose: 200 mg Documented by: Aspirin (Aspirin 325 Mg Tablet) 325 mg PO DAILY [facility] Last Admin: 01/07/21 09:20 Dose: 325 mg Documented by: Atorvastatin Calcium (Atorvastatin 10 Mg Tablet) 10 mg PO QPM [facility] Last Admin: 01/06/21 22:12 Dose: 10 mg Documented by: Carvedilol (Carvedilol 3.125 Mg Tablet) 6.25 mg PO BID [facility] Last Admin: 01/07/21 09:21 Dose: 6.25 mg Documented by: Gabapentin (Gabapentin 300 Mg Capsule) 900 mg PO QPM [facility] Last Admin: 01/06/21 22:11 Dose: 900 mg Documented by: Heparin Sodium (Porcine) (Heparin 5,000 Unit/Ml Vial) 5,000 unit SUBQ BID [facility] Last Admin: 01/07/21 10:37 Dose: 5,000 unit Documented by: Insulin Aspart (Insulin Aspart 300 Unit/3 Ml Pen) 3 - 11 unit SUBQ 0800,1200,1700,2100 [facility]; Protocol Last Admin: 01/07/21 08:22 Dose: Not Given Documented by: Insulin Human Isoph/Insulin Regular (Insulin 70/30 Human 300 Unit/3 Ml Vial) 35 unit SUBQ BIDWM [facility] Last Admin: 01/07/21 09:17 Dose: 35 unit Documented by: Levothyroxine Sodium (Levothyroxine 100 Mcg Tablet) 100 mcg PO QDAC [facility] Last Admin: 01/07/21 06:55 Dose: 100 mcg Documented by: Losartan Potassium (Losartan 50 Mg Tablet) 50 mg PO DAILY [facility] Last Admin: 01/07/21 10:37 Dose: 50 mg Documented by: Morphine Sulfate (Morphine 2 Mg/Ml Carpuject) 2 mg IVP Q8HR PRN PRN Reason: Pain 8 to 10 Ondansetron HCl (Ondansetron 4 Mg/2 Ml Vial) 4 mg IVP Q6HR PRN PRN Reason: Nausea / Vomiting Polyethylene Glycol (Polyethylene Glycol 3350 17 Gm Packet) 17 gm PO DAILY [facility] Last Admin: 01/07/21 09:21 Dose: 17 gm Documented by: Pregabalin (Pregabalin 25 Mg Capsule) 75 mg PO DAILY [facility] Last Admin: 01/07/21 09:21 Dose: 75 mg Documented by: Sodium Chloride (Sodium Chloride Flush 0.9% 10 Ml Syringe) 10 ml IVP PRN PRN PRN Reason: NEEDED PER PROVIDER ORDERS Sodium Chloride (Sodium Chloride Flush 0.9% 10 Ml Syringe) 10 ml IVP 0100,0900,1700 [facility] Last Admin: 01/07/21 09:26 Dose: 10 ml Documented by: Aspirin 325 mg PO DAILY 09/09/16 Furosemide [Lasix] 80 mg PO DAILY 09/09/16 Insulin NPH Hum/Reg Insulin Hm [Humulin 70/30 Kwikpen] 50 unit SQ BIDWM 09/09/16 Levothyroxine Sodium 100 mcg PO QDBREAKFAST 09/09/16 Lovastatin 20 mg PO QPM 09/09/16 Gridley-3/Dha/Epa/Fish Oil [Gridley 3 500 Softgel] 1 each PO DAILY 09/09/16 Potassium Chloride 40 meq PO DAILYWM 09/09/16 Pregabalin [Lyrica] 675 mg PO DAILY 09/09/16 Carvedilol 6.25 mg PO BID 12/03/18 Gabapentin 900 mg PO QPM 12/03/18 Telmisartan 80 mg PO DAILY 12/31/20 allopurinoL [Zyloprim] 200 mg PO DAILY 12/31/20 Montelukast [Singulair] 10 mg PO QPM 01/02/21
[2021-01-07] MEDS: GABAPENTIN 300 MG CAPSULE PO SCH (21:19)
[2021-01-07] MEDS: ATORVASTATIN 10 MG TABLET PO SCH (21:20)
[2021-01-08] MEDS: SODIUM CHLORIDE FLUSH 0.9% 10 ML SYRINGE IVP SCH ×3 (00:47→17:11)
[2021-01-08] MEDS ORDERED: ZINC OXIDE 20% OINT 30 GM TUBE TOP PRN (02:34)
[2021-01-08] MEDS: LEVOTHYROXINE 100 MCG TABLET PO SCH (06:07)
[2021-01-08] MEDS: INSULIN 70/30 HUMAN 300 UNIT/3 ML VIAL SUBQ SCH ×2 (08:28→17:11)
[2021-01-08] MEDS: INSULIN ASPART 300 UNIT/3 ML PEN SUBQ SCH ×4 (08:30→22:11)
[2021-01-08] MEDS: HEPARIN 5,000 UNIT/ML VIAL SUBQ SCH ×2 (10:43→22:11)
--- NOTE | 2021-01-08 10:48 | PROVIDER PROGRESS NOTE ---
Assessment/Plan - Problem List (1) Closed right acetabular fracture Qualifiers: Encounter type: subsequent encounter Sublocation of acetabulum: unspecified portion of acetabulum Fracture alignment: nondisplaced Assessment/Plan: 01/08 pt denies pain and feel comfortable, Continue PT and OT, consult licensed social worker for replacement. 01/07 pt feel comfort, her right lower extremity pain is in the good control. Continue PT and OT, consult licensed social worker for replacement. 01/06 Patient reported he had a good Pain control. Continue PT and OT, follow up with ortho recommendation. Continue consult with social work for replacement pt has fairly good pain control, continue PT/OT, continue consult with SW for replacement. Orthopedics's recommendations are for once a week x-rays of that hip to monitor the progress. toe-touch only weight-bearing is recommended as well. (2) Falls frequently 01/08 before yesterday orthostatic check pt has no orthostatic hypotension. but today it is positive orthostatic hypotension. hold BP meds, gently IVF, fall precaution, continue PT/OT, continue Quinn hose. 01/06 Patient's orthostatic hypotension resolved. Continue fall precaution. pt has positive orthostatic hypotension vital signs, add IVF and quinn hose. fall prevention measure. continue PT/OT He needs placement for PT rehab and then long-term nursing care probably (3) COVID-19 Assessment/Plan: 01/08 no respiratory symptoms, no respiratory distress. he is Hemodynamically stable. 01/07 pt has no respiratory distress and Hemodynamically stable. 01/06 pt's believe it be false positive test of Covid 19 but Repeated COVID- 19 testing is still positive, patient is asymptomatic He has no GI or respiratory symptoms. Droplet isolation continues. There is difficulty to find him a SNF that except for Covid positive patient. (4) HTN (hypertension) Assessment/Plan: 01/07, slight elevated BP, resume home Losartan BP is stable on his current meds and management (5) BANDAR (acute kidney injury) Assessment/Plan: resolved. Creatinine is 1.1 (6) DM (diabetes mellitus) Assessment/Plan: Continue with CC diet, continue insulin coverage and increase slide scale dosage due to elevated glucose. 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 - Current Meds Current Meds: Current Medications Generic Name Dose Route Start Last Admin Trade Name Freq PRN Reason Stop Dose Admin Acetaminophen 650 mg 01/01/21 19:42 01/07/21 06:55 Acetaminophen 325 Mg Tablet PO 650 mg Q4HR PRN Administration Pain 1 to 4 Allopurinol 200 mg 01/02/21 14:00 01/07/21 09:20 Allopurinol 100 Mg Tablet PO 200 mg DAILY FAITH Administration Aspirin 325 mg 01/02/21 09:00 01/07/21 09:20 Aspirin 325 Mg Tablet PO 325 mg DAILY FAITH Administration Atorvastatin Calcium 10 mg 01/01/21 21:00 01/07/21 21:20 Atorvastatin 10 Mg Tablet PO 10 mg QPM FAITH Administration Carvedilol 6.25 mg 01/03/21 09:00 01/07/21 21:19 Carvedilol 3.125 Mg Tablet PO 6.25 mg BID FAITH Administration Gabapentin 900 mg 01/02/21 16:40 01/07/21 21:19 Gabapentin 300 Mg Capsule PO 900 mg QPM FAITH Administration Heparin Sodium (Porcine) 5,000 unit 01/01/21 21:00 01/08/21 10:43 Heparin 5,000 Unit/Ml Vial SUBQ 5,000 unit BID FAITH Administration Insulin Aspart 3 - 11 unit 01/05/21 12:00 01/08/21 08:30 Insulin Aspart 300 Unit/3 Ml Pen SUBQ Not Given 0800,1200,1700,2100 [facility] Protocol Insulin Human Isoph/Insulin Regular 35 unit 01/02/21 08:00 01/08/21 08:28 Insulin 70/30 Human 300 Unit/3 Ml Vial SUBQ 35 unit BIDWM FAITH Administration Levothyroxine Sodium 100 mcg 01/02/21 07:00 01/08/21 06:07 Levothyroxine 100 Mcg Tablet PO 100 mcg QDAC FAITH Administration Multi-Ingredient Ointment 1 applic 01/08/21 02:34 01/08/21 06:29 Zinc Oxide 20% Oint 30 Gm Tube TOP 1 med.swab PRN PRN Administration Skin Care Polyethylene Glycol 17 gm 01/03/21 11:00 01/07/21 09:21 Polyethylene Glycol 3350 17 Gm Packet PO 17 gm DAILY FAITH Administration Pregabalin 75 mg 01/02/21 16:41 01/07/21 09:21 Pregabalin 25 Mg Capsule PO 75 mg DAILY FAITH Administration Sodium Chloride 10 ml 01/02/21 01:00 01/08/21 00:47 Sodium Chloride Flush 0.9% 10 Ml Syringe IVP 10 ml 0100,0900,1700 [facility] Administration - Lab Result Fish Bone Diagrams: 01/03/21 11:20 01/07/21 05:56 - Additional Planning My Orders: My Active Orders 01/08/21 11:00 NS 0.9% @ 83.333 mls/hr Sodium Chloride 0.9% [Normal Saline 0.9%] 1,000 ml IV 83.333 mls/hr Subjective - Subjective Patient Reports: Feeling Better Objective Vital Signs: Vital Signs - 24 hr 01/07/21 01/07/21 01/07/21 11:49 16:53 20:22 Temperature 36.8 C 36.4 C L 36.5 C Heart Rate [ 61 66 63 Brachial] Heart Rate [ Monitoring electrodes] Respiratory 18 20 18 Rate Blood Pressure 123/53 L 120/68 186/90 H [Right Brachial artery] Blood Pressure 174/88 H [Right Radial artery] O2 Saturation 94 96 94 01/07/21 01/08/21 01/08/21 21:18 00:38 00:52 Temperature 36.4 C L Heart Rate [ 68 101 H 63 Brachial] Heart Rate [ 101 H Monitoring electrodes] Respiratory 16 Rate Blood Pressure 151/75 H [Right Brachial artery] Blood Pressure 154/79 H 162/81 H [Right Radial artery] O2 Saturation 92 01/08/21 01/08/21 05:00 08:15 Temperature 36.4 C L 36.3 C L Heart Rate [ 70 Brachial] Heart Rate [ Monitoring electrodes] Respiratory 16 20 Rate Blood Pressure 150/84 H [Right Brachial artery] Blood Pressure 101/79 [Right Radial artery] O2 Saturation 91 L 93 Oxygen O2 Source Room air I&O (Last 24 Hrs): Intake and Output Totals x24h 01/06/21 01/07/21 01/08/21 23:59 23:59 23:59 Intake Total 2866.385 1480 530 Output Total 4529 870 6936 Balance 8995.326 7643 -745 General: Alert, Oriented x3, Cooperative, No acute distress HEENT: Atraumatic, PERRLA Neck: Supple Lymphatic: no adenopathy Neuro: Alert, Non Focal, Oriented Times 3 Cardiovascular: Regular rate, Normal S1, Normal S2 Respiratory: Chest non-tender, No respiratory distress Abdomen: Normal bowel sounds, Soft, No tenderness Extremities: Normal pulses - Results Results: Laboratory Results WBC 8.3 x10^3/uL (4.8-10.8) 01/03/21 11:20 RBC 4.39 10^6/uL (4.70-6.10) L 01/03/21 11:20 Hgb 14.5 g/dL (14.0-18.0) 01/03/21 11:20 Hct 44.6 % (42.0-52.0) 01/03/21 11:20 MCV 101.6 fL (80.0-94.0) H 01/03/21 11:20 MCH 33.0 pg (27.0-31.0) H 01/03/21 11:20 MCHC 32.5 g/dL (32.0-36.0) 01/03/21 11:20 RDW 13.4 % (12.0-15.0) 01/03/21 11:20 Plt Count 155 10^3/uL (130-450) 01/03/21 11:20 MPV 11.6 fL (7.4-11.4) H 01/03/21 11:20 Neut # (Auto) 5.4 10^3/uL (1.5-6.6) 01/03/21 11:20 Lymph # (Auto) 1.6 10^3/uL (1.5-3.5) 01/03/21 11:20 [place] # (Auto) 0.7 10^3/uL (0.0-1.0) 01/03/21 11:20 Eos # (Auto) 0.5 10^3/uL (0.0-0.7) 01/03/21 11:20 Baso # (Auto) 0.1 10^3/uL (0.0-0.1) 01/03/21 11:20 Absolute Nucleated RBC 0.00 x10^3/uL 01/03/21 11:20 Nucleated RBC % 0.0 /100WBC 01/03/21 11:20 PT 13.8 secs (9.9-12.6) H 12/31/20 21:41 INR 1.2 (0.8-1.2) 12/31/20 21:41 Sodium 137 mmol/L (135-145) 01/07/21 05:56 Potassium 4.2 mmol/L (3.5-5.0) 01/07/21 05:56 Chloride 104 mmol/L (101-111) 01/07/21 05:56 Carbon Dioxide 25 mmol/L (21-32) 01/07/21 05:56 Anion Gap 8.0 (6-13) 01/07/21 05:56 BUN 26 mg/dL (6-20) H 01/07/21 05:56 Creatinine 1.1 mg/dL (0.6-1.2) 01/07/21 05:56 Estimated GFR (MDRD) 64 (>89) L 01/07/21 05:56 Glucose 137 mg/dL (70-100) H 01/07/21 05:56 POC Whole Bld Glucose 131 mg/dL (70 - 100) H 01/08/21 08:14 Estimat Average Glucose 206 mg/dL (70-100) H 01/01/21 19:47 Hemoglobin A1c % 8.8 % (4.27-6.07) H 01/01/21 19:47 Calcium 8.6 mg/dL (8.5-10.3) 01/07/21 05:56 Total Bilirubin 0.8 mg/dL (0.2-1.0) 12/31/20 21:41 AST 18 IU/L (10-42) 12/31/20 21:41 ALT 19 IU/L (10-60) 12/31/20 21:41 Alkaline Phosphatase 76 IU/L (42-121) 12/31/20 21:41 Ammonia 17.0 umol/L (7-35) 01/01/21 19:47 Total Protein 7.1 g/dL (6.7-8.2) 12/31/20 21:41 Albumin 3.3 g/dL (3.2-5.5) 12/31/20 21:41 Globulin 3.8 g/dL (2.1-4.2) 12/31/20 21:41 Albumin/Globulin Ratio 0.9 (1.0-2.2) L 12/31/20 21:41 Lipase 30 U/L (22-51) 12/31/20 21:41 TSH 3.22 uIU/mL (0.34-5.60) 01/01/21 19:47 Urine Color YELLOW 01/02/21 01:25 Urine Clarity CLEAR (CLEAR) 01/02/21 01:25 Urine pH 6.0 PH (5.0-7.5) 01/02/21 01:25 Ur Specific [place] 1.015 (1.002-1.030) 01/02/21 01:25 Urine Protein NEGATIVE mg/dL (NEGATIVE) 01/02/21 01:25 Urine Glucose (UA) >=1000 mg/dL (NEGATIVE) H 01/02/21 01:25 Urine Ketones NEGATIVE mg/dL (NEGATIVE) 01/02/21 01:25 Urine Occult Blood TRACE-LYSE (NEGATIVE) 01/02/21 01:25 Urine Nitrite NEGATIVE (NEGATIVE) 01/02/21 01:25 Urine Bilirubin NEGATIVE (NEGATIVE) 01/02/21 01:25 Urine Urobilinogen 0.2 (NORMAL) E.U./dL (NORMAL) 01/02/21 01:25 Ur Leukocyte Esterase NEGATIVE (NEGATIVE) 01/02/21 01:25 Urine RBC 0-5 /HPF (0-5) 01/02/21 01:25 Urine WBC 0-3 /HPF (0-3) 01/02/21 01:25 Ur Squamous Epith Cells NONE SEEN (<= Few) 01/02/21 01:25 Urine Bacteria None Seen /HPF (None Seen) 01/02/21 01:25 Urine Culture Comments NOT INDICATED 01/02/21 01:25 Nasal Adenovirus (PCR) NOT DETECTED 01/05/21 20:45 Nasal B. parapertussis DNA (PCR) NOT DETECTED 01/05/21 20:45 Nasal Coronavir 229E PCR NOT DETECTED 01/05/21 20:45 Nasal Coronavir HKU1 PCR NOT DETECTED 01/05/21 20:45 Nasal Coronavir NL63 PCR NOT DETECTED 01/05/21 20:45 Nasal Coronavir OC43 PCR NOT DETECTED 01/05/21 20:45 Nasal Enterovir/Rhinovir PCR NOT DETECTED 01/05/21 20:45 Nasal Influenza B PCR NOT DETECTED 01/05/21 20:45 Nasal Influenza A PCR NOT DETECTED 01/05/21 20:45 Nasal Parainfluen 1 PCR NOT DETECTED 01/05/21 20:45 Nasal Parainfluen 2 PCR NOT DETECTED 01/05/21 20:45 Nasal Parainfluen 3 PCR NOT DETECTED 01/05/21 20:45 Nasal Parainfluen 4 PCR NOT DETECTED 01/05/21 20:45 Nasal RSV (PCR) NOT DETECTED 01/05/21 20:45 Nasal B.pertussis DNA PCR NOT DETECTED 01/05/21 20:45 Nasal C.pneumoniae (PCR) NOT DETECTED 01/05/21 20:45 Justino Human Metapneumo PCR NOT DETECTED 01/05/21 20:45 Nasal M.pneumoniae (PCR) NOT DETECTED 01/05/21 20:45 Nasal SARS-CoV-2 (PCR) DETECTED A 01/05/21 20:45 ABX Reporting Has patient been on IV antibiotics over the past 48 hours?: No Current Medications - Current Medications Current Medications: Active Medications Acetaminophen (Acetaminophen 325 Mg Tablet) 650 mg PO Q4HR PRN PRN Reason: Pain 1 to 4 Last Admin: 01/07/21 06:55 Dose: 650 mg Documented by: Hydrocodone Bitart/Acetaminophen (Hydrocod/Acetam 5/325 Mg Tablet) 1 tab PO Q4HR PRN PRN Reason: Pain 5 to 7 Allopurinol (Allopurinol 100 Mg Tablet) 200 mg PO DAILY [facility] Last Admin: 01/07/21 09:20 Dose: 200 mg Documented by: Aspirin (Aspirin 325 Mg Tablet) 325 mg PO DAILY [facility] Last Admin: 01/07/21 09:20 Dose: 325 mg Documented by: Atorvastatin Calcium (Atorvastatin 10 Mg Tablet) 10 mg PO QPM [facility] Last Admin: 01/07/21 21:20 Dose: 10 mg Documented by: Carvedilol (Carvedilol 3.125 Mg Tablet) 6.25 mg PO BID [facility] Last Admin: 01/07/21 21:19 Dose: 6.25 mg Documented by: Gabapentin (Gabapentin 300 Mg Capsule) 900 mg PO QPM [facility] Last Admin: 01/07/21 21:19 Dose: 900 mg Documented by: Heparin Sodium (Porcine) (Heparin 5,000 Unit/Ml Vial) 5,000 unit SUBQ BID [facility] Last Admin: 01/08/21 10:43 Dose: 5,000 unit Documented by: Sodium Chloride (Normal Saline 0.9%) 1,000 mls @ 83.333 mls/hr IV .Q12H [facility] Stop: 01/09/21 10:59 Insulin Aspart (Insulin Aspart 300 Unit/3 Ml Pen) 3 - 11 unit SUBQ 0800,1200,1700,2100 [facility]; Protocol Last Admin: 01/08/21 08:30 Dose: Not Given Documented by: Insulin Human Isoph/Insulin Regular (Insulin 70/30 Human 300 Unit/3 Ml Vial) 35 unit SUBQ BIDWM [facility] Last Admin: 01/08/21 08:28 Dose: 35 unit Documented by: Levothyroxine Sodium (Levothyroxine 100 Mcg Tablet) 100 mcg PO QDAC [facility] Last Admin: 01/08/21 06:07 Dose: 100 mcg Documented by: Morphine Sulfate (Morphine 2 Mg/Ml Carpuject) 2 mg IVP Q8HR PRN PRN Reason: Pain 8 to 10 Multi-Ingredient Ointment (Zinc Oxide 20% Oint 30 Gm Tube) 1 applic TOP PRN PRN PRN Reason: Skin Care Last Admin: 01/08/21 06:29 Dose: 1 med.swab Documented by: Ondansetron HCl (Ondansetron 4 Mg/2 Ml Vial) 4 mg IVP Q6HR PRN PRN Reason: Nausea / Vomiting Polyethylene Glycol (Polyethylene Glycol 3350 17 Gm Packet) 17 gm PO DAILY [facility] Last Admin: 01/07/21 09:21 Dose: 17 gm Documented by: Pregabalin (Pregabalin 25 Mg Capsule) 75 mg PO DAILY [facility] Last Admin: 01/07/21 09:21 Dose: 75 mg Documented by: Sodium Chloride (Sodium Chloride Flush 0.9% 10 Ml Syringe) 10 ml IVP PRN PRN PRN Reason: NEEDED PER PROVIDER ORDERS Sodium Chloride (Sodium Chloride Flush 0.9% 10 Ml Syringe) 10 ml IVP 0100,0900,1700 [facility] Last Admin: 01/08/21 00:47 Dose: 10 ml Documented by: Aspirin 325 mg PO DAILY 09/09/16 Furosemide [Lasix] 80 mg PO DAILY 09/09/16 Insulin NPH Hum/Reg Insulin Hm [Humulin 70/30 Kwikpen] 50 unit SQ BIDWM 09/09/16 Levothyroxine Sodium 100 mcg PO QDBREAKFAST 09/09/16 Lovastatin 20 mg PO QPM 09/09/16 [place]-3/Dha/Epa/Fish Oil [[place] 3 500 Softgel] 1 each PO DAILY 09/09/16 Potassium Chloride 40 meq PO DAILYWM 09/09/16 Pregabalin [Lyrica] 675 mg PO DAILY 09/09/16 Carvedilol 6.25 mg PO BID 12/03/18 Gabapentin 900 mg PO QPM 12/03/18 Telmisartan 80 mg PO DAILY 12/31/20 allopurinoL [Zyloprim] 200 mg PO DAILY 12/31/20 Montelukast [Singulair] 10 mg PO QPM 01/02/21
[2021-01-08] MEDS: carvediloL 3.125 MG TABLET PO SCH ×2 (10:55→22:08)
[2021-01-08] MEDS: PREGABALIN 25 MG CAPSULE PO SCH (10:57)
[2021-01-08] MEDS: ASPIRIN 325 MG TABLET PO SCH (10:57)
[2021-01-08] MEDS: allopurinoL 100 MG TABLET PO SCH (10:58)
[2021-01-08] MEDS: polyethylene glycoL 3350 17 GM PACKET PO SCH (11:02)
[2021-01-08] MEDS: SODIUM CHLORIDE 0.9% 1,000 ML IV SCH ×2 (11:07→22:55)
[2021-01-08] MEDS: GABAPENTIN 300 MG CAPSULE PO SCH (22:10)
[2021-01-08] MEDS: ATORVASTATIN 10 MG TABLET PO SCH (22:10)
[2021-01-09] MEDS: SODIUM CHLORIDE FLUSH 0.9% 10 ML SYRINGE IVP SCH ×3 (00:08→17:09)
[2021-01-09] MEDS: LEVOTHYROXINE 100 MCG TABLET PO SCH (06:01)
[2021-01-09] MEDS: INSULIN ASPART 300 UNIT/3 ML PEN SUBQ SCH ×6 (09:45→21:48)
[2021-01-09] MEDS: INSULIN 70/30 HUMAN 300 UNIT/3 ML VIAL SUBQ SCH ×2 (10:20→17:07)
[2021-01-09] MEDS: ASPIRIN 325 MG TABLET PO SCH (10:23)
[2021-01-09] MEDS: allopurinoL 100 MG TABLET PO SCH (10:23)
[2021-01-09] MEDS: carvediloL 3.125 MG TABLET PO SCH ×2 (10:24→21:46)
[2021-01-09] MEDS: HEPARIN 5,000 UNIT/ML VIAL SUBQ SCH ×2 (10:25→21:47)
[2021-01-09] MEDS: polyethylene glycoL 3350 17 GM PACKET PO SCH (10:26)
[2021-01-09] MEDS: PREGABALIN 25 MG CAPSULE PO SCH (10:26)
--- NOTE | 2021-01-09 11:03 | PROVIDER PROGRESS NOTE ---
Progress Note Nonbillable rounding note. He is an 80-year-old white male who is awaiting placement. He has dyslipidemia, hypothyroidism, diabetes, hypertension and a history of TIAs with a [employer] shunt in place for hydrocephalus. He has frequent falls. Walks with a walker, lives in his own home with his . He fell on the afternoon of December 31. No loss of consciousness prior to this. It was a mechanical fall where he lost his balance. He was sent by ambulance to the emergency room we had an extended stay of over 20 hours. He was initially dehydrated and received IV fluids, had some hyperglycemia which improved with therapy. X-ray showed him to have a subacute acetabular fracture. He is not a surgical candidate however he is to be nonweightbearing for [address] of head is negative. Left internal carotid has 40% stenosis. Chest x-ray has bilateral infiltrates improving from a previous x-ray on December 23. Covid test was positive. Patient has been vaccinated. In review of the chart the patient has been on room air throughout his stay. He is saturating at 93 to 95%. Respirations are 18. Blood pressures vary between 1 49-176 systolic. He has been afebrile. Medications are Tylenol as needed, [place] as needed, allopurinol, aspirin, Lipitor, Coreg, Neurontin, heparin for DVT prophylaxis, NovoLog sliding scale, 7030 NPH/regular, Synthroid, morphine as needed, zinc oxide cream, Zofran as needed, Lyrica. This morning his temperature is 36.9. Pulse is 72. Respirations 18. He is sitting upright in a chair with a blood pressure of 153/99. He is alert and oriented to person and place but not the date. He is pleasant, watching TV. Lowers the volume so that he can hear me speaking to them. Neck is supple. Lungs are clear to auscultation and percussion. He has a regular rate and rhythm with a soft systolic ejection murmur. The abdomen is soft, nontender. He is eating 100% of his meals. Review of his glucose shows him to be high midday in a range of 204-223. In the morning and in the evening he is 113 or up to 144. Assessment/plan 1. Closed right acetabular fracture. Being followed by physical therapy and we are following orthopedic recommendations. Toe-touch only for weightbearing. He is to get an x-ray once a week. Yesterday would have been the x-ray today, and will order it for today. Plan is for him to go to assisted facility because he not able to go home with the care of his . He will need to be out of Covid isolation for him to do that. We believe that would be next Monday (today is Monday) 2. COVID-19 positive status. He has not had any symptoms, no respiratory distress. Repeat Covid testing was positive. Droplet isolation continues. Plan is to follow infection control recommendations of when he can come out of droplet precautions and isolation. 3. Frequent falls with orthostatic hypotension off and on. We continue with fall precautions. Physical therapy. Emphasis on the use of a walker at all times. 4. Hypertension. Blood pressure is slightly on the high side. He is on Coreg, and his home medication of Lasix 80, and telmisartan 80 have not been resumed. Plan: Resume ARB drug 5. Type 2 diabetes mellitus. Glucose has been controlled in the morning in the evenings but high during the day. I will add 5 units of NovoLog with each meal in addition to his 7030 NPH, sliding scale insulin.
[2021-01-09] MEDS: LOSARTAN 50 MG TABLET PO SCH (11:56)
[2021-01-09] MEDS: GABAPENTIN 300 MG CAPSULE PO SCH (21:46)
[2021-01-09] MEDS: ATORVASTATIN 10 MG TABLET PO SCH (21:46)
[2021-01-10] MEDS: SODIUM CHLORIDE FLUSH 0.9% 10 ML SYRINGE IVP SCH ×3 (00:29→17:15)
[2021-01-10] MEDS: LEVOTHYROXINE 100 MCG TABLET PO SCH (05:47)
[2021-01-10] MEDS: INSULIN ASPART 300 UNIT/3 ML PEN SUBQ SCH ×7 (08:19→20:24)
[2021-01-10] MEDS: INSULIN 70/30 HUMAN 300 UNIT/3 ML VIAL SUBQ SCH ×2 (08:28→17:13)
[2021-01-10] MEDS: polyethylene glycoL 3350 17 GM PACKET PO SCH (08:33)
[2021-01-10] MEDS: PREGABALIN 25 MG CAPSULE PO SCH (08:34)
[2021-01-10] MEDS: carvediloL 3.125 MG TABLET PO SCH ×2 (08:34→20:23)
[2021-01-10] MEDS: LOSARTAN 50 MG TABLET PO SCH (08:34)
[2021-01-10] MEDS: allopurinoL 100 MG TABLET PO SCH (08:35)
[2021-01-10] MEDS: ASPIRIN 325 MG TABLET PO SCH (08:35)
[2021-01-10] MEDS: HEPARIN 5,000 UNIT/ML VIAL SUBQ SCH ×2 (08:52→20:23)
--- NOTE | 2021-01-10 12:26 | PROVIDER PROGRESS NOTE ---
Progress Note January 10, 2021 12:21 PM No new events since yesterday's review of the chart and my visit. Vital signs are stable. Oxygenation stable. Medications are Tylenol as needed, [place] as needed, allopurinol, aspirin, Lipitor, Coreg, Neurontin, heparin for DVT prophylaxis, NovoLog sliding scale, 7030 NPH/regular, Synthroid, morphine as needed, zinc oxide cream, Zofran as needed, Lyrica. Temperature is 36.4. Pulse is 61. Blood pressure 149/83. Orthostatic vital signs show a supine blood pressure of 188/95. Sitting blood pressure 187/101. Standing blood pressure 193/96. Pulse rate with each of these respectively is 65, 70, 72. Respirations are 20 and unlabored He is 97% on room air He is a pleasant, elderly gentleman who is oriented to person place and time but can get very forgetful. Forgets what you say and have to repeated a few moments later. He is able to feed himself. Sit in his chair, run the remote control to for the most part controlled the TV. Neck is supple. Lungs are clear to auscultation and percussion. PMI normally placed with a regular rate and rhythm. Abdomen is soft, nontender. Normal bowel sounds. He has a incontinence pad and is incontinent of urine at times. His last bowel movement was today. Extremities are without edema. The right hip has bruising. Forearms and dorsum of hands have bruising. Hard of hearing, forgetful person. He was last seen by physical therapy on January 08. He declined to get up and work with her. He does benefit from physical therapy and that he has an acetabular fracture and is difficult for him to move using that right leg. Assessment/plan without change: 1. Closed right acetabular fracture. Being followed by physical therapy and we are following orthopedic recommendations. Toe-touch only for weightbearing. He is to get an x-ray once a week. Yesterday would have been the x-ray today, and will order it for today. Plan is for him to go to senior living facility because he not able to go home with the care of his . He will need to be out of Covid isolation for him to do that. We believe that would be next Monday (today is Monday) 2. COVID-19 positive status. He has not had any symptoms, no respiratory distress. Repeat Covid testing was positive. Droplet isolation continues. Plan is to follow infection control recommendations of when he can come out of droplet precautions and isolation. 3. Frequent falls with orthostatic hypotension off and on. We continue with fall precautions. Physical therapy. Emphasis on the use of a walker at all times. Today's blood pressure is elevated and without much orthostasis. 4. Hypertension. Blood pressure is slightly on the high side. He is on Coreg, and his home medication of Lasix 80, and telmisartan 80 have not been resumed. Plan: Resume ARB drug 5. Type 2 diabetes mellitus. Glucose has been controlled in the morning in the evenings but high during the day. I will add 5 units of NovoLog with each meal in addition to his 70/30 NPH, sliding scale insulin.
[2021-01-10] MEDS: ATORVASTATIN 10 MG TABLET PO SCH (20:22)
[2021-01-10] MEDS: GABAPENTIN 300 MG CAPSULE PO SCH (20:22)
[2021-01-11] MEDS: SODIUM CHLORIDE FLUSH 0.9% 10 ML SYRINGE IVP SCH ×4 (03:28→23:36)
[2021-01-11] MEDS: LEVOTHYROXINE 100 MCG TABLET PO SCH ×2 (07:10→09:06)
[2021-01-11] MEDS: INSULIN 70/30 HUMAN 300 UNIT/3 ML VIAL SUBQ SCH ×2 (08:10→17:04)
[2021-01-11] MEDS: INSULIN ASPART 300 UNIT/3 ML PEN SUBQ SCH ×6 (08:10→21:31)
[2021-01-11] MEDS: HEPARIN 5,000 UNIT/ML VIAL SUBQ SCH ×2 (08:12→21:29)
[2021-01-11] MEDS: allopurinoL 100 MG TABLET PO SCH (08:15)
[2021-01-11] MEDS: LOSARTAN 50 MG TABLET PO SCH (08:16)
[2021-01-11] MEDS: carvediloL 3.125 MG TABLET PO SCH ×2 (08:16→21:32)
[2021-01-11] MEDS: polyethylene glycoL 3350 17 GM PACKET PO SCH (08:16)
[2021-01-11] MEDS: ASPIRIN 325 MG TABLET PO SCH (08:16)
[2021-01-11] MEDS: PREGABALIN 25 MG CAPSULE PO SCH (08:17)
[2021-01-11] MEDS: ACETAMINOPHEN 325 MG TABLET PO PRN ×2 (09:06→23:33)
[2021-01-11] MEDS ORDERED: SODIUM CHLORIDE 0.9% 1,000 ML IV ONE (10:14)
--- NOTE | 2021-01-11 12:05 | PROVIDER PROGRESS NOTE ---
Progress Note January 11 2121 11:55 AM He is awaiting transfer to correction facility for rehab in view of his acetabular fracture. Blood pressure has been running high and has resumed him on his ARB drug. Yesterday his orthostatic vitals were good. Negligible orthostatic changes. However, this morning, blood pressure is still 178 systolic. His orthostatics have changed. Supine blood pressure is 152/90. Sitting blood pressure is 102/72. Standing blood pressure 85/51. With that his pulse goes from 69, then to 79, then to 121. Medications: Tylenol, [place], Zyloprim, bear, Lipitor, Tums, Coreg, vitamin D, Neurontin, heparin subcu, NovoLog insulin 5 units with meals, sliding scale NovoLog, Humulin 70/30, Synthroid, Cozaar, morphine as needed, zinc oxide, Zofran as needed, MiraLAX as needed, Lyrica was 675 yesterday and is now 75. Temperature is 36.3. Pulse is 64. Blood pressure 165/84. Orthostatics already discussed in the above history. 94% saturated on room air. Respirations are 18 This morning he was "unresponsive and not waking up". But then he abruptly turned on the call light and told the nurse that "I am awake". When I examined him he sitting upright in bed, eating breakfast, normal speech patterns for him. States that people were just waking him up too early he did not want to get up. Lungs are clear to auscultation and percussion PMI normally placed with a regular rate and rhythm Obese abdomen, soft, nontender, normal bowel sounds The right leg has edema around the ankle and calf that the left leg does not. The right leg is the affected leg. Good foot pulses. Glucose was 126, 250, 152, 166 yesterday Today he is 173 and at lunchtime 254 A/P 1. Closed right acetabular fracture. Being followed by physical therapy and we are following orthopedic recommendations. Toe-touch only for weightbearing. He is to get an x-ray once a week. I have ordered a fu xray and will review. Plan is for him to go to correction facility because he not able to go home with the care of his . He will need to be out of Covid isolation for him to do that. That will be tomorrow. 2. COVID-19 positive status. He has not had any symptoms, no respiratory distress. Repeat Covid testing was positive. Droplet isolation continues. Plan is to follow infection control recommendations of when he can come out of droplet precautions and isolation. 3. Frequent falls with orthostatic hypotension off and on. We continue with fall precautions. Physical therapy. Emphasis on the use of a walker at all times. Yesterday his blood pressure was quite elevated so I resumed an ARB. Today he has been back orthostatic again. It is a dilemma. On the and he is hypertensive, but if given blood pressure medicines he is orthostatic. Increased risk of falls. Plan: stop the ARB. risk of orthostatic BP and fall higher than risk of high BP for him. 4. Hypertension. Blood pressure is Slightly elevated when he is off blood pressure medicine. He went as high as 178 systolic. He is on Coreg. Lasix 80. I did resume the ARB but now he is back to being orthostatic again. So I will stop the ARB today and let him ride high on his blood pressure. 5. Type 2 diabetes mellitus. Glucose has been controlled in the morning in the evenings but high during the day. I added 5 units of NovoLog with each meal in addition to his 70/30 NPH, sliding scale insulin on 01/09. The highest glucose he has is lunch. Consistently on the he was 203, the 250, and today 254. Plan increase the breakfast nutritional dose to 10 units so that his lunch time glucose is <200
[2021-01-11] MEDS: CHOLECALCIFEROL 25 MCG TABLET PO SCH (12:15)
--- NOTE | 2021-01-11 13:45 | XRAY Report ---
PROCEDURE: Hip w/Pelvis 2-3V RT INDICATIONS: followup of acetabular fx TECHNIQUE: AP pelvis with lateral view(s) of the right hip(s). COMPARISON: CT lower extremity 12/31/2020, x-ray hip 12/31/2020 FINDINGS: Bones: There is subtle lucency within the right acetabulum is slightly less prominent when compared t o prior exam. No change in alignment.. Pelvic ring appears intact. No suspicious bony lesions. Soft tissues: The visualized bowel gas pattern is normal. No suspicious soft tissue calcifications. IMPRESSION: Small area of lucency at the right acetabulum is less prominent when compared to prior e xam. If concern persists, MRI is recommended Reviewed by: Brenda Pike MD on 01/11/2021 1:43 PM PDT Approved by: Brenda Pike MD on 01/11/2021 1:43 PM PDT Station ID: [id number]
[2021-01-11] MEDS ORDERED: INSULIN ASPART 300 UNIT/3 ML PEN SUBQ SCH (17:00)
[2021-01-11] MEDS: ATORVASTATIN 10 MG TABLET PO SCH (21:31)
[2021-01-11] MEDS: GABAPENTIN 300 MG CAPSULE PO SCH (21:31)
[2021-01-11] MEDS: CALCIUM CARBONATE CHEW 500 MG TABLET PO SCH (21:31)
[2021-01-12] MEDS: LEVOTHYROXINE 100 MCG TABLET PO SCH (06:41)
[2021-01-12 07:25] VITALS: BP 161/97
[2021-01-12] MEDS: HEPARIN 5,000 UNIT/ML VIAL SUBQ SCH (07:47)
[2021-01-12] MEDS: INSULIN 70/30 HUMAN 300 UNIT/3 ML VIAL SUBQ SCH (07:51)
[2021-01-12] MEDS: polyethylene glycoL 3350 17 GM PACKET PO SCH (07:52)
[2021-01-12] MEDS: INSULIN ASPART 300 UNIT/3 ML PEN SUBQ SCH (07:52)
[2021-01-12] MEDS: ACETAMINOPHEN 325 MG TABLET PO PRN (07:53)
[2021-01-12] MEDS: ASPIRIN 325 MG TABLET PO SCH (07:53)
[2021-01-12] MEDS: CALCIUM CARBONATE CHEW 500 MG TABLET PO SCH (07:53)
[2021-01-12] MEDS: CHOLECALCIFEROL 25 MCG TABLET PO SCH (07:53)
[2021-01-12] MEDS: carvediloL 3.125 MG TABLET PO SCH (07:54)
[2021-01-12] MEDS: allopurinoL 100 MG TABLET PO SCH (07:54)
[2021-01-12] MEDS: LOSARTAN 50 MG TABLET PO SCH (07:54)
[2021-01-12] MEDS: SODIUM CHLORIDE FLUSH 0.9% 10 ML SYRINGE IVP SCH (07:55)
[2021-01-12] MEDS ORDERED: INSULIN ASPART 300 UNIT/3 ML PEN SUBQ SCH ×2 (08:00→12:00)
--- NOTE | 2021-01-12 08:22 | Discharge Plan ---
"Discharge Plan for SNF / [facility] - Discharge Plan And Transition Orders Problem Reviewed?: Yes Disposition: 03 SNF DC/Xfer Allergies and Adverse Reactions: Allergies Allergy/AdvReac Type Severity Reaction Status Date / Time No Known Drug Allergies Allergy Verified 12/03/18 00:30 Health Concerns: 1, Closed right acetabular fracture. pt may continue on physical therapy and followup with orthopedic as out-pt, Toe-touch only for weightbearing. pt may get an x-ray once a week to monitor healing process. 2. COVID-19 positive status. He has not had any symptoms, no respiratory distress. Repeat Covid testing was positive. Droplet isolation continues. 3. Frequent falls with orthostatic hypotension off and on. we hold his home Lasix, continue his home meds Coreg. pt may continue PT, fall precautions. pt present the risk of fall higher than risk of high BP for him. 4. A1C is 8.8, resume home insulin schedule and add sliding scale insulin. Plan of Treatment: as above Care Goals: Stabilization and improvement of his medical conditions Assessment: Discussed the care plan with patient, answered all his questions, he understood - SNF / ASSISTED Transition Orders Admit to (Facility): [facility] Under the care of (Name): Medical provide of [facility] Discharge Diagnosis: Closed right acetabular fracture, Frequent falls, COVID-19,Hypertension, diabetic, [employer] H[employer]ITALIST(ventriculoperitoneal) shunt Medicare Certification Statement: I certify that [facility] is medically necessary on a continuing basis for any of the conditions for which she/he is receiving care during hospitalization. Notify PCP of admission and forward orders to primary provider for signature. Weight on admission and: Daily Call PCP immediately if weight increases by: 2 kg Other Notification Orders: Call PCP immediately if patient develops dyspnea, chest pain/tightness or edema. House Bowel Program: Yes Additional Bowel Program Orders: If no BM after 2 days, nurse may give M.O.M. 30ml PO PRN and/or ducolax Supp 1 [place] and/or MARIE 250mg P.O., and/or senna 1-2 tabs PO. On day 3 nurse may give repeat above order until residents constipation is resolved. Annual Influenza Vaccine (between Dec 23 and July 22): Yes Two-step PPD per [place] [id number] or approved exception documents: Yes Treatments & Other Orders: 1, Closed right acetabular fracture. pt may continue on physical therapy and followup with orthopedic as out-pt, Toe-touch only for weightbearing. pt may get an x-ray once a week to monitor healing process. 2. COVID-19 positive status. He has not had any symptoms, no respiratory distress. Repeat Covid testing was positive. Droplet isolation continues. 3. Frequent falls with orthostatic hypotension off and on. we hold his home Lasix, continue his home meds Coreg. pt may continue PT, fall precautions. pt present the risk of fall higher than risk of high BP for him. 4. A1C is 8.8, resume home insulin schedule and add sliding scale insulin. Medication Orders: PLEASE REFER TO THE DISCHARGE MEDICATION LIST. - Medications New Prescriptions: HYDROcod/ACETAM 5/325 [[place] 5/325] 1 tab PO Q4HR PRN #15 tablet PRN Reason: Pain 5 to 7 Calcium Carbonate [Tums (Calcium Carbonate 500mg)] 500 mg PO BID #30 tablet Cholecalciferol [Vitamin D3] 50 mcg PO DAILY #30 tablet - Diet Type: Geriatric Texture: Regular Liquids: Thin May have monthly special meal: Yes - Therapies | Activity Therapy: Evaluation | Treat if indicated: PT, OT Rehabilitation Potential: Maximize functional status Activity: Activity as Tolerated"
--- NOTE | 2021-01-12 08:43 | DISCHARGE SUMMARY ---
Discharge Summary Admit Date: 01/01/21 Discharge Date: 01/12/21 Discharging Provider: Zach Mendoza Primary Care Provider: Dr. Shefali Ulloa Discharge Disposition: 03 SNF DC/Xfer Discharge Facility Name: [facility] - DIAGNOSES Discharge Diagnoses with Status of Each Condition: 1. Closed right acetabular fracture. pt's pain is in the good control. pt was Being followed by physical therapy and we are following orthopedic recommendations, no surgery intervention at this time. Toe-touch only for weightbearing. He is recommended by orthopedics to get an x-ray once a week. home Aspirin 325mg can be used for DVT prophylaxis. 2. COVID-19 positive status. He has not had any symptoms, no respiratory distress. Repeat Covid testing was positive. Droplet isolation continues. 3. Frequent falls with orthostatic hypotension off and on. We continue with fall precautions. Physical therapy. Emphasis on the use of a walker at all times. plan is hold home Lasix for prevention of orthostatic hypotension, the risk of orthostatic BP and fall higher than risk of high BP for him. 4. Hypertension. continue ARB and coreg, hold Lasix, followup with PCP and medical provider of SNF to manage 5. Type 2 diabetes mellitus. A1C is 8.8, continue home insulin regimen and slide scale. - HPI History of Present Illness: refer from Dr. Carmona's 01/01/21 The patient is an 80-year-old white male with past medical history of dyslipide aleida, hypothyroidism, diabetes, hypertension and history of TIAs. He has a FILLING TECHNICIAN shunt in place, likely has history of hydrocephalus. He suffers frequent falls due to impaired balance. As baseline, he ambulates with a walker. He lives in his own home with his . He was in his usual state of health on the afternoon of December 31, he was using a walker and bent forward to feed his cat. He lost his balance, fell on his back on the right side and subsequently developed right-sided lower extremity and hip pain, therefore presented to the ER for evaluation. He denied any recent change in his health such as fever, chest pain, shortness of breath, abdominal pain or focal neurological abnormalities. He stated it was a clearly mechanical fall, there was no loss of consciousness. The patient presented to the ER on the afternoon of December 31, he had an extended ER stay over 20 hours. He was initially dehydrated and received IV fluids, was found with hyperglycemia which improved during the ER stay. He complained of right lower extremity and hip pain therefore underwent x-ray and CT scan of the right hip which showed a subacute acetabular fracture. He received consultation from orthopedic surgeon Dr. Disla,And was felt not being a surgical candidate however nonweightbearing status was recommended for 4 to [address]. [address] scan of the brain which showed no acute abnormality however a FILLING TECHNICIAN shunt in place.CT angiography of head and neck showed left ICA narrowing at about 40%.Chest x-ray showed bilateral infiltrates improving from previous x-ray taken on December 23. Covid test was positive. Patient however did not require supplemental oxygen, did not have respiratory complaints, saturated in the mid 90s on room air. Notably the patient was vaccinated for Covid. Patient was hemodynamically stable during the ER stay, although his blood pressure was elevated. Patient did not meet inpatient criteria as most of his conditions were chronic/subacute, however he was not dischargeable from the ER due to multiple medical problems, advanced age, and ambulatory dysfunction getting worse with nonoperative acetabular fracture. Patient was evaluated by social work and physical therapy, and the conclusion was that the patient would require intermediate facility placement. - HOSPITAL COURSE Hospital Course: Patient was admitted for evaluation of his falls. Patient was found to have Closed right acetabular fracture. Orthopedic surgeon was consulted, patient was not surgical candidate at this time per surgeon. Patient was recommended to have X-ray to monitor healing of process of right acetabular once per week. Continue PT and OT in the hospital. Unfortunately patient family is difficult to take care of patient at this time. Patient was recommended to discharge to SNF. Unfortunately patient also is COVID-19 positive, patient is asymptomatic for COVID-19. Because patient's COVID-19 is positive which delay to the discharge process. Patient was also found to have orthostatic hypotension on and off. Patient's home medication Lasix is on hold. Patient's creatinine is improved, patient has no respiratory distress. Patient had 95% oxygen saturation on room air. - ALLERGIES Allergies/Adverse Reactions: Allergies Allergy/AdvReac Type Severity Reaction Status Date / Time No Known Drug Allergies Allergy Verified 12/03/18 00:30 - MEDICATIONS Home Medications: Ambulatory Orders Medication Instructions Recorded Confirmed Aspirin 325 mg PO DAILY 09/09/16 12/31/20 Insulin NPH Hum/Reg Insulin Hm 50 unit SQ BIDWM 09/09/16 01/02/21 [Humulin 70/30 Kwikpen] Levothyroxine Sodium 100 mcg PO QDBREAKFAST 09/09/16 12/31/20 Lovastatin 20 mg PO QPM 09/09/16 12/31/20 [place]-3/Dha/Epa/Fish Oil [[place] 3 1 each PO DAILY 09/09/16 12/31/20 500 Softgel] Carvedilol 6.25 mg PO BID 12/03/18 01/02/21 Gabapentin 900 mg PO QPM 12/03/18 01/02/21 Telmisartan 80 mg PO DAILY 12/31/20 01/02/21 allopurinoL [Zyloprim] 200 mg PO DAILY 12/31/20 01/02/21 Montelukast [Singulair] 10 mg PO QPM 01/02/21 01/02/21 Calcium Carbonate [Tums (Calcium 500 mg PO BID #30 tablet 01/12/21 Carbonate 500mg)] Cholecalciferol [Vitamin D3] 50 mcg PO DAILY #30 tablet 01/12/21 HYDROcod/ACETAM 5/325 [[place] 5/325] 1 tab PO Q4HR PRN #15 tablet 01/12/21 - PHYSICAL EXAM AT DISCHARGE General Appearance: positive: No acute distress, Alert. negative: Lethargic Eyes Bilateral: positive: Normal inspection, PERRL, No lid inflammation ENT: positive: ENT inspection nml, No signs of dehydration. negative: Purulent nasal drainage Neck: positive: Nml inspection, Trachea midline. negative: Tracheal deviation Respiratory: positive: Chest non-tender, No respiratory distress. negative: Wheezes Cardiovascular: positive: Regular rate & rhythm, No murmur. negative: Tachycardia, Bradycardia, Systolic murmur, Diastolic murmur Peripheral Pulses: positive: 2+ Abdomen: positive: Non-tender, Nml bowel sounds. negative: Tenderness Back: positive: Nml inspection Skin: positive: Color nml, Warm, Dry. negative: Cyanosis Extremities: positive: Non-tender, Nml appearance, Other (pt has intact neurovascular exam on right lower extremity. pt has well controlled pain on his right lower extremity.). negative: Calf tenderness Neurologic/Psychiatric: positive: Oriented x3, Motor nml, Sensation nml, Mood/affect nml. negative: Weakness, Sensory loss, Facial droop, Slurred/abnml speech, Depressed mood/affect - LABS Result Diagrams: 01/03/21 11:20 01/07/21 05:56 - FOLLOW UP Follow Up: 1, Closed right acetabular fracture. pt may continue on physical therapy and followup with orthopedic as out-pt, Toe-touch only for weightbearing. pt may get an x-ray once a week to monitor healing process. 2. COVID-19 positive status. He has not had any symptoms, no respiratory distress. Repeat Covid testing was positive. Droplet isolation continues. 3. Frequent falls with orthostatic hypotension off and on. we hold his home Lasix, continue his home meds Coreg. pt may continue PT, fall precautions. pt present the risk of fall higher than risk of high BP for him. 4. A1C is 8.8, resume home insulin schedule and add sliding scale insulin. - TIME SPENT Time Spent in Discharge (Minutes): 30
== END 2021-01-12 09:34 ==
LOC: ED 21:06 → MS2 01-01 19:42
PROVIDERS: ADMIT Internal Medicine; ATTEND Nurse Practitioner Gerontology
DX: S32.401A Unspecified fracture of right acetabulum, initial encounter for closed fracture (principal); U07.1 COVID-19; Z91.81 History of falling; I95.1 Orthostatic hypotension; I10 Essential (primary) hypertension; E78.5 Hyperlipidemia, unspecified; E03.9 Hypothyroidism, unspecified; W18.39XA Other fall on same level, initial encounter; Z86.73 Personal history of transient ischemic attack (TIA), and cerebral infarction without residual deficits; Y92.009 Unspecified place in unspecified non-institutional (private) residence as the place of occurrence of the external cause; E86.0 Dehydration; E11.65 Type 2 diabetes mellitus with hyperglycemia; Z79.4 Long term (current) use of insulin; Z79.899 Other long term (current) drug therapy; Z98.2 Presence of cerebrospinal fluid drainage device; Z66 Do not resuscitate; G89.29 Other chronic pain; N17.9 Acute kidney failure, unspecified; R40.4 Transient alteration of awareness; T40.605A Adverse effect of unspecified narcotics, initial encounter; Y92.230 Patient room in hospital as the place of occurrence of the external cause; R26.89 Other abnormalities of gait and mobility
CPT/HCPCS: 36415; 51798; 70496; 70498; 71045; 73502; 73700; 80048; 80053; 81001; 82140; 83036; 83690; 84443; 85025; 85610; 87631; 93005; 96372; 97110; 97116; 97530; 99284; 99285; A9270; G0378; J1815; J7040; M0243; Q0244; Q9967; 0202U; 87086

== ENCOUNTER 2021-06-21 07:32 | Outpatient (CLI) | payer MEDICARE ==
[2021-06-21 12:32] LABS: BASOPHILS # (AUTO) 0.1 10^3/uL (0.0-0.1); BASOPHILS % (AUTO) 0.5 %; EOSINOPHILS # (AUTO) 0.8 10^3/uL (0.0-0.7); EOSINOPHILS % (AUTO) 7.3 %; HCT - HEMATOCRIT 48.3 % (42.0-52.0); HGB - HEMOGLOBIN 16.1 g/dL (14.0-18.0); LYMPHOCYTES # (AUTO) 1.9 10^3/uL (1.5-3.5); LYMPHOCYTES % (AUTO) 18.7 %; MEAN CORPUSCULAR HEMOGLOBIN 32.7 pg (27.0-31.0); MEAN CORPUSCULAR HGB CONC 33.3 g/dL (32.0-36.0); MEAN PLATELET VOLUME 12.5 fL (7.4-11.4); MONOCYTES # (AUTO) 1.1 10^3/uL (0.0-1.0); MONOCYTES % (AUTO) 10.5 %; NEUTROPHILS # (AUTO) 6.4 10^3/uL (1.5-6.6); NEUTROPHILS % (AUTO) 62.1 %; PLT - PLATELET COUNT 143 10^3/uL (130-450); RED BLOOD COUNT 4.93 10^6/uL (4.70-6.10); RED CELL DISTRIBUTION WIDTH 13.7 % (12.0-15.0); WHITE BLOOD COUNT 10.3 x10^3/uL (4.8-10.8)
[2021-06-21 12:57] LABS: ESTIMATED AVERAGE GLUCOSE 174 mg/dL (70-100); HEMOGLOBIN A1c% 7.7 % (4.27-6.07)
[2021-06-21 13:07] LABS: THYROID STIMULATING HORMONE 5.38 uIU/mL (0.34-5.60)
[2021-06-21 13:08] LABS: ALBUMIN 3.9 g/dL (3.2-5.5); ALKALINE PHOSPHATASE 70 IU/L (42-121); ALT ALANINE AMINOTRANSFERASE 15 IU/L (10-60); AST ASPARTATE AMINOTRANSFERASE 14 IU/L (10-42); BILIRUBIN,TOTAL 1.2 mg/dL (0.2-1.0); BUN - BLOOD UREA NITROGEN 32 mg/dL (6-20); CALCIUM 9.3 mg/dL (8.5-10.3); CARBON DIOXIDE - CO2 29 mmol/L (21-32); CHLORIDE 103 mmol/L (101-111); CHOL/HDL RATIO 4.6 (<5.0); CHOLESTEROL 147 mg/dL; CREATININE 1.3 mg/dL (0.6-1.2); GFR - MDRD 53 (>89); GLUCOSE 153 mg/dL (70-100); HDL CHOLESTEROL 32 mg/dL; LDL CHOLESTEROL,CALCULATED 88 mg/dL; LDL/HDL RATIO 2.8 (<3.6); POTASSIUM 4.1 mmol/L (3.5-5.0); SODIUM 138 mmol/L (135-145); TOTAL PROTEIN 7.7 g/dL (6.7-8.2); TRIGLYCERIDES 135 mg/dL; VLDL CHOLESTEROL 27 mg/dL
== END 2021-06-21 07:33 | disposition home or self-care (01) ==
LOC: LAB.N 07:32
PROVIDERS: ATTEND Family Medicine
DX: E11.9 Type 2 diabetes mellitus without complications (principal); G31.84 Mild cognitive impairment of uncertain or unknown etiology
CPT/HCPCS: 36415; 80053; 80061; 82607; 83036; 83721; 84443; 85025

== ENCOUNTER 2021-08-13 08:47 | Outpatient (CLI) | payer MEDICARE ==
--- NOTE | 2021-08-13 14:53 | XRAY Report ---
PROCEDURE: Shuntogram INDICATIONS: Intracranial hypotension TECHNIQUE: 7 images obtained along the course of the right ventriculoperitoneal shunt. COMPARISON: Hip x-ray 01/11/2021, chest x-ray 01/01/2021, CT head 12/31/2020. FINDINGS: There is a right frontal ventriculoperitoneal shunt catheter which demonstrates intracranial extensio n through a right frontal mel hole. The tip extends to midline. There is a nonradiopaque component o f the shunt catheter along the right calvarium. The catheter subsequently extends within the right neck, along the right hemithorax, along the right abdomen, and terminates in the right hemipelvis. The catheter appears intact along its course without kinking or focal disruption. The tip appears similar in position compared to the prior pelvic x-ray study from 01/11/2021. The visualized lungs demonstrate no acute consolidation. There are linear areas of atelectasis or sca rring redemonstrated in the left lung base. Mediastinal contours appear similar to the prior study. B owel gas pattern appears within normal limits. Visualized osseous structures demonstrate no suspiciou s lesions. IMPRESSION: 1. No definite evidence of shunt disruption or displacement. Reviewed by: Todd Lira MD on 08/13/2021 2:52 PM PDT Approved by: Todd Lira MD on 08/13/2021 2:52 PM PDT Station ID: [id number]
== END 2021-08-13 08:48 | disposition home or self-care (01) ==
LOC: DI 08:47
PROVIDERS: ATTEND Physician Assistant
DX: G97.2 Intracranial hypotension following ventricular shunting (principal)

== ENCOUNTER 2021-08-20 22:46 | Outpatient (CLI) | payer MEDICARE | END 2021-08-20 22:47 | disposition left against medical advice (07) | LOC: EMS 22:46 | DX: S91.111A Laceration without foreign body of right great toe without damage to nail, initial encounter (principal); W18.39XA Other fall on same level, initial encounter; Y92.002 Bathroom of unspecified non-institutional (private) residence as the place of occurrence of the external cause ==

== ENCOUNTER 2021-08-28 09:57 | Outpatient (CLI) | payer MEDICARE | END 2021-08-28 09:58 | disposition critical access hospital (66) | LOC: EMS 09:57 | DX: R41.0 Disorientation, unspecified (principal); R29.810 Facial weakness | CPT/HCPCS: A0425; A0429 ==

== ENCOUNTER 2021-08-28 10:12 | Emergency (ER) | payer MEDICARE ==
[2021-08-28 10:38] LABS: BASOPHILS # (AUTO) 0.1 10^3/uL (0.0-0.1); BASOPHILS % (AUTO) 0.7 %; EOSINOPHILS # (AUTO) 0.7 10^3/uL (0.0-0.7); EOSINOPHILS % (AUTO) 6.9 %; HCT - HEMATOCRIT 49.4 % (42.0-52.0); HGB - HEMOGLOBIN 16.3 g/dL (14.0-18.0); LYMPHOCYTES # (AUTO) 1.2 10^3/uL (1.5-3.5); LYMPHOCYTES % (AUTO) 11.3 %; MEAN CORPUSCULAR HEMOGLOBIN 32.6 pg (27.0-31.0); MEAN CORPUSCULAR VOLUME 98.8 fL (80.0-94.0); MEAN PLATELET VOLUME 10.9 fL (7.4-11.4); MONOCYTES % (AUTO) 9.4 %; NEUTROPHILS # (AUTO) 7.2 10^3/uL (1.5-6.6); NEUTROPHILS % (AUTO) 71.1 %; PLT - PLATELET COUNT 139 10^3/uL (130-450); WHITE BLOOD COUNT 10.2 x10^3/uL (4.8-10.8)
[2021-08-28 10:53] LABS: ALBUMIN 3.7 g/dL (3.2-5.5); ALBUMIN/GLOBULIN RATIO 0.9 (1.0-2.2); BILIRUBIN,TOTAL 1.1 mg/dL (0.2-1.0); CALCIUM 9.1 mg/dL (8.5-10.3); CREATININE 1.4 mg/dL (0.6-1.2); TOTAL PROTEIN 7.6 g/dL (6.7-8.2)
--- NOTE | 2021-08-28 11:05 | XRAY Report ---
PROCEDURE: Chest 1 View X-Ray INDICATIONS: Chest Pain TECHNIQUE: One view of the chest was acquired. COMPARISON: Chest x-ray 1 view, 01/01/2021. X-ray FINDINGS: Surgical changes and devices: There is a ventricular peritoneal shunt is seen along the right neck an d right hemithorax. Lungs and pleura: Outer left basilar atelectasis. No pleural effusions or pneumothorax. Mediastinum: Mediastinal contours appear normal. Heart size is normal. Bones and chest wall: No suspicious bony lesions. Overlying soft tissues appear unremarkable. IMPRESSION: Mild left basilar atelectasis. Reviewed by: Halie Beavers MD on 08/28/2021 10:03 AM DAGOBERTO Approved by: Halie Beavers MD on 08/28/2021 10:03 AM DAGOBERTO Station ID: [id number]
[2021-08-28] MEDS ORDERED: SODIUM CHLORIDE 0.9% 1,000 ML IV STA (11:16)
--- NOTE | 2021-08-28 11:19 | ED Physician Documentation ---
History of Present Illness - Stated complaint Stated Complaint: AMS - Chief complaint Chief Complaint: Neuro - History obtained from History obtained from: Patient, Family, EMS - History of Present Illness Timing: Today - Additonal information Additional information: 81-year-old male with a history of normal pressure hydrocephalus and diabetes has become weak this morning enough so that he was unable to get up off the commode without help. The notes that over the past several weeks she has had an increase in his urinary incontinence and stool incontinence and they do have a follow-up with the neurosurgeon in the beginning of next month. Review of Systems Constitutional: denies: Fever Nose: denies: Congestion Throat: denies: Sore throat Cardiac: denies: Chest pain / pressure, Palpitations Respiratory: denies: Dyspnea, Cough GI: reports: Diarrhea. denies: Abdominal Pain, Nausea, Vomiting : reports: Incontinent Skin: reports: Rash (to the back of the legs and buttocks from incontinent stool) Musculoskeletal: denies: Neck pain, Back pain, Extremity pain Neurologic: reports: Generalized weakness. denies: Focal weakness, Numbness PD PAST MEDICAL HISTORY - Past Medical History Cardiovascular: Hypertension, High cholesterol Endocrine/Autoimmune: Type 2 diabetes, HyPOthyroidism : Nocturia, Frequency Psych: Anxiety Musculoskeletal: Osteoarthritis, Chronic back pain, Other - Past Surgical History Past Surgical History: No - Present Medications Home Medications: Ambulatory Orders Medication Instructions Recorded Confirmed Aspirin 325 mg PO DAILY 09/09/16 08/28/21 Insulin NPH Hum/Reg Insulin Hm 50 unit SQ BIDWM 09/09/16 08/28/21 [Humulin 70/30 Kwikpen] Levothyroxine Sodium 100 mcg PO QDBREAKFAST 09/09/16 08/28/21 Lovastatin 20 mg PO QPM 09/09/16 08/28/21 [place]-3/Dha/Epa/Fish Oil [[place] 3 1 each PO DAILY 09/09/16 08/28/21 500 Softgel] Carvedilol 6.25 mg PO BID 12/03/18 08/28/21 Gabapentin 900 mg PO QPM 12/03/18 08/28/21 Telmisartan 80 mg PO DAILY 12/31/20 08/28/21 allopurinoL [Zyloprim] 200 mg PO DAILY 12/31/20 08/28/21 Montelukast [Singulair] 10 mg PO QPM 01/02/21 08/28/21 Calcium Carbonate [Tums (Calcium 500 mg PO BID #30 tablet 01/12/21 08/28/21 Carbonate 500mg)] Cholecalciferol [Vitamin D3] 50 mcg PO DAILY #30 tablet 01/12/21 08/28/21 HYDROcod/ACETAM 5/325 [[place] 5/325] 1 tab PO Q4HR PRN #15 tablet 01/12/21 08/28/21 Mupirocin 2% Oint [Bactroban 2% 1 applic TOP BID #50 gm 08/28/21 Oint] - Allergies Allergies/Adverse Reactions: Allergies Allergy/AdvReac Type Severity Reaction Status Date / Time No Known Drug Allergies Allergy Verified 08/28/21 10:33 - Social History Does the pt smoke?: No Smoking Status: Never smoker Does the pt drink ETOH?: No Does the pt have substance abuse?: No - Immunizations Immunizations are current?: No Immunizations: TDAP >10years/unknown - POLST Patient has POLST: No PD ED PE NORMAL - Vitals Vital signs reviewed: Yes - General General: No acute distress, Well developed/nourished, Other (alert but with some delay in exectution of motor commands and speech latency of 2-3 seconds.) - HEENT HEENT: Atraumatic, PERRL, EOMI - Neck Neck: Supple, no meningeal sign, No bony TTP - Cardiac Cardiac: RRR, No murmur - Respiratory Respiratory: No respiratory distress, Other (diminished breath sounds. ) - Abdomen Abdomen: Soft, Non tender, Other (obese) - Back Back: No CVA TTP, No spinal TTP - Derm Derm: Normal color, Warm and dry, Other (sub cm round erythematous plaques to the back of the legs and buttocks) - Extremities Extremities: Other (pitting edema bilat LE. ) - Neuro Neuro: radiation physicist 2-12 intact, No motor deficit, No sensory deficit, Other (speech latency of 2-3 seconds) Eye Opening: Spontaneous Motor: Obeys Commands Verbal: Confused GCS Score: 14 - Psych Psych: Normal mood, Normal affect Results - Vitals Vitals: Vital Signs - 24 hr 08/28/21 08/28/21 08/28/21 10:17 12:22 13:00 Temperature 36.2 C L 36.1 C L Heart Rate 64 56 L 54 L Respiratory 18 12 15 Rate Blood Pressure 159/94 H 200/95 H 196/86 H O2 Saturation 95 94 95 08/28/21 15:25 Temperature 35.8 C L Heart Rate 63 Respiratory 23 Rate Blood Pressure O2 Saturation 95 Oxygen O2 Source Room air - EKG (time done) 1033 Rate: Rate (enter#) (61) [place]: Anterior hemiblock Intervals: Prolonged [facility] Ischemia: Q waves Compare to prior EKG: Unchanged from prior EKG (SPT 12/31/2020 no changes) Computer interpretation: Agree with computer - Labs Labs: Laboratory Tests 08/28/21 08/28/21 08/28/21 10:29 10:29 10:29 WBC 10.2 RBC 5.00 Hgb 16.3 Hct 49.4 MCV 98.8 H MCH 32.6 H MCHC 33.0 RDW 14.0 Plt Count 139 MPV 10.9 Neut # (Auto) 7.2 H Lymph # (Auto) 1.2 L [place] # (Auto) 1.0 Eos # (Auto) 0.7 Baso # (Auto) 0.1 Absolute Nucleated RBC 0.00 Nucleated RBC % 0.0 Sodium 142 Potassium 4.0 Chloride 104 Carbon Dioxide 28 Anion Gap 10.0 BUN 23 H Creatinine 1.4 H Estimated GFR (MDRD) 49 L Glucose 244 H Calcium 9.1 Total Bilirubin 1.1 H AST 15 ALT 15 Alkaline Phosphatase 75 Troponin I High Sens 20.6 H* B-Natriuretic Peptide Total Protein 7.6 Albumin 3.7 Globulin 3.9 Albumin/Globulin Ratio 0.9 L Lipase 28 08/28/21 08/28/21 10:29 13:29 WBC RBC Hgb Hct MCV MCH MCHC RDW Plt Count MPV Neut # (Auto) Lymph # (Auto) [place] # (Auto) Eos # (Auto) Baso # (Auto) Absolute Nucleated RBC Nucleated RBC % Sodium Potassium Chloride Carbon Dioxide Anion Gap BUN Creatinine Estimated GFR (MDRD) Glucose Calcium Total Bilirubin AST ALT Alkaline Phosphatase Troponin I High Sens 19.1 B-Natriuretic Peptide 88 Total Protein Albumin Globulin Albumin/Globulin Ratio Lipase - Rads (name of study) CT head Radiology: Prelim report reviewed (Impression: 1. Stable ventriculomegaly. There is a PILLAR WORKER shunt. No acute cranial abnormalities.), EMP read indepedently, See rad report Procedures - IVC sono (time) 1113 Bedside IVC sono: IVC measures (cm) (1.31), IVC collapsed c insp (cm) (complete), Dehydration (est <1 liter deficit) PD MEDICAL DECISION MAKING - ED course Complexity details: reviewed old records, reviewed results, re-evaluated patient, considered differential, d/w patient, d/w family ED course: 81-year-old male with normal pressure hydrocephalus that appears to be progressing despite placement of the shunt has now developed excessive urinary and fecal incontinence and has developed weakness. His is near the end of her ability to take care of him at home. Today in the emergency room he is found to be mildly dehydrated and he is administered saline. He does have diabetes and has elevated blood sugar. He has chronic renal insufficiency and has a minimally elevated troponin a second is obtained. The patient has fecal incontinence for the past 6 weeks with runny stool and we are investigating the stool itself. He does have a rash down the back of his legs looks like from contact. We did not find elevated white blood cell count or abnormality to the chest or head.We do not have social work available here today to consider placement. After treatment in the emergency department the patient became more animated and was able to ambulate down the [place] by himself with his walker.We are diagnosing dehydration related to his elevated blood sugar as a reason for his weakness today. He does appear to be failing in general and we were not able to get a stool specimen for evaluation. The patient is discharged to home in the care of his with the expectation that she will be contacting palliative care through her primary care doctor this coming week and that she will have a visit with his neurosurgeon to confirm that palliative care is what is recommended. Departure - Departure Disposition: Home, Self Care Clinical Impression: Dehydration DM (diabetes mellitus) Qualifiers: Diabetes mellitus type: type 2 Diabetes mellitus continuous churn buttermaker insulin use: without assisted use Diabetes mellitus complication status: with other specified complication Qualified Code(s): E11.69 - Type 2 diabetes mellitus with other specified complication Condition: Stable Instructions: ED Dehydration Follow-Up: Adrián Ulloa DO [Primary Care Provider] - Prescriptions: Mupirocin 2% Oint [Bactroban 2% Oint] 1 applic TOP BID #50 gm Comments: Today it looks like Jesus was especially weak secondary to dehydration. Looks like the dehydration is likely secondary to an elevated blood sugar and uncontrolled diabetes. It also looks like Jesus is having progression of his normal pressure hydrocephalus symptoms despite having the shunt in place. This may progressed despite anything we do and a visit to your neurosurgeon is recommended. A visit to palliative care is recommended as well. Follow-up with your primary for this referral. It also looks like Jesus has some superficial and skin infection or irritation from the stool going down his legs. I have provided some mupirocin to try on these spots and this may or may not help. My recommendation is to try it on one leg if you see no results from this do not continue to try to make this work. This medication has been E scribed to [facility] in [place]. Discharge Date/Time: 08/28/21 15:57
--- NOTE | 2021-08-28 12:23 | CT Report ---
PROCEDURE: HEAD WO INDICATIONS: AMS shunt in place TECHNIQUE: Noncontrast 4.5 mm thick angled axial sections acquired from the foramen magnum to the vertex. For r adiation dose reduction, the following was used: automated exposure control, adjustment of mA and/or kV according to patient size. COMPARISON: CT head with and without contrast, 12/31/2020. FINDINGS: Image quality: Excellent. CSF spaces: There is a ventricular shunt entering from the right frontal lobe with the tip in the ar ea of foramen Monro, stable in position and appearance. Basal cisterns are patent. No extra-axial fl uid collections. Ventricles are prominent but symmetrical in size and shape. Brain: Moderate cerebral atrophy. Mild periventricular white matter chronic small vessel degenerativ e changes are present. No midline shift. No intracranial masses or hemorrhage. Shipley-white matter in terface is normal. Skull and face: Calvarium and visualized facial bones are intact, without suspicious lesions. Sinuses: Visualized sinuses and mastoids are clear. IMPRESSION: 1. Stable ventriculomegaly. There is a ELECTRIC FURNACE OPERATOR shunt. 2. No acute intracranial abnormalities. Reviewed by: Halie Beavers MD on 08/28/2021 11:22 AM DAGOBERTO Approved by: Haile Beavers MD on 08/28/2021 11:22 AM NDKAILEE Station ID: [id number]
[2021-08-28 13:20] VITALS: BP 196/86
== END 2021-08-28 15:57 | disposition home or self-care (01) ==
LOC: EDUNIT# → ED 10:12
DX: E11.65 Type 2 diabetes mellitus with hyperglycemia (principal); Z79.4 Long term (current) use of insulin; E86.0 Dehydration; I10 Essential (primary) hypertension
CPT/HCPCS: 36415; 80053; 83690; 83880; 84484; 85025; 93005; 96360; 96361; 99284

== ENCOUNTER 2021-09-01 06:37 | Outpatient (CLI) | payer MEDICARE | END 2021-09-01 06:38 | disposition EMS.NT | LOC: EMS 06:37 | DX: Z03.89 Encounter for observation for other suspected diseases and conditions ruled out (principal) ==

== ENCOUNTER 2021-09-11 08:53 | Outpatient (CLI) | payer MEDICARE | END 2021-09-11 08:54 | disposition EMS.NT | LOC: EMS 08:53 | DX: Z03.89 Encounter for observation for other suspected diseases and conditions ruled out (principal) ==

== ENCOUNTER 2021-09-16 23:58 | Outpatient (CLI) | payer MEDICARE | END 2021-09-16 23:59 | disposition EMS.NT | LOC: EMS 23:58 | DX: Z03.89 Encounter for observation for other suspected diseases and conditions ruled out (principal) ==

== ENCOUNTER 2021-10-23 15:12 | Outpatient (CLI) | payer MEDICARE | END 2021-10-23 15:13 | disposition EMS.NT | LOC: EMS 15:12 | DX: Z03.89 Encounter for observation for other suspected diseases and conditions ruled out (principal) ==

== ENCOUNTER 2021-11-22 08:15 | Outpatient (CLI) | payer MEDICARE ==
[2021-11-22 13:33] LABS: ESTIMATED AVERAGE GLUCOSE 148 mg/dL (70-100); HEMOGLOBIN A1c% 6.8 % (4.27-6.07)
== END 2021-11-22 08:16 | disposition home or self-care (01) ==
LOC: LAB.N 08:15
PROVIDERS: ATTEND Physician Assistant
DX: E11.9 Type 2 diabetes mellitus without complications (principal)
CPT/HCPCS: 36415; 83036

== ENCOUNTER 2022-03-18 02:12 | Outpatient (CLI) | payer MEDICARE | END 2022-03-18 23:59 | disposition EMS.NT | LOC: EMS 02:12 | DX: Z03.89 Encounter for observation for other suspected diseases and conditions ruled out (principal) ==

== ENCOUNTER 2022-03-29 07:27 | Outpatient (CLI) | payer MEDICARE ==
[2022-03-29 12:26] LABS: CALCIUM 9.4 mg/dL (8.5-10.3); POTASSIUM 4.2 mmol/L (3.5-5.0)
[2022-03-29 12:50] LABS: CREATININE 1.4 mg/dL (0.6-1.2)
[2022-03-29 13:16] LABS: ESTIMATED AVERAGE GLUCOSE 183 mg/dL (70-100)
== END 2022-03-29 07:28 | disposition home or self-care (01) ==
LOC: LAB.N 07:27
PROVIDERS: ATTEND Physician Assistant
DX: R60.9 Edema, unspecified (principal); E11.9 Type 2 diabetes mellitus without complications
CPT/HCPCS: 36415; 80048; 83036

== ENCOUNTER 2022-04-25 08:47 | Outpatient (CLI) | payer MEDICARE | END 2022-04-25 08:48 | disposition short-term general hospital (02) | LOC: EMS 08:47 | DX: S99.912A Unspecified injury of left ankle, initial encounter (principal); W18.39XA Other fall on same level, initial encounter; Y93.01 Activity, walking, marching and hiking; Y92.009 Unspecified place in unspecified non-institutional (private) residence as the place of occurrence of the external cause | CPT/HCPCS: A0425; A0427 ==

== ENCOUNTER 2022-07-30 08:18 | Outpatient (CLI) | payer MEDICARE | END 2022-07-30 23:59 | disposition left against medical advice (07) | LOC: EMS 08:18 | DX: R53.1 Weakness (principal); R42 Dizziness and giddiness; I95.9 Hypotension, unspecified; W18.39XA Other fall on same level, initial encounter; Y92.003 Bedroom of unspecified non-institutional (private) residence as the place of occurrence of the external cause ==

== ENCOUNTER 2022-08-31 12:55 | Outpatient (CLI) | payer MEDICARE | END 2022-08-31 23:59 | disposition EMS.NT | LOC: EMS 12:55 | DX: Z03.89 Encounter for observation for other suspected diseases and conditions ruled out (principal) ==

== ENCOUNTER 2022-10-10 06:04 | Outpatient (CLI) | payer MEDICARE | END 2022-10-10 23:59 | disposition EMS.NT | LOC: EMS 06:04 | DX: Z03.89 Encounter for observation for other suspected diseases and conditions ruled out (principal) ==

== ENCOUNTER 2022-11-11 07:29 | Outpatient (CLI) | payer MEDICARE | END 2022-11-11 23:59 | disposition left against medical advice (07) | LOC: EMS 07:29 | DX: S80.211A Abrasion, right knee, initial encounter (principal); W18.11XA Fall from or off toilet without subsequent striking against object, initial encounter; Y92.002 Bathroom of unspecified non-institutional (private) residence as the place of occurrence of the external cause ==

== ENCOUNTER 2022-11-18 10:40 | Outpatient (CLI) | payer MEDICARE ==
[2022-11-18 17:44] LABS: BASOPHILS # (AUTO) 0.1 10^3/uL (0.0-0.1); BASOPHILS % (AUTO) 0.8 %; EOSINOPHILS # (AUTO) 0.9 10^3/uL (0.0-0.7); EOSINOPHILS % (AUTO) 9.1 %; HCT - HEMATOCRIT 49.8 % (42.0-52.0); HGB - HEMOGLOBIN 15.6 g/dL (14.0-18.0); LYMPHOCYTES # (AUTO) 1.7 10^3/uL (1.5-3.5); LYMPHOCYTES % (AUTO) 17.4 %; MEAN CORPUSCULAR HEMOGLOBIN 32.2 pg (27.0-31.0); MEAN CORPUSCULAR HGB CONC 31.3 g/dL (32.0-36.0); MEAN CORPUSCULAR VOLUME 102.7 fL (80.0-94.0); MEAN PLATELET VOLUME 12.6 fL (7.4-11.4); MONOCYTES # (AUTO) 0.9 10^3/uL (0.0-1.0); MONOCYTES % (AUTO) 9.3 %; NEUTROPHILS # (AUTO) 6.1 10^3/uL (1.5-6.6); NEUTROPHILS % (AUTO) 62.7 %; PLT - PLATELET COUNT 163 10^3/uL (130-450); RED BLOOD COUNT 4.85 10^6/uL (4.70-6.10); RED CELL DISTRIBUTION WIDTH 14.6 % (12.0-15.0); WHITE BLOOD COUNT 9.7 x10^3/uL (4.8-10.8)
[2022-11-18 18:00] LABS: ALBUMIN 3.5 g/dL (3.2-5.5); ALBUMIN/GLOBULIN RATIO 0.9 (1.0-2.2); ALKALINE PHOSPHATASE 85 IU/L (42-121); ALT ALANINE AMINOTRANSFERASE 12 IU/L (10-60); AST ASPARTATE AMINOTRANSFERASE 13 IU/L (10-42); BILIRUBIN,TOTAL 0.7 mg/dL (0.2-1.0); BUN - BLOOD UREA NITROGEN 37 mg/dL (6-20); CALCIUM 9.5 mg/dL (8.5-10.3); CARBON DIOXIDE - CO2 34 mmol/L (21-32); CHLORIDE 104 mmol/L (101-111); CHOL/HDL RATIO 5.9 (<5.0); CHOLESTEROL 166 mg/dL; CREATININE 1.4 mg/dL (0.6-1.3); GFR - MDRD 49 (>89); GLUCOSE 153 mg/dL (74-104); HDL CHOLESTEROL 28 mg/dL; LDL CHOLESTEROL,CALCULATED 112 mg/dL; POTASSIUM 4.3 mmol/L (3.5-4.5); SODIUM 141 mmol/L (135-145); TOTAL PROTEIN 7.4 g/dL (6.4-8.9); TRIGLYCERIDES 128 mg/dL (48-352); VLDL CHOLESTEROL 26 mg/dL
[2022-11-18 20:41] LABS: ESTIMATED AVERAGE GLUCOSE 157 mg/dL (70-100); HEMOGLOBIN A1c% 7.1 % (4.27-6.07)
[2022-11-18 21:19] LABS: CREATININE,URINE 75.6 mg/dL; MICROALBUM/CREATININE RATIO,UR 23.8 ug/mg (<30.0); MICROALBUMIN,URINE 1.8 mg/dL
== END 2022-11-18 10:41 | disposition home or self-care (01) ==
LOC: LAB.N 10:40
PROVIDERS: ATTEND Physician Assistant
DX: E11.9 Type 2 diabetes mellitus without complications (principal); E03.9 Hypothyroidism, unspecified
CPT/HCPCS: 36415; 80053; 80061; 82043; 82570; 83036; 83721; 84439; 84443; 85025

== ENCOUNTER 2022-12-10 11:37 | Outpatient (CLI) | payer MEDICARE | END 2022-12-10 11:38 | disposition critical access hospital (66) | LOC: EMS 11:37 | DX: R55 Syncope and collapse (principal); R11.10 Vomiting, unspecified | CPT/HCPCS: A0425; A0427 ==

== ENCOUNTER 2022-12-10 11:58 | Observation (INO) | payer MEDICARE ==
--- NOTE | 2022-12-10 12:14 | ED Physician Documentation ---
History of Present Illness - Stated complaint Stated Complaint: SYNCOPE - Chief complaint Chief Complaint: Neuro - Additonal information Additional information: 82-year-old male is brought into the emergency department for evaluation of a sy ncopal episode. He was reportedly riding a paratransit in his wheelchair. He had just eaten breakfast. He then vomited everywhere and had a witnessed syncopal episode that lasted 1 to 2 minutes. When EMS arrived they found that he had soft blood pressures in the 70s over 50s. In route to the ER they gave him 700 mL of fluid and on presentation to the ER he has a blood pressure of 111/49. Blood glucose was 244 for EMS. He was saturating 96% on room air. Patient has a past medical history most significant for hypertension, diabetes, chronic kidney disease, hypothyroidism CAGE SUPERVISOR shunt. He does not appear to be anticoagulated. On presentation to the emergency department he is alert though confused to time and situation. He appears to have no focal deficits. He does appear to have emesis on his lap and clothing. At the time of my initial exam the patient denies chest pain or shortness of air. Denying abdominal pain. Review of Systems Unable to obtain: Confused, Other (Per EMS and chart review) Cardiac: denies: Chest pain / pressure Respiratory: denies: Dyspnea GI: reports: Vomiting : reports: Reviewed and negative Skin: reports: Reviewed and negative Musculoskeletal: reports: Reviewed and negative Neurologic: reports: Reviewed and negative Psychiatric: reports: Reviewed and negative PD PAST MEDICAL HISTORY - Past Medical History Cardiovascular: Hypertension, High cholesterol Endocrine/Autoimmune: Type 2 diabetes, HyPOthyroidism : Nocturia, Frequency Psych: Anxiety Musculoskeletal: Osteoarthritis, Chronic back pain, Other - Past Surgical History Past Surgical History: No - Present Medications Home Medications: Ambulatory Orders Medication Instructions Recorded Confirmed Aspirin 325 mg PO DAILY 09/09/16 08/28/21 Insulin NPH Hum/Reg Insulin Hm 50 unit SQ BIDWM 09/09/16 12/10/22 [Humulin 70/30 Kwikpen] Levothyroxine Sodium 100 mcg PO QDBREAKFAST 09/09/16 12/10/22 Lovastatin 20 mg PO QPM 09/09/16 12/10/22 [place]-3/Dha/Epa/Fish Oil [[place] 3 1 each PO DAILY 09/09/16 08/28/21 500 Softgel] Carvedilol 6.25 mg PO BID 12/03/18 12/10/22 Gabapentin 900 mg PO QPM 12/03/18 12/10/22 Telmisartan 80 mg PO DAILY 12/31/20 12/10/22 allopurinoL [Zyloprim] 200 mg PO DAILY 12/31/20 12/10/22 Montelukast [Singulair] 10 mg PO QPM 01/02/21 12/10/22 Calcium Carbonate [Tums (Calcium 500 mg PO BID #30 tablet 01/12/21 08/28/21 Carbonate 500mg)] Cholecalciferol [Vitamin D3] 50 mcg PO DAILY #30 tablet 01/12/21 08/28/21 HYDROcod/ACETAM 5/325 [[place] 5/325] 1 tab PO Q4HR PRN #15 tablet 01/12/21 08/28/21 Mupirocin 2% Oint [Bactroban 2% 1 applic TOP BID #50 gm 08/28/21 Oint] - Allergies Allergies/Adverse Reactions: Allergies Allergy/AdvReac Type Severity Reaction Status Date / Time No Known Drug Allergies Allergy Verified 08/28/21 10:33 - Social History Does the pt smoke?: No Smoking Status: Never smoker Does the pt drink ETOH?: No Does the pt have substance abuse?: No - Immunizations Immunizations are current?: No Immunizations: TDAP >10years/unknown - POLST Patient has POLST: No PD ED PE EXPANDED - General General: No acute distress, Lethargic - Neck Neck: Supple w/out meningeal sx - Cardiac Cardiac: [place], Murmur Present, Radial strong equal, Pedal strong equal, Cap refill < 2 sec - Respiratory Respiratory: Other (globally diminished, faint crackles at bases). No: Clear to ausultation krupa, Distress, Labored - Abdomen Abdomen: Normal Bowel sounds. No: Tender to palpation - Derm Derm: Normal color, Other (Dressing on the left foot covering wound) - Neuro Neuro: Disoriented, CNII-XII intact - GCS Eye Opening: Spontaneous Motor: Obeys Commands Verbal: Oriented Total: 15 Results - Vitals Vitals: Vital Signs - 24 hr 12/10/22 12/10/22 12/10/22 12:02 12:40 12:42 Temperature 36.5 C Heart Rate 53 L 59 L 59 L Respiratory 22 19 26 H Rate Blood Pressure 111/49 L 92/67 97/67 O2 Saturation 92 92 87 L If not protocol : Oxygen Flow, liters/minute 12/10/22 12/10/22 12/10/22 12:49 13:49 14:19 Temperature Heart Rate 55 L 55 L 50 L Respiratory 16 15 14 Rate Blood Pressure 128/79 128/88 H 117/73 O2 Saturation 98 97 95 If not protocol 2 2 2 : Oxygen Flow, liters/minute 12/10/22 14:41 Temperature Heart Rate 26 L Respiratory 12 Rate Blood Pressure 64/51 L O2 Saturation 98 If not protocol 2 : Oxygen Flow, liters/minute Oxygen O2 Source Nasal cannula Oxygen Flow Rate 2 - EKG (time done) 1204 EKG releavant findings:: EKG personally interpreted by author of this note. Relevant findings are: Rate: Rate (enter#) (54) Rhythm: NSR, Other (pac) [place]: Anterior hemiblock (lafb) Intervals: Prolonged IA. No: Prolonged QT QRS: Low voltage Ischemia: Non specific changes Compare to prior EKG: Unchanged from prior EKG Computer interpretation: Agree with computer - Labs Labs: Laboratory Tests 12/10/22 12/10/22 12/10/22 12:21 12:21 12:21 WBC 8.7 RBC 4.61 L Hgb 15.2 Hct 46.7 MCV 101.3 H MCH 33.0 H MCHC 32.5 RDW 14.3 Plt Count 140 MPV 11.6 H Neut # (Auto) 5.4 Lymph # (Auto) 1.5 [place] # (Auto) 0.7 Eos # (Auto) 0.9 H Baso # (Auto) 0.1 Absolute Nucleated RBC 0.00 Nucleated RBC % 0.0 PT 13.6 H INR 1.2 VBG pH VBG pCO2 VBG pO2 VBG HCO3 VBG Total CO2 VBG O2 Saturation VBG Base Excess Sodium 140 Potassium 4.1 Chloride 102 Carbon Dioxide 36 H Anion Gap 2.0 L BUN 44 H Creatinine 1.8 H Estimated GFR (MDRD) 36 L Glucose 197 H Lactic Acid Calcium 9.1 Total Bilirubin 0.7 AST 13 ALT 12 Alkaline Phosphatase 81 Troponin I High Sens 7.3 B-Natriuretic Peptide Total Protein 7.0 Albumin 3.3 Globulin 3.7 Albumin/Globulin Ratio 0.9 L Lipase 22 TSH 7.73 H Free T4 Direct 1.22 12/10/22 12/10/22 12/10/22 12:21 12:21 12:21 WBC RBC Hgb Hct MCV MCH MCHC RDW Plt Count MPV Neut # (Auto) Lymph # (Auto) [place] # (Auto) Eos # (Auto) Baso # (Auto) Absolute Nucleated RBC Nucleated RBC % PT INR VBG pH 7.348 VBG pCO2 56.8 H VBG pO2 33.5 VBG HCO3 30.5 H VBG Total CO2 32.3 H VBG O2 Saturation 62.7 VBG Base Excess 3.2 H Sodium Potassium Chloride Carbon Dioxide Anion Gap BUN Creatinine Estimated GFR (MDRD) Glucose Lactic Acid 1.4 Calcium Total Bilirubin AST ALT Alkaline Phosphatase Troponin I High Sens B-Natriuretic Peptide 25 Total Protein Albumin Globulin Albumin/Globulin Ratio Lipase TSH Free T4 Direct - Rads (name of study) cxr Relevant Findings:: Final report received (Congestive heart failure exacerbation) ct head Relevant Findings:: Final report received (No acute intracranial process.) PD Medical Decision Making - ED course Complexity details: reviewed old records, reviewed results, re-evaluated patient, considered differential, d/w patient, d/w family ED course: 82-year-old male who has past medical history most significant for hypertension, diabetes, previous CAGE SUPERVISOR shunt, wheelchair dependent secondary to acetabular fracture, known aortic stenosis presents to the emergency department after he had a syncopal/near syncopal episode while waiting for paratransit. He had just eaten breakfast when he began to vomit. His reports that he had a glazed over look and seemed unresponsive though his eyes were open. On presentation to the emergency department the patient is a Glascow of 14 due to simple confusion but has no focal deficits otherwise. For EMS they found that he had a bradycardic rhythm and initially soft blood pressures of 70s over 50s but on presentation to the ER his vital signs had improved to 111/49. While being monitored here in the ER he has had some softer blood pressures 90/60. EMS had given the patient 700 mL of fluid. We did initially obtain a chest x-ray and as interpreted by the radiologist does show congestive heart failure exacerbation. Subsequently CBC, VBG and blood chemistry reveal a normal hemoglobin without leukocytosis. VBG reveals some mild CO2 retention with a value of 57. The blood chemistry shows some acute on chronic kidney disease with a BUN of 44 and a creatinine of 1.8. Most recent values were 37 and 1.4. Sodium and potassium were normal. Patient's troponin was negative and his BNP is not elevated. TSH was elevated but T4 was normal. Lactate was normal A CT of the head showed no acute intracranial findings though the CAGE SUPERVISOR shunt is noted. Patient's indicates to me the patient is a DNR with limited interventions. She had stated that when the patient was told of his severe aortic stenosis at [facility] in April of this year he declined further evaluation or management of that as his quality of life has significantly deteriorated. Shortly after presentation to the emergency department however the patient began to desaturate on room air to 87%. This corrected with nasal cannula. Given the findings of congestive heart failure and aortic stenosis the patient will require admission to the hospital for further management of this but given the soft blood pressures we will have to be cautious with diuretic use as such I have ordered an initial dose of 20 mg IV push. 1415: I have spoken with Dr. Sheehan daytime hospitalist graciously agrees to bring patient in for further evaluation and management of his near syncope, CHF exacerbation in the setting of severe aortic stenosis. 1455: Nursing staff notified me that after the patient received the IV bolus of furosemide he began to have significant hypotension with a blood pressure in the 60s and bradycardia down into the 30s. I went to the bedside and reevaluated the patient. He was somnolent but arousable and able to converse. His is at the bedside as well as his son and daughter. His reiterated that she feels it is his time to go and she did not want aggressive measures such as chronotropic medications to support his heart rate or blood pressure. I did administer a single 250 mg fluid bolus as the furosemide did not seem to have elicited this response. His reiterates to me that she thinks the patient would not want aggressive measures especially as he did not want treatment for his aortic stenosis in April. She feels that if he is dying, he will be in a better place. I have offered the family a comfort cart. I have also notified Dr. Sheehan of the change in situation and status. At this time patient is a comfort care measures patient. Departure - Departure Disposition: 66 [facility] DC/Xfer Clinical Impression: History of ventriculoperitoneal shunting, History of diabetes mellitus, type II, Near syncope CHF (congestive heart failure) Qualifiers: Heart failure type: unspecified Heart failure chronicity: acute on chronic Qualified Code(s): I50.9 - Heart failure, unspecified Syncope Qualifiers: Syncope type: unspecified Qualified Code(s): R55 - Syncope and collapse Aortic stenosis Qualifiers: Cardiac valve disease etiology: etiology unspecified Qualified Code(s): I35.0 - Nonrheumatic aortic (valve) stenosis Condition: Serious Forms: PCP List
[2022-12-10 12:33] LABS: BASOPHILS # (AUTO) 0.1 10^3/uL (0.0-0.1); BASOPHILS % (AUTO) 0.8 %; EOSINOPHILS # (AUTO) 0.9 10^3/uL (0.0-0.7); EOSINOPHILS % (AUTO) 10.8 %; HCT - HEMATOCRIT 46.7 % (42.0-52.0); HGB - HEMOGLOBIN 15.2 g/dL (14.0-18.0); LYMPHOCYTES # (AUTO) 1.5 10^3/uL (1.5-3.5); LYMPHOCYTES % (AUTO) 17.2 %; MEAN CORPUSCULAR HGB CONC 32.5 g/dL (32.0-36.0); MEAN CORPUSCULAR VOLUME 101.3 fL (80.0-94.0); MEAN PLATELET VOLUME 11.6 fL (7.4-11.4); MONOCYTES # (AUTO) 0.7 10^3/uL (0.0-1.0); MONOCYTES % (AUTO) 8.1 %; NEUTROPHILS # (AUTO) 5.4 10^3/uL (1.5-6.6); NEUTROPHILS % (AUTO) 62.5 %; PLT - PLATELET COUNT 140 10^3/uL (130-450); RED BLOOD COUNT 4.61 10^6/uL (4.70-6.10); RED CELL DISTRIBUTION WIDTH 14.3 % (12.0-15.0); WHITE BLOOD COUNT 8.7 x10^3/uL (4.8-10.8)
[2022-12-10 12:40] LABS: VBG PCO2 56.8 mmHg (41-51); VBG PH 7.348 (7.31-7.41); VBG PO2 33.5 mmHg (25-47)
[2022-12-10 12:41] LABS: INR 1.2 (0.8-1.2); PT - PROTHROMBIN TIME 13.6 secs (9.9-12.6); VBG BASE EXCESS 3.2 mmol/L (-2 - +2); VBG HCO3 30.5 mmol/L (23-28); VBG OXYGEN SATURATION 62.7 % (60-80); VBG TOTAL CO2 32.3 mmol/L (24-29)
[2022-12-10 12:50] LABS: ALBUMIN 3.3 g/dL (3.2-5.5); ALBUMIN/GLOBULIN RATIO 0.9 (1.0-2.2); BILIRUBIN,TOTAL 0.7 mg/dL (0.2-1.0); CALCIUM 9.1 mg/dL (8.5-10.3); CREATININE 1.8 mg/dL (0.6-1.3); POTASSIUM 4.1 mmol/L (3.5-4.5)
[2022-12-10 12:52] LABS: TROPONIN I HIGH SENSITIVITY 7.3 ng/L (2.3-19.7)
--- NOTE | 2022-12-10 12:57 | XRAY Report ---
PROCEDURE: Chest 1 View X-Ray INDICATIONS: Chest Pain TECHNIQUE: One view of the chest was acquired. COMPARISON: 11/29/2022. FINDINGS: Surgical changes and devices: PIECE DYE WORKER shunt catheter. Lungs and pleura: Lungs are hypoexpanded resulting in vascular crowding. Interstitial pulmonary rachid a is likely present. Mediastinum: Mediastinal contours appear normal. Mild cardiomegaly. Bones and chest wall: No suspicious bony lesions. Overlying soft tissues appear unremarkable. IMPRESSION: Congestive heart failure exacerbation. Reviewed by: Fidencio Hall MD on 12/10/2022 12:56 PM PDT Approved by: Fidencio Hall MD on 12/10/2022 12:56 PM PDT Station ID: [id number]
[2022-12-10 13:02] LABS: THYROID STIMULATING HORMONE 7.73 uIU/mL (0.34-5.60)
[2022-12-10] MEDS ORDERED: FUROSEMIDE 20 MG/2 ML VIAL IVP STA (13:45)
--- NOTE | 2022-12-10 13:50 | CT Report ---
PROCEDURE: HEAD WO INDICATIONS: ams, syncope TECHNIQUE: Noncontrast 4.5 mm thick angled axial sections acquired from the foramen magnum to the vertex. For r adiation dose reduction, the following was used: automated exposure control, adjustment of mA and/or kV according to patient size. COMPARISON: None. FINDINGS: Image quality: Excellent. CSF spaces: Basal cisterns are patent. No extra-axial fluid collections. Ventricles are normal in size and shape. Right frontal approach ventriculostomy stable. No hydrocephalus. Brain: No midline shift. No intracranial masses or hemorrhage. Shipley-white matter interface is norm al. Generalized cerebral and cerebellar volume loss and multifocal white matter chronic ischemic demian nge present. Skull and face: Calvarium and visualized facial bones are intact, without suspicious lesions. Tunnel ed ventriculostomy Sinuses: Visualized sinuses and mastoids are clear. IMPRESSION: Stable atrophy, chronic ischemic change and a ventriculostomy without change from the prior Reviewed by: Jose Lux MD on 12/10/2022 12:48 PM AKDT Approved by: Jose Lux MD on 12/10/2022 12:48 PM AKDT Station ID: [id number]
[2022-12-10] MEDS ORDERED: SODIUM CHLORIDE 0.9% 250 ML IV STA (14:58)
[2022-12-10] MEDS ORDERED: ACETAMINOPHEN 325 MG TABLET PO PRN (15:39)
[2022-12-10] MEDS ORDERED: ONDANSETRON 4 MG/2 ML VIAL IVP PRN (15:39)
[2022-12-10] MEDS ORDERED: PROCHLORPERAZINE 10 MG/2 ML VIAL IVP PRN (15:39)
[2022-12-10] MEDS ORDERED: MORPHINE SOL 10 MG/0.5 ML ORAL SYRINGE PO PRN (15:42)
--- NOTE | 2022-12-10 16:04 | HISTORY & PHYSICAL EXAMINATION ---
Chief Complaint - Chief Complaint Chief Complaint: Syncope, Bradycardia, Hx of severe History of Present Illness - Admitted From Admitted From:: ED - History Obtained From History obtained from: ED provider and patient's - History of Present Illness HPI Comment/Other: This is an 82-year-old male with history of diabetes on insulin, history of NPH with an intracerebral shunt, history of aortic stenosis diagnosed years ago for which she wanted no Cardiology consultation and no interventions. The patient has been feeling fine and went out with his for breakfast at a restaurant. He uses a wheelchair and after breakfast he had syncope while in his wheelchair, his eyes rolled back briefly. He then had emesis. An ambulance was called. At the scene he had BP of 70/50 and he recieved iv fluids. O2 saturationwas 96%. Heart rate is not known, as there are no ambulance run sheet scanned into his chart. He was brought to the emergency room, and he was desaturating to 87% on room air and was started on O2 nasal cannula. His work-up showed that he has CHF and he was given IV Lasix. He then dropped his heart rate to 26. The reminded the ED staff that the patient is a DNR/DNI and does not want cardiac interventions, no atropine was given therefore. With this persistent bradycardia with HR between 30-40, he dropped his blood pressure to 67 systolic. He was given 250 cc fluid bolus. The ED provider then spoke to the who reiterated that she does not want any aggressive management or heroics, no special interventions for his bradycardia. The focus would be to make him comfortable. The ED provider then spoke to me about this patient. I examined the patient and spoke to the as well and confirmed these wishes. He will be placed in Observation status. Patient CODE STATUS is DNR/DNI. History - Past Medical History Cardiovascular: reports: Hypertension, High cholesterol, Valve disorder (Severe , he wanted no Cardiology evals or intervention ever) Respiratory: reports: None Neuro: reports: Other (had NPH, has a ENGINEER INTERN shunt) Endocrine/Autoimmune: reports: Type 2 diabetes, HyPOthyroidism GI: reports: None : reports: Nocturia, Frequency Psych: reports: Anxiety Musculoskeletal: reports: Osteoarthritis, Chronic back pain, Other MRSA Hx?: No - Past Surgical History Neuro: reports: ENGINEER INTERN shunt - Family & Social History Living arrangement: At home Living Situation: With spouse/s.o. - POLST Patient has POLST: No Meds/Allgy - Home Medications Home Medications: Ambulatory Orders Medication Instructions Recorded Confirmed Aspirin 325 mg PO DAILY 09/09/16 08/28/21 Insulin NPH Hum/Reg Insulin Hm 50 unit SQ BIDWM 09/09/16 12/10/22 [Humulin 70/30 Kwikpen] Levothyroxine Sodium 100 mcg PO QDBREAKFAST 09/09/16 12/10/22 Lovastatin 20 mg PO QPM 09/09/16 12/10/22 [place]-3/Dha/Epa/Fish Oil [[place] 3 1 each PO DAILY 09/09/16 08/28/21 500 Softgel] Carvedilol 6.25 mg PO BID 12/03/18 12/10/22 Gabapentin 900 mg PO QPM 12/03/18 12/10/22 Telmisartan 80 mg PO DAILY 12/31/20 12/10/22 allopurinoL [Zyloprim] 200 mg PO DAILY 12/31/20 12/10/22 Montelukast [Singulair] 10 mg PO QPM 01/02/21 12/10/22 Calcium Carbonate [Tums (Calcium 500 mg PO BID #30 tablet 01/12/21 08/28/21 Carbonate 500mg)] Cholecalciferol [Vitamin D3] 50 mcg PO DAILY #30 tablet 01/12/21 08/28/21 HYDROcod/ACETAM 5/325 [[place] 5/325] 1 tab PO Q4HR PRN #15 tablet 01/12/21 08/28/21 Mupirocin 2% Oint [Bactroban 2% 1 applic TOP BID #50 gm 08/28/21 Oint] - Allergies Allergies/Adverse Reactions: Allergies Allergy/AdvReac Type Severity Reaction Status Date / Time No Known Drug Allergies Allergy Verified 08/28/21 10:33 Review of Systems - All Other Systems All Other Systems: reports: Reviewed and negative (All symptoms were obtained from the 's descriptions and are documented in the HPI, all the rest are neg) Exam - Vital Signs Reviewed Vital Signs: Yes Vital Signs: Vital Signs x48h Temp Pulse Resp BP Pulse Ox O2 Flow Rate 12/10/22 15:46 41 L 16 95/62 95 2 12/10/22 15:25 35 L 14 68/51 L 97 12/10/22 14:41 26 L 12 64/51 L 98 2 12/10/22 14:19 50 L 14 117/73 95 2 12/10/22 13:49 55 L 15 128/88 H 97 2 12/10/22 12:49 55 L 16 128/79 98 2 12/10/22 12:42 59 L 26 H 97/67 87 L 12/10/22 12:40 59 L 19 92/67 92 12/10/22 12:02 36.5 C 53 L 22 111/49 L 92 - Physical Exam General Appearance: positive: Lethargic, Other (Pale. Obese elderly male.) Eyes Bilateral: positive: Normal inspection, EOMI, No lid inflammation ENT: positive: No signs of dehydration Neck: positive: Nml inspection, Other (Obese neck and cannot eval JVP) Respiratory: positive: Rales (both bases) Cardiovascular: positive: Bradycardia, Systolic murmur (Very distant heart sounds, very soft systolic murmur, heard at base.) Abdomen: positive: Non-tender, Other (Obese) Skin: positive: Dry, Pallor, Other (Cool skin but not mottled) Extremities: positive: Non-tender, Other (2+ edema to groin) Neurologic/Psychiatric: positive: Oriented x3, Other (Lethargic, slow speech.) Conclusion/Plan - Problem List (1) Syncope Conclusion/Plan: He had witnessed syncope with emesis. This suggest that bradycardia and hypotension were the cause of his syncope. Bradycardia has also been demonstrated when he presented to the ER. His severe is the cause of his bradycardia, hypotension, heart failure, and his syncope. Plan: He will be placed in Observation, remain on telemetry so we can monitor if he has asystole No transfer for pacemaker is planned No intervention such as atropine He will not be admitted to the ICU Qualifiers: Syncope type: unspecified Qualified Code(s): R55 - Syncope and collapse (2) Hypotension Conclusion/Plan: The patient is in cardiogenic shock from end-stage aortic stenosis. Fink: No admission to the ICU or aggressive medical management is planned, as was requested by His low blood pressure will limit the types of meds we can use, Lasix and morphine will exacerbate his hypotension. I will order Roxanol for dyspnea (3) CHF (congestive heart failure) Conclusion/Plan: As above in #1 & 2 Qualifiers: Heart failure type: unspecified Heart failure chronicity: acute on chronic Qualified Code(s): I50.9 - Heart failure, unspecified (4) Severe aortic stenosis Conclusion/Plan: Severe is the underlying cause of his bradycardia, his hypotension and his heart failure I explained to the that he may linger for several days with these poor vital signs, or may pass away soon. Kayce, his has contacted all the children, 2 are at bedside already presently. Plan: The goal will be comfort directed. Iwkirby order meds on the Comfort package. I will order Hospice for taking him on as their patient if he survives until Monday (today is Monday and hospice is not available on Monday and Monday) (5) DM type 2 (diabetes mellitus, type 2) Conclusion/Plan: Medication list shows that he is on insulin, the confirms that he takes insulin and checks his glucose with the CGM Plan: Because of his somnolence I will order a pured diet with no carb control limits but will do fingerstick checks and order ss insulin coverage. I will stop fingerstick checks if the wants us to stop needles and other painful procedures. (6) Acute kidney injury superimposed on CKD Conclusion/Plan: His EMR was reviewed. He runs creatinine of 1.4. His admission labs show creatinine of 1.8. This is very likely from cardiorenal syndrome Plan: With his hypotension we cannot continue to administer Lasix Avoid nephrotoxins - Lab Results Lab results reviewed: Yes Fish Bones: 12/10/22 12:21 12/10/22 12:21 - Diagnostic Imaging Results Diagnostic Imaging Results: positive: Final report reviewed
[2022-12-10] MEDS ORDERED: ACETAMINOPHEN 160 MG/5 ML SUSP UDC PO PRN (16:32)
[2022-12-10] MEDS ORDERED: HALOPERIDOL 5 MG/ML VIAL IVP PRN (16:32)
[2022-12-10] MEDS ORDERED: CARBOXYMETHYLCELLULOSE OPHTH DROPS EACHEYE PRN (16:32)
[2022-12-10] MEDS: INSULIN LISPRO 300 UNIT/3 ML PEN SUBQ SCH ×2 (17:26→20:50)
[2022-12-10] MEDS: GABAPENTIN 300 MG CAPSULE PO SCH (20:51)
[2022-12-10] MEDS: SODIUM CHLORIDE FLUSH 0.9% 10 ML SYRINGE IVP SCH (20:52)
[2022-12-10] MEDS: MONTELUKAST 10 MG TABLET PO SCH (20:58)
[2022-12-11] MEDS: SODIUM CHLORIDE FLUSH 0.9% 10 ML SYRINGE IVP SCH ×3 (00:33→17:04)
[2022-12-11] MEDS: SODIUM CHLORIDE FLUSH 0.9% 10 ML SYRINGE IVP PRN ×2 (00:34→17:04)
[2022-12-11] MEDS ORDERED: ZINC OXIDE 20% OINT 30 GM TUBE TOP PRN (03:27)
[2022-12-11 04:35] LABS: BASOPHILS # (AUTO) 0.1 10^3/uL (0.0-0.1); BASOPHILS % (AUTO) 0.4 %; EOSINOPHILS # (AUTO) 0.7 10^3/uL (0.0-0.7); EOSINOPHILS % (AUTO) 5.1 %; HCT - HEMATOCRIT 45.5 % (42.0-52.0); HGB - HEMOGLOBIN 14.7 g/dL (14.0-18.0); LYMPHOCYTES # (AUTO) 1.9 10^3/uL (1.5-3.5); LYMPHOCYTES % (AUTO) 14.8 %; MEAN CORPUSCULAR HEMOGLOBIN 32.8 pg (27.0-31.0); MEAN CORPUSCULAR HGB CONC 32.3 g/dL (32.0-36.0); MEAN CORPUSCULAR VOLUME 101.6 fL (80.0-94.0); MEAN PLATELET VOLUME 11.6 fL (7.4-11.4); MONOCYTES # (AUTO) 0.9 10^3/uL (0.0-1.0); MONOCYTES % (AUTO) 6.9 %; NEUTROPHILS # (AUTO) 9.5 10^3/uL (1.5-6.6); NEUTROPHILS % (AUTO) 72.4 %; PLT - PLATELET COUNT 127 10^3/uL (130-450); RED BLOOD COUNT 4.48 10^6/uL (4.70-6.10); RED CELL DISTRIBUTION WIDTH 14.2 % (12.0-15.0); WHITE BLOOD COUNT 13.1 x10^3/uL (4.8-10.8)
[2022-12-11 04:52] LABS: CALCIUM 8.8 mg/dL (8.5-10.3); CREATININE 1.8 mg/dL (0.6-1.3)
[2022-12-11 08:28] LABS: ESTIMATED AVERAGE GLUCOSE 160 mg/dL (70-100); HEMOGLOBIN A1c% 7.2 % (4.27-6.07)
[2022-12-11] MEDS ORDERED: ENOXAPARIN 40 MG/0.4 ML SYRINGE SUBQ SCH (09:00)
[2022-12-11] MEDS ORDERED: FUROSEMIDE 40 MG/4 ML VIAL IVP STA (09:07)
[2022-12-11] MEDS: INSULIN LISPRO 300 UNIT/3 ML PEN SUBQ SCH ×4 (09:27→21:04)
[2022-12-11] MEDS: LEVOTHYROXINE 100 MCG TABLET PO SCH (09:27)
--- NOTE | 2022-12-11 12:58 | PHARMACY PROGRESS NOTE ---
- Best Possible Medication History Admit Date and Time: 12/10/22 1602 Processed by: Pharmacy Medication History completed: Yes Patient Interview: Pt unable to participate Secondary Source(s): Physician records, Pharmacy records, Insurance records As the person ultimately responsible for medication therapy, providers are able to order a medication from an existing home medication list in [facility] via the "Reconcile Routine" prior to Confirmation of that medication by media production support manager. Such practice is discouraged except when the physician, in their clinical judgment, deems that a medical need exists for a medication without regard to previous use.
--- NOTE | 2022-12-11 13:59 | PROVIDER PROGRESS NOTE ---
Assessment/Plan - Problem List (1) BRBPR (bright red blood per rectum) Assessment/Plan: This was reported to me by nurses Plan: I will stop the Lovenox Give SCDs for DVT prophylaxis No work-up is planned since comfort measures are now the goal (2) Syncope Qualifiers: Syncope type: unspecified Qualified Code(s): R55 - Syncope and collapse Assessment/Plan: He had witnessed syncope with emesis. This suggest that he was vasovagal (bradycardia and/or hypotension) were the cause of his syncope. Severe kavon ycardia (HR 26) was seen in the ER, and he then dropped his BP. His severe is the cause of his bradycardia, hypotension, heart failure, and his syncope. I placed him in Observation, since knew she wanted no aggressive measures for treatment. Plan: Remain in Observation, remain on telemetry so we can monitor if he has asystole No transfer for pacemaker is planned No intervention such as atropine He will not be admitted to the ICU for iv pressors Since he is more alert and BP improved, I will advance his diet Qualifiers: Syncope type: unspecified Qualified Code(s): R55 - Syncope and collapse (3) Hypotension Conclusion/Plan: The patient was in cardiogenic shock from end-stage aortic stenosis. Fink: No admission to the ICU or aggressive medical management is planned, as was requested by His low blood pressure will limit the types of meds we can use, Lasix and morphine will exacerbate his hypotension. I sis order Roxanol for dyspnea. He is more alert and wants to go home. I discussed with pt, and many family members at bedside today, that a plan needs to be made if he should get jeimy and syncopal again, and that he Hospice would be appropriate for him. The agreed. I did order Hospice (but they are not able to take on new pts on Sat or Sun (today is Sun). Since BP improved, I will order Lasix iv (4) CHF (congestive heart failure) Conclusion/Plan: As above in #3 & 4 Qualifiers: Heart failure type: unspecified Heart failure chronicity: acute on chronic Qualified Code(s): I50.9 - Heart failure, unspecified (5) Severe aortic stenosis Conclusion/Plan: Severe is the underlying cause of his bradycardia, his hypotension and his heart failure I explained to the that he may linger for several days with poor vital signs, or may pass away soon. Kayce, his has contacted all the children, 2 were at bedsidein ER and others have arrived today. Plan: The goal will be comfort directed. I did order meds on the Comfort package. I did order Hospice for taking him on as their patient since he did survive. (6) DM type 2 (diabetes mellitus, type 2) Conclusion/Plan: Medication list shows that he is on insulin, the confirms that he takes insulin and checks his glucose with the CGM Because of his somnolence I ordered a pured diet with no carb control limits but will do fingerstick checks and order ss insulin coverage. I will stop fingerstick checks if the wants us to stop needles and other painful procedures. Plan: Will advance him to a DM low salt diet (7) Acute kidney injury superimposed on CKD Conclusion/Plan: His EMR was reviewed. He runs creatinine of 1.4. His admission labs show creat inine of 1.8. This is very likely from cardiorenal syndrome Plan: With his hypotension we could not continue to administer Lasix initially. Today I will give LAsix iv, since BP is better and stable. Avoid nephrotoxins - Current Meds Current Meds: Current Medications Generic Name Dose Route Start Last Admin Trade Name Freq PRN Reason Stop Dose Admin Enoxaparin Sodium 40 mg 12/11/22 09:00 12/11/22 12:35 Enoxaparin 40 Mg/0.4 Ml Syringe SUBQ Not Given DAILY FAITH Gabapentin 900 mg 12/10/22 21:00 12/10/22 20:51 Gabapentin 300 Mg Capsule PO 900 mg QPM FAITH Administration Insulin Human Lispro 1 - 5 unit 12/10/22 17:00 12/11/22 12:02 Insulin Lispro 300 Unit/3 Ml Pen SUBQ 4 unit 0800,1200,1700,2100 FAITH Administration Protocol Levothyroxine Sodium 100 mcg 12/11/22 07:00 12/11/22 09:27 Levothyroxine 100 Mcg Tablet PO 100 mcg 0700 FAITH Administration Montelukast Sodium 10 mg 12/10/22 21:00 12/10/22 20:58 Montelukast 10 Mg Tablet PO 10 mg QPM FAITH Administration Multi-Ingredient Ointment 1 applic 12/11/22 03:27 12/11/22 04:48 Zinc Oxide 20% Oint 30 Gm Tube TOP 1 applic PRN PRN Administration Skin Care Sodium Chloride 10 ml 12/10/22 15:39 12/11/22 00:34 Sodium Chloride Flush 0.9% 10 Ml Syringe IVP 10 ml PRN PRN Administration NEEDED PER PROVIDER ORDERS Sodium Chloride 10 ml 12/10/22 17:00 12/11/22 09:28 Sodium Chloride Flush 0.9% 10 Ml Syringe IVP 10 ml 0100,0900,1700 FAITH Administration - Lab Result Fish Bone Diagrams: 12/11/22 04:26 12/11/22 04:26 - Additional Planning My Orders: My Active Orders 12/10/22 15:39 Activity Orders [RC] Q2HR IO [RC] IOSHIFT Initiate Bowel Care Protocol [RC] .protocol Initiate Line Care Protocol [RC] QSHIFT Initiate Personal Care Protoco [RC] .protocol Oxygen Therapy [RC] .PRN Telemetry (24 Hour) [RC] Q4HR Vital Signs [RC] Q4HR Acetaminophen [Tylenol] 650 mg PO Q4HR PRN Ondansetron Inj [Zofran Inj] 4 mg IVP Q6HR PRN Prochlorperazine Inj [Compazine Inj] 10 mg IVP Q6HR PRN Sodium Chloride Flush 0.9% [Normal Saline Flush 0.9%] 10 ml IVP PRN PRN Code Status [OTHERS] Routine Condition of Patient [OTHERS] Routine DVT Prophylaxis [OTHERS] Routine 12/10/22 15:41 Daily Weight [RC] 0600 12/10/22 15:42 Initiate Line Care Protocol [RC] QSHIFT Morphine Oral Soln [Roxanol] 10 mg PO Q4HR PRN 12/10/22 15:45 Blood Glucose Checks - Eating [RC] 0800,1200,1700,2100 Initiate Hypoglycemia Protocol [RC] .protocol 12/10/22 16:32 Cooling Unit [RC] PRN Oral Care - Nursing [RC] BID Turn and Reposition [RC] Q2H Warming Unit [RC] PRN Acetaminophen [Tylenol] 640 mg PO Q4H PRN Carboxymethylcellulose 1% Opht [Refresh 1% Ophth Drops] 1 drops EACHEYE QID PRN Haloperidol Inj [Haldol Inj] 0.5 mg IVP Q4H PRN 12/10/22 16:33 Comfort Care [] [facility] 12/10/22 17:00 Insulin Lispro [Humalog Kwikpen U-100] 1 - 5 unit SUBQ 0800,1200,1700,2100 Sodium Chloride Flush 0.9% [Normal Saline Flush 0.9%] 10 ml IVP 0100,0900,1700 12/10/22 18:11 Hernandez Insertion [RC] [facility] 12/10/22 21:00 Gabapentin [Neurontin] 900 mg PO QPM Montelukast [Singulair] 10 mg PO QPM 12/11/22 03:27 Zinc Oxide 20% Oint [Zinc Oxide] 1 applic TOP PRN PRN 12/11/22 07:00 Levothyroxine [Synthroid] 100 mcg PO 0700 12/11/22 09:00 Enoxaparin [Lovenox] 40 mg SUBQ DAILY 12/11/22 Lunch DIET [Low Sodium Diet] [DIET] 12/11/22 12:26 Miscellaenous Nursing Order [] [facility] 12/12/22 05:00 BMP - BASIC METABOLIC PANEL [CHEM] DAILYLAB MAGNESIUM [CHEM] DAILYLAB 12/13/22 05:00 BNP - B-NATRIURETIC PEPTIDE [CHEM] DAILYLAB Subjective - Subjective Patient Reports: Feeling Better (wants to go home) Objective Vital Signs: Vital Signs - 24 hr 12/10/22 12/10/22 12/10/22 13:49 14:19 14:41 Temperature Heart Rate 55 L 50 L 26 L Heart Rate [ Brachial] Respiratory 15 14 12 Rate Blood Pressure 128/88 H 117/73 64/51 L Blood Pressure [Right Brachial artery] O2 Saturation 97 95 98 If not protocol 2 2 2 : Oxygen Flow, liters/minute 12/10/22 12/10/22 12/10/22 15:25 15:46 17:00 Temperature 36.2 C L Heart Rate 35 L 41 L Heart Rate [ 50 L Brachial] Respiratory 14 16 20 Rate Blood Pressure 68/51 L 95/62 Blood Pressure 116/89 H [Right Brachial artery] O2 Saturation 97 95 100 If not protocol 2 2 : Oxygen Flow, liters/minute 12/10/22 12/11/22 12/11/22 20:47 01:00 04:59 Temperature 36.2 C L 36.3 C L 36.4 C L Heart Rate Heart Rate [ 57 L 56 L 62 Brachial] Respiratory 15 16 20 Rate Blood Pressure Blood Pressure 98/74 138/66 H 136/85 H [Right Brachial artery] O2 Saturation 96 93 96 If not protocol 1 2 2 : Oxygen Flow, liters/minute 12/11/22 12/11/22 12/11/22 07:35 09:30 11:40 Temperature 36.4 C L 36.8 C Heart Rate Heart Rate [ 65 81 62 Brachial] Respiratory 18 18 Rate Blood Pressure Blood Pressure 107/54 L 120/73 115/58 L [Right Brachial artery] O2 Saturation 96 96 If not protocol 2 2 : Oxygen Flow, liters/minute Oxygen O2 Source Nasal cannula Oxygen Flow Rate 2 I&O (Last 24 Hrs): Intake and Output Totals x24h 12/09/22 12/10/22 12/11/22 23:59 23:59 23:59 Intake Total 700 286 Output Total 600 1500 Balance 100 -1214 General: Alert, Oriented x3 HEENT: Mucous membr. moist/pink, Other (wearing O2 per nc.) Neck: Supple, No JVD Neuro: Alert, Non Focal, Other (Poor memory) Cardiovascular: Regular rate, Other (very soft S1, S2 abd a late peaking syst murmur in aortic area) Respiratory: No respiratory distress (wearing O2 by n.c. and at rest w/ HOB elevated) Abdomen: Soft, No tenderness Extremities: No clubbing, Other (3+ tense edema to thighs) - Results Results: Laboratory Results WBC 13.1 x10^3/uL (4.8-10.8) H 12/11/22 04:26 RBC 4.48 10^6/uL (4.70-6.10) L 12/11/22 04:26 Hgb 14.7 g/dL (14.0-18.0) 12/11/22 04:26 Hct 45.5 % (42.0-52.0) 12/11/22 04:26 MCV 101.6 fL (80.0-94.0) H 12/11/22 04:26 MCH 32.8 pg (27.0-31.0) H 12/11/22 04:26 MCHC 32.3 g/dL (32.0-36.0) 12/11/22 04:26 RDW 14.2 % (12.0-15.0) 12/11/22 04:26 Plt Count 127 10^3/uL (130-450) L 12/11/22 04:26 MPV 11.6 fL (7.4-11.4) H 12/11/22 04:26 Neut # (Auto) 9.5 10^3/uL (1.5-6.6) H 12/11/22 04:26 Lymph # (Auto) 1.9 10^3/uL (1.5-3.5) 12/11/22 04:26 [place] # (Auto) 0.9 10^3/uL (0.0-1.0) 12/11/22 04:26 Eos # (Auto) 0.7 10^3/uL (0.0-0.7) 12/11/22 04:26 Baso # (Auto) 0.1 10^3/uL (0.0-0.1) 12/11/22 04: Absolute Nucleated RBC 0.00 x10^3/uL 12/11/22 04:26 Nucleated RBC % 0.0 /100WBC 12/11/22 04:26 PT 13.6 secs (9.9-12.6) H 12/10/22 12:21 INR 1.2 (0.8-1.2) 12/10/22 12:21 VBG pH 7.348 (7.31-7.41) 12/10/22 12:21 VBG pCO2 56.8 mmHg (41-51) H 12/10/22 12:21 VBG pO2 33.5 mmHg (25-47) 12/10/22 12:21 VBG HCO3 30.5 mmol/L (23-28) H 12/10/22 12:21 VBG Total CO2 32.3 mmol/L (24-29) H 12/10/22 12:21 VBG O2 Saturation 62.7 % (60-80) 12/10/22 12:21 VBG Base Excess 3.2 mmol/L (-2 - +2) H 12/10/22 12:21 Sodium 139 mmol/L (135-145) 12/11/22 04:26 Potassium 4.0 mmol/L (3.5-4.5) 12/11/22 04:26 Chloride 102 mmol/L (101-111) 12/11/22 04:26 Carbon Dioxide 32 mmol/L (21-32) 12/11/22 04:26 Anion Gap 5.0 (6-13) L 12/11/22 04:26 BUN 44 mg/dL (6-20) H 12/11/22 04:26 Creatinine 1.8 mg/dL (0.6-1.3) H 12/11/22 04:26 Estimated GFR (MDRD) 36 (>89) L 12/11/22 04:26 Glucose 221 mg/dL (74-104) H 12/11/22 04:26 POC Whole Bld Glucose 291 mg/dL (70 - 100) H 12/11/22 11:45 Estimat Average Glucose 160 mg/dL (70-100) H 12/11/22 04:26 Hemoglobin A1c % 7.2 % (4.27-6.07) H 12/11/22 04:26 Lactic Acid 1.4 mmol/L (0.5-2.2) 12/10/22 12:21 Calcium 8.8 mg/dL (8.5-10.3) 12/11/22 04:26 Total Bilirubin 0.7 mg/dL (0.2-1.0) 12/10/22 12:21 AST 13 IU/L (10-42) 12/10/22 12:21 ALT 12 IU/L (10-60) 12/10/22 12:21 Alkaline Phosphatase 81 IU/L (42-121) 12/10/22 12:21 Troponin I High Sens 7.3 ng/L (2.3-19.7) 12/10/22 12:21 B-Natriuretic Peptide 25 pg/mL (5-100) 12/10/22 12:21 Total Protein 7.0 g/dL (6.4-8.9) 12/10/22 12:21 Albumin 3.3 g/dL (3.2-5.5) 12/10/22 12:21 Globulin 3.7 g/dL (2.1-4.2) 12/10/22 12:21 Albumin/Globulin Ratio 0.9 (1.0-2.2) L 12/10/22 12:21 Lipase 22 U/L (11-82) 12/10/22 12:21 TSH 7.73 uIU/mL (0.34-5.60) H 12/10/22 12:21 Free T4 Direct 1.22 ng/dL (0.58-1.64) 12/10/22 12:21
[2022-12-11] MEDS: GABAPENTIN 300 MG CAPSULE PO SCH (21:02)
[2022-12-11] MEDS: MONTELUKAST 10 MG TABLET PO SCH (21:10)
[2022-12-11] MEDS ORDERED: diphenhydrAMINE 25 MG CAPSULE PO PRN (21:26)
--- NOTE | 2022-12-11 21:26 | PROVIDER PROGRESS NOTE ---
Hospitalist Cross-cover Note - Cross-Cover Note Cross-Cover Note: Called by RN stating "Patient admitted for Bradycardia and syncope, is comfort care at this time. Patient has no known drug allergies and has a chronic rash with itching. Family is requesting Benadryl for itching. Oral is okay. Patient given 10 mg Montelukast and 900 mg Gabapentin at 21:00 as home medications." Chart and EMR briefly reviewed and have ordered Benadryl po as requested by patients family.
[2022-12-12] MEDS: SODIUM CHLORIDE FLUSH 0.9% 10 ML SYRINGE IVP SCH ×2 (00:05→09:11)
[2022-12-12 06:35] LABS: CALCIUM 8.8 mg/dL (8.5-10.3); CREATININE 1.7 mg/dL (0.6-1.3); MAGNESIUM 1.8 mg/dL (1.7-2.3); POTASSIUM 3.9 mmol/L (3.5-4.5)
[2022-12-12] MEDS: INSULIN LISPRO 300 UNIT/3 ML PEN SUBQ SCH ×2 (07:48→13:05)
[2022-12-12] MEDS: LEVOTHYROXINE 100 MCG TABLET PO SCH (07:48)
[2022-12-12] MEDS ORDERED: FUROSEMIDE 40 MG/4 ML VIAL IVP STA (08:38)
[2022-12-12] MEDS ORDERED: allopurinoL 100 MG TABLET PO SCH (09:00)
[2022-12-12] MEDS ORDERED: FUROSEMIDE 40 MG TABLET PO SCH (12:00)
--- NOTE | 2022-12-12 12:03 | PROVIDER PROGRESS NOTE ---
Subjective - Prog Note Date Prog Note Date: 12/12/22 - Subjective Subjective: Full Hospice consult to follow: Recommendations for discharge: 1) Eat smaller breakfast (suspect large meal led to diversion of blood to the gut which resulted in syncope d/t critical ) 2) Goal to restrict fluids to around 2Liters/24 hrs 3) Goal to keep sodium intake less than 2 grams 4) If his ambulatory sat is 87% or less, send home w/O2 (hospice will assume payment of oxygen upon admission) 5) Send w/hospice comfort kit (in the ambulatory discharge orders): I suspect he won't need to use prior to hospice admission Use olanzepine for nausea Use morphine 0.25 ml (5 mg) every 4 hours as needed for shortness of breath/pain Use senna for constipation Use lorazepam for anxiety 6) If pt/ desires, hospice can schedule admission on 12/14/22. Please have spouse call to confirm. Objective - Vital Signs/Intake & Output Vital Signs: Vital Signs x48h Temp Pulse Resp BP Pulse Ox O2 Flow Rate 12/12/22 07:27 36.5 C 63 20 144/78 H 92 2 Intake & Output: Intake & Output 12/09/22 12/10/22 12/11/22 12/12/22 23:59 23:59 23:59 23:59 Intake Total 700 766 360 Output Total 600 3200 1900 Balance 100 -0753 -1540 - Lab Results Fish Bones: 12/11/22 04:26 12/12/22 05:32 Other Labs: Lab Results x24hrs 12/12/22 12/12/22 12/12/22 Range/Units 11:31 07:23 05:32 Sodium 136 (135-145) mmol/L Potassium 3.9 (3.5-4.5) mmol/L Chloride 100 L (101-111) mmol/L Carbon Dioxide 32 (21-32) mmol/L Anion Gap 4.0 L (6-13) BUN 36 H (6-20) mg/dL Creatinine 1.7 H (0.6-1.3) mg/dL Estimated GFR (MDRD) 39 L (>89) Glucose 209 H (74-104) mg/dL POC Whole Bld Glucose 265 H 196 H (70 - 100) mg/dL Calcium 8.8 (8.5-10.3) mg/dL Magnesium 1.8 (1.7-2.3) mg/dL 12/11/22 Range/Units 16:39 Sodium (135-145) mmol/L Potassium (3.5-4.5) mmol/L Chloride (101-111) mmol/L Carbon Dioxide (21-32) mmol/L Anion Gap (6-13) BUN (6-20) mg/dL Creatinine (0.6-1.3) mg/dL Estimated GFR (MDRD) (>89) Glucose (74-104) mg/dL POC Whole Bld Glucose 308 H (70 - 100) mg/dL Calcium (8.5-10.3) mg/dL Magnesium (1.7-2.3) mg/dL
[2022-12-12 12:30] VITALS: BP 138/87; O2SAT 97
--- NOTE | 2022-12-12 12:35 | Discharge Plan ---
Discharge Plan Problem Reviewed?: Yes Disposition: Home, Self Care Condition: Serious Prescriptions: LORazepam [Ativan] 0.5 mg PO Q6H PRN #15 tablet PRN Reason: Anxiety Morphine Sulfate 5 mg PO Q4H PRN #30 ml PRN Reason: Dyspnea Senna [Senokot] 8.6 mg PO DAILY PRN #15 tablet PRN Reason: Constipation OLANZapine ODT [Zyprexa Odt] 5 mg TL DAILY PRN #15 tablet PRN Reason: Nausea / Vomiting Diet: Low Sodium Activity Restrictions: Activity as Tolerated Shower Restrictions: No Driving Restrictions: Yes Assistance Devices: Wheelchair Instruction Topics: Heart Failure Diet Changes, Aortic Stenosis Ch Health Concerns: You were hospitalized because you fainted. We found the reason was you had an extremely low heart rate, low blood pressure, and also congestive heart failure with low oxygen level. All of these were caused by your severe aortic valve stenosis which will not be repaired, as you have requested. These symptoms are serious consequences of the heart going into heart failure. You have been seen by the Hospice medical driver. She has given advice on things for you to do after discharge which are listed below. Also, on 12/14/2022, Hospice can take you on as their patient, to help you and your family going forward, as you reach end-of-life. Plan of Treatment: 1) Eat a smaller breakfast (we suspect that a large meal led to diversion of blood to the gut, away from your head and heart, which then resulted in fainting due to your pre-existing critical Aortic valve stenosis) 2) Goal is to restrict fluids to around 2 Liters per day. You can take the measured container from here to use at home. 3) Goal is to keep sodium intake to less than 2 grams per day 4) You were tested to see if you need a new home oxygen order, and you do not. If you will need oxygen in the future, Hospice will assume payment of oxygen upon your admission to Hospice. 5) I am ordering several new medications for you to use at home. The new prescriptions were electronically sent to your [facility] pharmacy in [place]. Use olanzepine for nausea Use morphine 0.25 ml (5 mg) every 4 hours as needed for shortness of breath or severe pain Use senna for constipation Use lorazepam for anxiety 6) Call the Hospice number anytime ([phone]), to confirm that you want to have Hospice take you on as their patient, starting 12/14/22. Care Goals: Comfort and dying with dignity are the goals. Assessment: The patient and understand and are agreeable with the plan. Additional Instructions or Follow Up instructions: If you have new or worsening symptoms, call the Hospice team for advice. Follow-Up Care: Hospice No Smoking: If you smoke, Please STOP! Call for help.
--- NOTE | 2022-12-12 13:10 | CONSULTATION NOTE ---
Referring Provider Name of Referring Provider:: Dr. 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 Pt sustained a left ankle fx 05/16. He had an echo done at that time that revealed critical (mild on echos in 2012 and 2017). He underwent fx repair and was NWB. Ortho recommended cardiology consult but at that time, pt was clear he didn't want to pursue valve replacement, so did not seek cardiology consultation. He went to rehab but had difficulty w/rehab d/t NWB status. His notes he has had generalized weakness since that time. He has also had a nonhealing wound to the left ankle,for which he is receiving Home Health. HH RN noted crackles in his lungs several weeks ago, and pt saw his PCP who dx'd CHF. At baseline, he uses a walker/wheelchair and requires assist to the bathroom and with performing ADLs. His still works and has caregivers in the am (a friend of spouse's dtr) and caregiver in pm (pt's son). He does not have any baseline CP/SOB. Occasionally, he will c/o being dizzy but it typically passes w/o complication. Every Monday, pt and spouse use para-transit to go out to breakfast with friends. On Monday am, pt was at his baseline. They took Para transit to [facility] and he ate a large meal. While waiting for the bus to pick him back up, thought he'd fallen asleep, but he had regurgitated some food. She got him cleaned up as the bus arrived and as he was riding the lift, he had increased emesis and suffered syncope. EMS was called and he was found to be bradycardic/hypotensive. He received IVF and was transported to the ED. Head CT showed no acute findings. CXR showed pulmonary edema, but BNP was normal. He received IV furosemide 12/10, 12/11, 8/21. He has required 2lpm O2 (not chronically O2 dependent). Today, pt reports he is feeling back to baseline. notes she watched him go to the bathroom earlier and feels he is near his baseline mobility and feels comfortable taking him home. She is requesting hospice support. Pt denies any prior hx of syncope. Also notes that the only large meal he typically eats is in the am. His notes he is cautious about fluid intake and does not salt food. History - Past Medical History Cardiovascular: reports: Hypertension, High cholesterol, Valve disorder (Severe , he wanted no Cardiology evals or intervention ever) Respiratory: reports: None Neuro: reports: Other (had NPH, has a REHABILITATION ATTENDANT shunt) Endocrine/Autoimmune: reports: Type 2 diabetes, HyPOthyroidism GI: reports: None : reports: Nocturia, Frequency Psych: reports: Anxiety Musculoskeletal: reports: Osteoarthritis, Chronic back pain, Other MRSA Hx?: No - Past Surgical History Neuro: reports: REHABILITATION ATTENDANT shunt - Family & Social History Living arrangement: At home Living Situation: With spouse/s.o. - POLST Patient has POLST: No Meds/Allgy - Home Medications Home Medications: Ambulatory Orders Medication Instructions Recorded Confirmed Aspirin 325 mg PO DAILY 09/09/16 12/11/22 Insulin NPH Hum/Reg Insulin Hm 44 unit SQ DAILY 09/09/16 12/11/22 [Humulin 70/30 Kwikpen] Levothyroxine Sodium 100 mcg PO QDBREAKFAST 09/09/16 12/11/22 Carvedilol 3.125 mg PO BID 12/03/18 12/11/22 Gabapentin 900 mg PO QPM 12/03/18 12/11/22 Telmisartan 80 mg PO DAILY 12/31/20 12/11/22 allopurinoL [Zyloprim] 200 mg PO DAILY 12/31/20 12/11/22 Montelukast [Singulair] 10 mg PO QPM 01/02/21 12/11/22 Acetaminophen [Tylenol] 650 mg PO TID PRN 12/11/22 12/11/22 Empagliflozin [Jardiance] 10 mg PO DAILY 12/11/22 12/11/22 Furosemide [Lasix] 40 mg PO 1200 12/11/22 12/11/22 Furosemide [Lasix] 80 mg PO DAILY 12/11/22 12/11/22 Insulin NPH Hum/Reg Insulin Hm 32 unit SUBQ QPM 12/11/22 12/11/22 [Humulin 70/30 Kwikpen] Potassium Chloride [K-Tab ER] 10 meq PO DAILY 12/11/22 12/11/22 - Allergies Allergies/Adverse Reactions: Allergies Allergy/AdvReac Type Severity Reaction Status Date / Time No Known Drug Allergies Allergy Verified 08/28/21 10:33 Exam - Vital Signs Reviewed Vital Signs: Yes Vital Signs: Vital Signs x48h Temp Pulse Pulse Resp BP Pulse Ox O2 Flow Rate 12/12/22 12:22 36.4 C L 77 16 138/87 H 97 2 12/12/22 07:27 36.5 C 63 20 144/78 H 92 2 - Physical Exam General Appearance: positive: No acute distress, Alert, Other (sitting up in bed, eating) Eyes Bilateral: positive: Normal inspection, PERRL, EOMI, No lid inflammation ENT: positive: ENT inspection nml, Pharynx nml Neck: positive: Nml inspection, Thyroid nml, Trachea midline Respiratory: positive: Chest non-tender, No respiratory distress, Other (diminished rt base, o/w clear) Cardiovascular: positive: Regular rate & rhythm, Systolic murmur (II/) Peripheral Pulses: positive: 1+ Abdomen: positive: Non-tender, Nml bowel sounds, No distention, Other (body habitus limits exam) Skin: positive: Color nml, Warm, Dry, Other (venous stasis changes noted to BLE s) Extremities: positive: Non-tender, Other (nonpitting edema) Neurologic/Psychiatric: positive: Other (Alert, oriented x 2 (difficult to fully assess as talks for him)) Conclusion/Plan - Lab Results Lab results reviewed: Yes Fish Bones: 12/11/22 04:26 12/12/22 05:32 - Diagnostic Imaging Results Diagnostic Imaging Results: positive: Final report reviewed - Other Other Results/Comments: 1. Syncope Suspect d/t eating a large meal, blood was diverted to the gut and that led to decreased cerebral perfusion. Discussed that volume status is tricky given his pulmonary edema/CHF, CKD, and aortic stenosis. Encouraged him to eat smaller meals, be cautious w/fluid and salt intake. 2. Critical As his valve area is less than 1.0cm, he meets criteria for hospice, pa rticularly given he is now having sxs and he does not wish to proceed w/valve replacement. 3. Acute on chronic diastolic CHF As above. 4. NPH s/p REHABILITATION ATTENDANT shunt Spouse notes he had a shuntogram recently that showed good shunt function. 5. Generalized weakness Pt suffered overall decline during his time in rehab d/t his NWB status. Using walker/WC primarily for mobility. notes he lives primarily a bed to chair existence. 6. IDDM Continues to eat fairly well overall. Continue present insulin regimen. 7. Chronic left ankle wound Being managed by HH. Explained that if they elect hospice, they would not be able to continue w/HH. expresses understanding. They are comfortable w/dc home today w/hospice f/u on 12/14. Recommend Hospice comfort kit gets ordered by primary team at d/c in the event pt develops sxs prior to hospice admission. Thank you for involving us in the care of your patient.
--- NOTE | 2022-12-12 14:52 | DISCHARGE SUMMARY ---
Discharge Summary Admit Date: 12/10/22 Discharge Date: 12/12/22 Discharging Provider: Dr Ruby Sheehan Primary Care Provider: CHATO Ward Code Status: Do Not Attempt Resuscitation Condition at Discharge: Fair Discharge Disposition: 01 Home, Self Care - HPI History of Present Illness: This is an 82-year-old male with history of diabetes on insulin, history of NPH with an intracerebral shunt, history of aortic stenosis diagnosed years ago for which she wanted no Cardiology consultation and no interventions. The patient has been feeling fine and went out with his for breakfast at a restaurant. He uses a wheelchair and after breakfast he had syncope while in his wheelchair, his eyes rolled back briefly. He then had emesis. An ambulance was called. At the scene he had BP of 70/50 and he recieved iv fluids. O2 saturationwas 96%. Heart rate is not known, as there are no ambulance run sheet scanned into his chart. He was brought to the emergency room, and he was desaturating to 87% on room air and was started on O2 nasal cannula. His work-up showed that he has CHF and he was given IV Lasix. He then dropped his heart rate to 26. The reminded the ED staff that the patient is a DNR/DNI and does not want cardiac i nterventions, no atropine was given therefore. With this persistent bradycardia with HR between 30-40, he dropped his blood pressure to 67 systolic. He was given 250 cc fluid bolus. The ED provider then spoke to the who reiterated that she does not want any aggressive management or heroics, no special interventions for his bradycardia. The focus would be to make him comfortable. The ED provider then spoke to me about this patient. I examined the patient and spoke to the as well and confirmed these wishes. He will be placed in Observation status. Patient CODE STATUS is DNR/DNI. - HOSPITAL COURSE Hospital Course: (1) Syncope He had witnessed syncope with emesis. This suggest that he was vasovagal. Severe bradycardia (HR 26) was seen in the ER, and he then dropped his BP to 70. His severe is likely the cause of his bradycardia, hypotension, heart failure, and his syncope. (2) Bradycardia His Carvedilol was stopped and he was told not to use it ever. His HR slowly improved to 70, and on telemetry there were no further bradycardias. (3) Hypotension The patient was in cardiogenic shock from end-stage aortic stenosis. No admission to the ICU or aggressive medical management was planned, as was requested by . His Telmisartan was stopped and he was told not to use it ever. His low blood pressure did limited the types of meds we could use, Lasix and Morphine would exacerbate his hypotension. But, as his heart rate improved, so did his syst. blood pressure to 120, the following day and we were able to dose him with IV diuretics. As he became more alert and wanted to go home, I discussed with pt, and many family members at bedside, that a plan needs to be made if he should get jeimy and syncopal again, and that Hospice would be appropriate for him. The agreed. I did order Hospice and he and his met Dr Olivera the following day. (4) CHF (congestive heart failure) CHF was seen on x-ray and he was hypoxic. He was started on supplemental O2. His prognosis is poor when CHF accompanies critical aortic stenosis. He was referred to Hospice. He was seen in consultation by Dr. Olivera. He can become a Hospice patient in several days, if they desire. He may continue taking his home doses of Lasix. He and the were instructed about fluid limitation to 2000 mL/day and salt limitation to 2000 mg/day. He was tested to see if he needs a new home oxygen order and he does not, O2 saturations remained greater than 92% on room air, even when ambulating. (5) Severe aortic stenosis Severe is the underlying cause of his bradycardia, his hypotension, and his heart failure, which bodes a poor prognosis. The goal will be comfort directed. He was started on some medications in the comfort kit including Roxanol as needed for dyspnea, Zyprexa as needed for nausea, lorazepam as needed for anxiety, and he was discharged on those meds (6) DM type 2 (diabetes mellitus, type 2) Medication list shows that he is on insulin, the confirms that he takes insulin and checks his glucose. (7) Acute kidney injury superimposed on CKD He usually runs creatinine of 1.4. His admission labs showed creatinine of 1.8. This was very likely from cardiorenal syndrome. He was able to get 2 consecutive days of IV Lasix and creatinine on the day of discharge was 1.7 (8) BRBPR (bright red blood per rectum) This was reported by nurses. I stopped the Lovenox ordered for DVT prophylaxis. Hgb remained stable at 15>> 14.7. No work-up is planned, since comfort measures are now the goal - ALLERGIES Allergies/Adverse Reactions: Allergies Allergy/AdvReac Type Severity Reaction Status Date / Time No Known Drug Allergies Allergy Verified 08/28/21 10:33 - MEDICATIONS Home Medications: Ambulatory Orders Medication Instructions Recorded Confirmed Aspirin 325 mg PO DAILY 09/09/16 12/11/22 Insulin NPH Hum/Reg Insulin Hm 44 unit SQ DAILY 09/09/16 12/11/22 [Humulin 70/30 Kwikpen] Levothyroxine Sodium 100 mcg PO QDBREAKFAST 09/09/16 12/11/22 Gabapentin 900 mg PO QPM 12/03/18 12/11/22 allopurinoL [Zyloprim] 200 mg PO DAILY 12/31/20 12/11/22 Montelukast [Singulair] 10 mg PO QPM 01/02/21 12/11/22 Acetaminophen [Tylenol] 650 mg PO TID PRN 12/11/22 12/11/22 Empagliflozin [Jardiance] 10 mg PO DAILY 12/11/22 12/11/22 Furosemide [Lasix] 40 mg PO 1200 12/11/22 12/11/22 Furosemide [Lasix] 80 mg PO DAILY 12/11/22 12/11/22 Insulin NPH Hum/Reg Insulin Hm 32 unit SUBQ QPM 12/11/22 12/11/22 [Humulin 70/30 Kwikpen] Potassium Chloride [K-Tab ER] 10 meq PO DAILY 12/11/22 12/11/22 LORazepam [Ativan] 0.5 mg PO Q6H PRN #15 tablet 12/12/22 Morphine Sulfate 5 mg PO Q4H PRN #30 ml 12/12/22 OLANZapine ODT [Zyprexa Odt] 5 mg TL DAILY PRN #15 tablet 12/12/22 Senna [Senokot] 8.6 mg PO DAILY PRN #15 tablet 12/12/22 - PHYSICAL EXAM AT DISCHARGE General Appearance: positive: No acute distress, Alert, Other (Male pattern baldness) Eyes Bilateral: positive: Normal inspection, EOMI ENT: positive: ENT inspection nml, No signs of dehydration Neck: positive: Nml inspection, No JVD Respiratory: positive: No respiratory distress, Breath sounds nml Cardiovascular: positive: Regular rate & rhythm, Systolic murmur Abdomen: positive: Non-tender, No distention, Other (Obese with a pannus) Skin: positive: Warm, Dry Extremities: positive: Other (3+ edema to upper thighs) Neurologic/Psychiatric: positive: Oriented x3, Motor nml - LABS Result Diagrams: 12/11/22 04:26 12/12/22 05:32 - DIAGNOSTIC IMAGING Diagnostic Imaging Results: Final report reviewed - FOLLOW UP Follow Up: See PCP for a hospital follow-up visit, or return care over to the Hospice team. - TIME SPENT Time Spent in Discharge (Minutes): 40
== END 2022-12-12 16:00 | disposition home or self-care (01) ==
LOC: ED 11:58 → MS2 16:02
PROVIDERS: ADMIT Internal Medicine; ATTEND Internal Medicine
DX: R55 Syncope and collapse (principal); I13.0 Hypertensive heart and chronic kidney disease with heart failure and stage 1 through stage 4 chronic kidney disease, or unspecified chronic kidney disease; I35.0 Nonrheumatic aortic (valve) stenosis; I50.33 Acute on chronic diastolic (congestive) heart failure; I95.9 Hypotension, unspecified; E03.9 Hypothyroidism, unspecified; E11.22 Type 2 diabetes mellitus with diabetic chronic kidney disease; E78.00 Pure hypercholesterolemia, unspecified; N17.9 Acute kidney failure, unspecified; N18.9 Chronic kidney disease, unspecified; K62.5 Hemorrhage of anus and rectum; I44.4 Left anterior fascicular block; G31.9 Degenerative disease of nervous system, unspecified; G89.29 Other chronic pain; M54.9 Dorsalgia, unspecified; S91.002A Unspecified open wound, left ankle, initial encounter; X58.XXXA Exposure to other specified factors, initial encounter; R00.1 Bradycardia, unspecified; R01.1 Cardiac murmur, unspecified; R41.0 Disorientation, unspecified; R53.1 Weakness; R94.31 Abnormal electrocardiogram [ECG] [EKG]; Z66 Do not resuscitate; Z79.4 Long term (current) use of insulin; Z79.82 Long term (current) use of aspirin; Z79.890 Hormone replacement therapy; Z79.899 Other long term (current) drug therapy; Z98.2 Presence of cerebrospinal fluid drainage device; Z99.3 Dependence on wheelchair
CPT/HCPCS: 36415; 70450; 71045; 80048; 80053; 82803; 83036; 83605; 83690; 83735; 83880; 84439; 84443; 84484; 85025; 85610; 93005; 94761; 96361; 96374; 96376; 99285; A9270; G0378

== ENCOUNTER 2022-12-30 07:48 | Outpatient (CLI) | payer MEDICARE | END 2022-12-30 07:49 | disposition EMS.NT | LOC: EMS 07:48 | DX: Z03.89 Encounter for observation for other suspected diseases and conditions ruled out (principal) ==

== ENCOUNTER 2022-12-31 07:09 | Outpatient (CLI) | payer MEDICARE | END 2022-12-31 07:10 | disposition EMS.NT | LOC: EMS 07:09 | DX: Z03.89 Encounter for observation for other suspected diseases and conditions ruled out (principal) ==